=== PATIENT | female | born 1950 | race Caucasian/White ===

== ENCOUNTER 2016-09-21 16:35 | Inpatient (IN) | payer BC, MEDICARE ==
[2016-09-21] MEDS ORDERED: methylPREDNISolone 125 MG* 2 ML VIAL IV ONE (17:06)
[2016-09-21] MEDS ORDERED: NS 0.9% 1000 ML* 1,000 ML IV ONE (17:06)
--- NOTE | 2016-09-21 18:06 | RAD ---
Indication: Cough. 2 views of the chest demonstrates no mediastinal shift. Heart is of normal size and configuration. Lungs are clear. Hyperinflated lung luu are noted. IMPRESSION: No active cardiopulmonary disease is noted.
[2016-09-21] MEDS ORDERED: GuaiFENesin DM* 5 ML UDC PO ONE (18:09)
[2016-09-21 18:23] LABS: Hematocrit 38 % (35-47); Hemoglobin 12.4 g/dl (12.0-16.0); Mean Corpuscular HGB Conc 33 g/dl (31-36); Mean Corpuscular Hemoglobin 29 pg (27-31); Mean Corpuscular Volume 89 fL (80-97); Mean Platelet Volume 8 um3 (7.4-10.4); Red Blood Count 4.21 10^6/ul (4.0-5.4); Red Cell Distribution Width 13 % (10.5-15); White Blood Count 13.1 10^3/ul (3.5-10.8)
[2016-09-21] MEDS ORDERED: Albuterol/Ipratropium NEB.SOL* Albuterol 2.5 MG/Ipratropium 0.5 MG 3 ML ONE (18:23)
[2016-09-21] MEDS: Albuterol/Ipratropium NEB.SOL* Albuterol 2.5 MG/Ipratropium 0.5 MG 3 ML INH SCH (18:26)
[2016-09-21 18:42] LABS: Albumin 3.9 g/dL (3.2-5.2); BUN/Creatinine Ratio 14.3 (8-20); C Reactive Protein 11.32 mg/L (< 5.00); Calcium 8.7 mg/dL (8.6-10.3); EGFR African American 139.3 (>60); EGFR Non-African American 108.3 (>60); Globulin 3.1 g/dL (2-4); Potassium 3.4 mmol/L (3.5-5.0); Total Bilirubin 0.3 mg/dL (0.2-1.0)
[2016-09-21] MEDS ORDERED: Potassium Chlor TAB* 20 MEQ TAB.ER PO ONE (18:47)
[2016-09-21] MEDS ORDERED: Aspirin EC TAB* 325 MG PO ONE (19:15)
[2016-09-21] MEDS ORDERED: Benzonatate CAP* 100 MG PO PRN (20:10)
[2016-09-21] MEDS ORDERED: NS 0.9% 1000 ML* 1,000 ML IV SCH (20:45)
[2016-09-21] MEDS ORDERED: Azithromycin TAB* 250 MG PO ONE (20:49)
[2016-09-21] MEDS ORDERED: Dicyclomine CAP* 10 MG PO PRN (20:53)
[2016-09-21 21:20] LABS: Magnesium 1.8 mg/dL (1.9-2.7)
[2016-09-21 21:56] LABS: Urine Bacteria 2+ (Absent); Urine Bilirubin Negative (Negative); Urine Glucose Negative (Negative); Urine Nitrite Negative (Negative)
[2016-09-21] MEDS ORDERED: Azithromycin TAB* 250 MG ONE (22:56)
--- NOTE | 2016-09-21 23:01 | HP ---
HISTORY AND PHYSICAL: DATE OF ADMISSION: 09/21/16 PRIMARY CARE PROVIDER: John Trujillo MD ATTENDING PHYSICIAN: Daquan Braun MD* (dictated by Mariana Anderson NP) CHIEF COMPLAINT: Cough with associated chest tightness with pain radiating into the neck and left arm. HISTORY OF PRESENT ILLNESS: Ms. Rodriguez is a 66-year-old female with past medical history significant for anxiety, depression, migraines, insomnia, back pain, and tobacco abuse who presents to the emergency room with complaints of cough for 1 day with associated chest discomfort. 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 The patient states that the cough is occasionally productive, but is mostly dry. She took Throat Coat tea, which did help some with her cough. The patient is unaware if she has had fever or chills. She is always cold, although she did have some sweating yesterday with opening and closing windows, trying to get comfortable with temperature. The patient reports chest tightness that started yesterday. She is unsure if this is exacerbated by any exertion as she has not been very active since this occurred. She also has had a shortness of breath feeling, though she is unable to catch her breath with her cough. She denies any nausea. The patient states the pain initially started at her left breast and then travelled to her collar bone and then to her arm and into her forearm and thumb on the left side. The patient also states that she just generally feels foggy. Based off her symptoms , she decided to present to the emergency room for further evaluation of her symptoms. While in the emergency room, the patient received IV fluids, Robitussin, DuoNeb , Solu-Medrol, and aspirin. She initially had wheezing upon her arrival that resolved. The patient also states that her chest pain, cough, and shortness of breath has improved since her DuoNeb. The patient had labs remarkable for elevated white blood cell count of 13.1. Sodium of 130, potassium of 3.4, chloride of 100, CRP of 11.32. Troponin was 0.00. The patient had a chest x- ray showing no active cardiopulmonary disease. She had an EKG showing sinus tachycardia with rate of 102. She was noted to have ST depression in leads 2, 3 , aVF and V3 to V5. She has no previous EKGs for comparison. Hospitalists were asked to evaluate the patient for admission. PAST MEDICAL HISTORY: 1. Anxiety. 2. Depression. 3. Insomnia. 4. Back pain. 5. Migraines. 6. Tobacco abuse. PAST SURGICAL HISTORY: 1. Status post tubal ligation. 2. Status post appendectomy. 3. Status post ORIF of her left leg. HOME MEDICATIONS: Include: 1. Trazodone 50 to 100 mg oral daily at bedtime as needed for sleep. 2. Clonazepam 1 mg oral twice daily. 3. Ambien 10 mg oral daily at bedtime as needed for sleep. 4. Imitrex 6 mg subcutaneous as needed for migraine headache. 5. Ventolin 10 to 20 mg oral 4 times daily as needed for cramping. 6. Flexeril 5 to 10 mg oral daily at bedtime as needed for muscle spasms. 7. Celexa 40 mg oral daily. ALLERGIES: REMERON, lactose intolerant, AUGMENTIN, PRISTIQ, and ABILIFY. FAMILY HISTORY: The patient's maternal grandmother had a history of cardiomyopathy. She reports that her maternal grandmother's siblings all had heart disease and passed in their 60s. The patient denies any family history of diabetes mellitus. Her maternal grandfather had a history of lung cancer. The patient's mother had a history of COPD and her father passed at age 58 from emphysema. SOCIAL HISTORY: The patient smoked approximately a quarter pack a day for the last 45 to 50 years. She denies alcohol or recreational drug use. 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 The patient's daughter, Ernestine Gomez (Maggie), will be her surrogate decision maker in the event she is unable to make decisions for herself. Dianne can be reached at [phone]. REVIEW OF SYSTEMS: I performed a 14-point review of systems. All the pertinent positives and negatives are mentioned in the history of present illness. The remaining review of systems is negative. PHYSICAL EXAMINATION GENERAL APPEARANCE: The patient is alert, pleasant, appears to be in no acute distress. VITAL SIGNS: Temperature 98.8, heart rate 102, respiratory rate 19, O2 sat 96% on room air, blood pressure 116/56. HEENT: Normocephalic, atraumatic. Pupils are equal and reactive to light. Extraocular movements are intact. NECK: Supple. There is no lymphadenopathy noted. RESPIRATORY: There is no accessory muscle use and the lungs are clear to auscultation bilateral. CARDIOVASCULAR: Regular rate and rhythm. S1 and S2 present. There are no murmurs, rubs or gallops heard. ABDOMEN: Soft, nontender, and nondistended. There are bowel sounds present x4. EXTREMITIES: There is no lower extremity edema. DP and PT pulses are 2+ and symmetric. MUSCULOSKELETAL: There is no clubbing or cyanosis noted. The patient exhibits good strength in all extremities. Chest discomfort is reproducible with palpation to the left breast. NEUROLOGICAL: The patient is alert and oriented x4. Cranial nerves II through XII are grossly intact. PSYCHOLOGICAL: The patient is calm and cooperative. SKIN: There are no rashes or abnormalities seen. DIAGNOSTIC STUDIES/LABORATORY DATA: Sodium 130, potassium 3.4, chloride 100, CO2 22, BUN 8, creatinine 0.56, glucose 91. Troponin 0.00, CRP 11.32. White blood cell count 13.1, hemoglobin 12.4, hematocrit 38, and platelet count 290. EKG shows a sinus tachycardia with a rate of 102. There are ST depressions in leads 2, 3, aVF and V3 to V5. There is no previous EKG for comparison. Chest x - ray from today, radiologist's impression: No active cardiopulmonary disease. IMPRESSION: Ms. Rodriguez is a 66-year-old female with past medical history significant for anxiety, depression, insomnia, back pain, and tobacco abuse who presents to the emergency room with complaints of chest pain and cough. She will be admitted as an observation for chest pain and chronic obstructive pulmonary disease exacerbation. ASSESSMENT/PLAN: 1. Chest pain. The patient will be admitted to rule out acute coronary syndrome. She will be monitored on telemetry. We will trend her troponins. If she does in fact rule out for acute coronary syndrome, she will undergo a nuclear chemical stress test in the morning. The patient has ST depressions in her anterolateral leads, we will repeat an EKG in the morning. This could be rate related demand ischemia or due to her underlying chronic obstructive pulmonary disease exacerbation. The patient's chest discomfort is also reproducible around her left breast with palpation. 2. Chronic obstructive pulmonary disease exacerbation. I suspect this could be bronchitis. The patient will be placed on oral prednisone, DuoNebs as needed , Tessalon Perles and azithromycin. 3. Anxiety and depression. The patient will be continued on clonazepam and Celexa. 4. Insomnia. The patient will be continued on her home Ambien. 5. Hyponatremia. The patient will be given gentle IV hydration overnight. 6. Hypokalemia. The patient received potassium replacement in the emergency room. We will recheck her labs in the morning. We will also check a magnesium and replace as needed. 7. Code status. Full code. 8. Fluids, electrolytes, and nutrition. The patient will be on a heart heathy diet. 9. DVT prophylaxis. She is at high risk and will be on subcu heparin. 10. Disposition. Observation for acute coronary syndrome rule out and chronic obstructive pulmonary disease exacerbation. TIME SPENT: The time for this admission was 60 minutes, 35 minutes were spent face- to-face with the patient discussing medications, past medical history and the events leading up to her arrival today and performing physical examination. The case was reviewed with the attending, Dr. Braun, who agrees with the plan of care. Reviewed by RYAN MAYES-Deysi 09/24/16 [id number] CC: oJhn Trujillo MD * [id number]/[facility] #: [id number] YULISA
[2016-09-21] MEDS: clonazePAM TAB(*) 1 MG PO SCH (23:03)
[2016-09-21] MEDS: Heparin VIAL(*) 5000 UNITS/ML VIAL (FIVE THOUSAND) SUBCUT SCH (23:04)
[2016-09-21] MEDS: Cyclobenzaprine TAB* 10 MG PO PRN (23:12)
[2016-09-21] MEDS: Zolpidem TAB* 10 MG PO PRN (23:13)
[2016-09-22 04:59] LABS: Hematocrit 35 % (35-47); Hemoglobin 11.4 g/dl (12.0-16.0); Mean Corpuscular HGB Conc 33 g/dl (31-36); Mean Corpuscular Hemoglobin 30 pg (27-31); Mean Corpuscular Volume 89 fL (80-97); Mean Platelet Volume 8 um3 (7.4-10.4); Red Blood Count 3.88 10^6/ul (4.0-5.4); Red Cell Distribution Width 14 % (10.5-15); White Blood Count 11.6 10^3/ul (3.5-10.8)
[2016-09-22 05:11] LABS: BUN/Creatinine Ratio 22.4 (8-20); Calcium 8.5 mg/dL (8.6-10.3); EGFR African American 133.8 (>60); Potassium 4.1 mmol/L (3.5-5.0)
[2016-09-22] MEDS: Heparin VIAL(*) 5000 UNITS/ML VIAL (FIVE THOUSAND) SUBCUT SCH ×3 (05:27→20:15)
[2016-09-22] MEDS: clonazePAM TAB(*) 1 MG PO SCH ×2 (08:17→20:15)
[2016-09-22] MEDS: predniSONE TAB* 20 MG PO SCH (08:18)
[2016-09-22] MEDS: Citalopram TAB* 40 MG PO SCH (08:19)
[2016-09-22] MEDS: Azithromycin TAB* 250 MG PO SCH (08:19)
[2016-09-22] MEDS: Albuterol/Ipratropium NEB.SOL* Albuterol 2.5 MG/Ipratropium 0.5 MG 3 ML INH PRN (08:22)
--- NOTE | 2016-09-22 09:36 | ED ---
Rosemarie Chapin Matthew, scribed for Asim Armstrong MD on 09/21/16 at 1809 . Respiratory - HPI Summary HPI Summary: A 66 y/o female presents to the ED with a productive cough since yesterday. She' s unsure if she's had chills or fevers. Associated symptoms include chest pain. She's also having neck and the left arm pain. FHx of COPD. The patient smokes 1/ 4 ppd since she was 10 y/o. - History of Current Complaint Chief Complaint: EDUpperRespComplaint Stated Complaint: COUGH,CHEST TIGHTNESS,SHOULDER AND ARM PAIN Time Seen by Provider: 09/21/16 16:52 Hx Obtained From: Patient Onset/Duration: Gradual Onset, Lasting Hours, Still Present Timing: Constant Initial Severity: Mild Current Severity: Mild Pain Intensity: 5 Character: Cough (Productive) Aggravating Factor(s): Nothing Alleviating Factor(s): Nothing Associated Signs and Symptoms: Chest Pain with Cough - Allergy/Home Medications Allergies/Adverse Reactions: Allergies Allergy/AdvReac Type Severity Reaction Status Date / Time Amoxicillin [From Augmentin] Allergy GI Upset Verified 09/21/16 16:41 Aripiprazole [From Abilify] Allergy GI Upset Verified 09/21/16 16:41 Clavulanic Acid Allergy GI Upset Verified 09/21/16 16:41 [From Augmentin] Desvenlafaxine [From Pristiq] Allergy GI Upset Verified 09/21/16 16:41 Lactose Intolerance (GI) Allergy GI Upset Verified 09/21/16 16:41 Mirtazapine [From Remeron] Allergy Unknown Verified 09/21/16 16:41 Reaction Details PMH/Surg Hx/FS Hx/Imm Hx Cardiovascular History: Reports: Hx Deep Vein Thrombosis Respiratory History: Reports: Hx Pulmonary Embolism, Other Respiratory Problems/ Disorders - hx bronchitis GI History: Reports: Hx Diverticulosis Neurological History: Reports: Hx Migraine Psychiatric History: Reports: Hx Anxiety, Hx Depression - Surgical History Surgery Procedure, Year, and Place: tubal ligation, appendectomy Infectious Disease History: No Infectious Disease History: Denies: Traveled Outside the [place] in Last 30 Days - Family History Family History: FHx of COPD and emphysema - Social History Alcohol Use: None Substance Use Type: Reports: None Smoking Status (MU): Unknown if Ever Smoked Review of Systems Constitutional: Negative Eyes: Negative ENT: Negative Positive: Chest Pain - w/ cough Positive: Cough - productive Gastrointestinal: Negative Genitourinary: Negative Positive: Myalgia - left arm and neck Skin: Negative Neurological: Negative Psychological: Normal All Other Systems Reviewed And Are Negative: Yes Physical Exam - Summary Physical Exam Summary: VITAL SIGNS: Reviewed. GENERAL: Patient is a well developed and nourished female with some distress secondary to the shortness of breath. However, she is able to speak in full sentences. HEAD AND FACE: Normocephalic and atraumatic. EYES: PERRLA, EOMI x 2, No injected conjunctiva. EARS: Hearing grossly intact. Ear canals and tympanic membranes WNL MOUTH: Dry oral mucosa. NECK: Supple, trachea is midline, no adenopathy, no JVD, no carotid bruit. CHEST: Symmetric, No intercostal or abdominal retraction, LUNGS: Diffuse bilateral wheezing and decreased breath sounds.No crackles. CVS: RRR,, S1 and S2 present, no murmurs or gallops appreciated. ABDOMEN: Soft, non-tender. No signs of distention. Positive BS. No rebound, no guarding, and no masses palpated. EXTREMITIES: FROM in all major joints, no edema, no cyanosis or clubbing. NEURO: Alert and oriented x 3. No acute neurological deficits. Speech is normal and follows commands. SKIN: Dry and warm Triage Information Reviewed: Yes Vital Signs On Initial Exam: Initial Vitals Temp Pulse Resp BP Pulse Ox 99.1 F 90 20 125/56 100 09/21/16 16:42 09/21/16 16:42 09/21/16 16:42 09/21/16 16:42 09/21/16 16:42 Vital Signs Reviewed: Yes Diagnostics - Vital Signs Vital Signs Temp Pulse Resp BP Pulse Ox 09/21/16 16:42 99.1 F 90 20 125/56 100 - Laboratory Result Diagrams: 09/22/16 04:19 09/22/16 04:19 Lab Statement: Any lab studies that have been ordered have been reviewed, and results considered in the medical decision making process. - Radiology CXR Xray Interpretation: No Acute Changes - IMPRESSION: No active cardiopulmonary disease is noted. Radiology Interpretation Completed By: Radiologist - EKG NSR w/o GILDARDO. ST depression in III, AVF and V4 to V6 Cardiac Rate: NL EKG Rhythm: Sinus Rhythm Re-Evaluation - Re-Evaluation First Eval Re-Evaluation Time: 18:49 Change: Improved Comment: The patient's is feeling better. Disposition - Course Assessment/Plan: A 66 y/o female presents to the ED with a productive cough since yesterday. She's unsure if she's had chills or fevers. Associated symptoms include chest pain. She's also having neck and the left arm pain. FHx of COPD. The patient smokes 1/4 ppd since she was 10 y/o. Blood work WNL expect WBC of 13.1, sodium of 130, potassium of 3.4, c-reactive protein of 11.3. CXR shows no active cardio pulmonary disease. In the ED course, the patient was given IV fluids, robitussin for the cough, duonebs, and solumedrol for her wheezzing. She was also given ASA for the chest pain. After the medications, all symptoms have improved and the patient is feeling better. On re-evaluation, the lung are CTA bilaterally and there is no wheezing. EKG shows a ST depressions in leads III, AVF, V4 to V6. No old for comparison. Discussed the case with Dr. Braun who will admit the patient into his services to R/O ACS and COPD. Patient is A+O x 3. She is hemodynamically stable. - Differential Dx - Cardiopulmonary Differential Diagnoses - Cardiopulmonary: Asthma, Bronchitis, Exacerbation Of COPD - Diagnoses Provider Diagnoses: COPD exacerbation, chest pain r/o acs Discharge - Discharge Plan Condition: Stable Disposition: ADMITTED TO [facility] The documentation as recorded by the Rosemarie ball Matthew accurately reflects the service I personally performed and the decisions made by me, Asim Armstrong MD.
[2016-09-22] MEDS ORDERED: Regadenoson* 0.4 MG/5 ML SYRINGE ONE (09:55)
--- NOTE | 2016-09-22 14:04 | RAD ---
Edited for charges. INDICATION: Chest pain, ST depression. COMPARISON: There are no prior studies available for comparison. Technique: A single day myocardial perfusion stress study was performed. Initially the resting study was performed. The patient was given an intravenous injection of 10.4 mCi of technetium 99m tetrofosmin and and the heart was imaged in multiple projections. The patient returned later in the day and under the direction of Dr. Treviño, the patient was given intervenous injection of Lexiscan. Subsequently the patient was given intravenous injection of 24.8 mCi of technetium 99m tetrofosmin and the heart was imaged in multiple projections. Images were reconstructed in the axial, sagittal and coronal planes and in a 3- D format. FINDINGS: There appears to be normal wall motion and myocardial thickening. The left ventricular ejection fraction was calculated to be 1%. Review of the images demonstrates mild decreased activity in the anterior wall on both the post pharmacologic stress and resting images. There is otherwise normal distribution of radial pharmaceutical. There is elevation of the transiting ischemic dilatation ratio which is 1.35. The results of this exam were called to Dr. Magana. IMPRESSION: ELEVATION OF THE TRANSIENT ISCHEMIC DILATATION RATIO SUGGESTING THE POSSIBILITY OF MULTIVESSEL CORONARY ARTERY DISEASE. ASSESSMENT: High risk. Based on imaging criteria from ACC/AHA 2002 Guideline Update for the Management of Patients With Chronic Stable Angina Table 23. Noninvasive Risk Stratification. MTDD
[2016-09-22] MEDS ORDERED: Magnesium Sulfate 2 GM IV* 2 GM/50 ML BAG IVPB ONE (16:00)
--- NOTE | 2016-09-22 16:29 | ECHO ---
Patient: LALO RUANO [facility] Rec#: [id number] : 1950 Date: 09/22/2016 Age: 66y Height: 167.64 cm / 66.0 in Weight: 56.25 kg / 124.0 lbs Sex: F BSA: 1.63 Room#: 439 Admit Date#: 09/21/2016 Type: Inpatient Referring: Jami Magana DO Reading: Brian Casillas MD Fuel Technician: Zee Garcia,JILLIANCS,RDMS CC: John Trujillo MD Transthoracic Echocardiogram Indication: CP BP: 115/57 HR: 83 Rhythm: NSR Findings History: Smoker, COPD Technical Comments: The study quality is fair. Completed 1600 Left Ventricle: The left ventricular chamber size is normal. There is no left ventricular hypertrophy. Global left ventricular wall motion and contractility are within normal limits. The estimated ejection fraction is 55-60%. There is an E to A reversal in the mitral valve flow pattern suggestive of diastolic dysfunction. Left Atrium: The left atrial chamber size is normal. Right Ventricle: The right ventricle wall thickness is mildly increased. The right ventricular cavity size is normal. The right ventricular global systolic function is hyperdynamic. Right Atrium: The right atrial cavity size is normal. Aortic Valve: There is no evidence of aortic valve thickening. There is no evidence of aortic regurgitation. There is no evidence of aortic stenosis. Mitral Valve: The mitral valve leaflets are mildly thickened. There is no evidence of mitral regurgitation. There is no evidence of mitral stenosis. Tricuspid Valve: The tricuspid valve leaflets are normal. There is trace tricuspid regurgitation. Unable to estimate the right ventricular systolic pressure. Pulmonic Valve: The pulmonic valve structure is not well visualized. There is no evidence of pulmonic regurgitation. Pericardium: There is no significant pericardial effusion.No hemodynamic compromise. Aorta: The ascending aorta is not well visualized. The aortic arch is not well visualized. The aortic root is normal in size. Pulmonary Artery: The main pulmonary artery is not well visualized. Venous: The inferior vena cava appears normal. There is a greater than 50% respiratory change in the inferior vena cava dimension. Summary: There was not any prior study for comparison. Conclusions The left ventricular chamber size is normal. The estimated ejection fraction is 55-60%. There is an E to A reversal in the mitral valve flow pattern suggestive of diastolic dysfunction. There is trace tricuspid regurgitation. Unable to estimate the right ventricular systolic pressure. There is no significant pericardial effusion.No hemodynamic compromise. Measurements Name Value Normal Range RVIDd (AP) 2D 1.8 cm (0.9 - 2.6) RVDdMajor (2D) 2.8 cm (2.2 - 4.4) RAd ISD 4CH 3.8 cm (3.4 - 4.9) RA (A4C)W 3.5 cm (2.9 - 4.6) IVSd (2D) 1 cm (0.6 - 1) LVPWd (2D) 1 cm (0.6 - 1) LVIDd (2D) 3.4 cm (3.6 - 5.4) LVIDs (2D) 2.8 cm - LV FS (2D) 18 % (25 - 45) Aortic Annulus 2.1 cm (1.4 - 2.6) Ao root diameter (2D) 3 cm (2.1 - 3.5) LA dimension (AP) 2D 2.9 cm (2.3 - 3.8) LAd ISD 4CH 4.4 cm (2.9 - 5.3) LA ISD 4CH W 3.5 cm (2.5 - 4.5) Name Value Normal Range LA ESV SP 4CH (A/L) 37.22 ml - LA ESV SP 2CH (A/L) 46.56 ml - LA ESV BP (A/L) 42.34 ml - LA ESV BP (A/L) index 26 ml/m2 - LA ESV SP 4CH (MOD) 35.01 ml - LA ESV SP 2CH (MOD) 43.27 ml - Name Value Normal Range MV E-wave Vmax 0.8 m/sec - MV deceleration time 166 msec - MV A-wave Vmax 1 m/sec - MV E:A ratio 0.8 ratio - P. vein S-wave Vmax 0.4 m/sec - P. vein D-wave Vmax 0.3 m/sec - P. vein S:D Vmax ratio 1.7 ratio - LV septal e' Vmax 0.06 m/sec - LV lateral e' Vmax 0.06 m/sec - LV E:e' septal ratio 13 ratio - LV E:e' lateral ratio 13 ratio - Name Value Normal Range AV Vmax 1.2 m/sec - AV VTI 20.4 cm - AV peak gradient 6 mmHg - AV mean gradient 2 mmHg - LVOT Vmax 0.7 m/sec - LVOT VTI 15 cm - LVOT peak gradient 2 mmHg - LVOT mean gradient 1 mmHg - YIFAN Vmax 0.6 m/sec - Name Value Normal Range RAP 8 mmHg - IVC diameter 2.2 cm - Name Value Normal Range PV Vmax 0.4 m/sec - PV peak gradient 0.8 mmHg -
--- NOTE | 2016-09-22 16:30 | PN ---
Subjective Date of Service: 09/22/16 Interval History: Pt is feeling ok. She continues to have L sided chest discomfort, cough and some sputum production. She continues to have some SOB. Objective Active Medications: Albuterol/Ipratropium (Duoneb (Albuterol 2.5 Mg/Ipratropium 0.5 Mg)) 1 neb INH Q4H PRN PRN Reason: SOB/WHEEZING Last Admin: 09/22/16 08:22 Dose: 1 neb Azithromycin (Zithromax Tab*) 250 mg PO DAILY [facility] Last Admin: 09/22/16 08:19 Dose: 250 mg Benzonatate (Tessalon Cap*) 100 mg PO BID PRN PRN Reason: COUGH Last Admin: 09/22/16 08:17 Dose: 100 mg Citalopram Hydrobromide (Celexa Tab*) 40 mg PO DAILY [facility] Last Admin: 09/22/16 08:19 Dose: 40 mg Clonazepam (Klonopin Tab(*)) 1 mg PO BID [facility] Last Admin: 09/22/16 08:17 Dose: 1 mg Cyclobenzaprine HCl (Flexeril Tab*) 5 mg PO BEDTIME PRN PRN Reason: SPASMS - MUSCLE Last Admin: 09/21/16 23:12 Dose: 5 mg Dicyclomine HCl (Bentyl Cap*) 10 mg PO QID PRN PRN Reason: cramping/bloating Heparin Sodium (Porcine) (Heparin Vial(*)) 5,000 units SUBCUT Q8HR [facility] Last Admin: 09/22/16 05:27 Dose: 5,000 units Magnesium Sulfate (Magnesium Sulfate 2 Gm Iv*) 2 gm in 50 mls @ 50 mls/hr IVPB ONCE ONE Stop: 09/22/16 16:59 Prednisone (Deltasone Tab*) 40 mg PO DAILY [facility] Last Admin: 09/22/16 08:18 Dose: 40 mg Zolpidem Tartrate (Ambien Tab*) 10 mg PO BEDTIME PRN PRN Reason: INSOMNIA Last Admin: 09/21/16 23:13 Dose: 10 mg Vital Signs 09/21/16 09/21/16 09/21/16 20:01 21:00 21:22 Temperature Pulse Rate 109 96 94 Respiratory 22 20 25 Rate Blood Pressure 117/55 (mmHg) O2 Sat by Pulse 96 97 95 Oximetry 09/21/16 09/21/16 09/21/16 21:25 21:30 22:06 Temperature Pulse Rate 93 89 Respiratory 20 27 16 Rate Blood Pressure 106/50 (mmHg) O2 Sat by Pulse 95 95 Oximetry 09/21/16 09/21/16 09/21/16 22:28 23:03 23:12 Temperature 97.7 F Pulse Rate 91 Respiratory 16 16 16 Rate Blood Pressure 118/50 (mmHg) O2 Sat by Pulse 97 Oximetry 09/22/16 09/22/16 09/22/16 00:30 01:03 01:12 Temperature 97.9 F Pulse Rate 94 Respiratory 20 16 16 Rate Blood Pressure 94/77 (mmHg) O2 Sat by Pulse 92 Oximetry 09/22/16 09/22/16 09/22/16 04:22 07:23 08:17 Temperature 98.2 F 97.6 F Pulse Rate 89 84 Respiratory 20 16 16 Rate Blood Pressure 100/45 115/57 (mmHg) O2 Sat by Pulse 96 96 Oximetry 09/22/16 10:05 Temperature Pulse Rate 80 Respiratory 16 Rate Blood Pressure (mmHg) O2 Sat by Pulse 99 Oximetry Oxygen Devices in Use Now: None Appearance: Middle aged female sitting up in bed, NAD Eyes: No Scleral Icterus Ears/Nose/Mouth/Throat: Mucous Membranes Moist Respiratory: Symmetrical Chest Expansion and Respiratory Effort, - - decreased breath sounds in all lung luu, no crackles Cardiovascular: NL Sounds; No Murmurs; No JVD, RRR, No Edema Abdominal: NL Sounds; No Tenderness; No Distention Extremities: No Clubbing, Cyanosis Skin: No Rash or Ulcers, No Nodules or Sclerosis Neurological: Alert and Oriented x 3 Result Diagrams: 09/22/16 04:19 09/22/16 04:19 Microbiology and Other Data: Microbiology 09/21/16 21:44 Urine Culture - Preliminary Urine Klebsiella Pneumoniae Assess/Plan/Problems-Billing Ms Rodriguez is a 66 yo F who has a h/o tobacco abuse who presented to the ER with c/o chest pain, cough and SOB and was admitted for evaluation of the chest pain and for treatment of a probable bronchitis. - Patient Problems (1) Chest pain Current Visit: Yes Status: Acute Code(s): R07.9 - CHEST PAIN, UNSPECIFIED SNOMED Code(s): 03397075 Comment: The patient's story for cardiac chest pain is not good however she had EKG changes (ST depressions in inferior/lateral leads). Her stress test showed an increased transient ischemic dilation ratio. I have asked for a cardiology evaluation. Echo has been obtained but the results are pending. (2) Bronchitis Current Visit: Yes Status: Acute Code(s): J40 - BRONCHITIS, NOT SPECIFIED ACUTE OR CHRONIC SNOMED Code(s): 74873630 Comment: The patient continues to have harsh frequent cough. Productive of sputum. No clear infiltrate on Xray. Will continue azithromycin and prednisone. Increase tessalon to 200mg TID standing. (3) Tobacco abuse Current Visit: Yes Status: Acute Code(s): Z72.0 - TOBACCO USE SNOMED Code( s): 290210741 Comment: Smoking cessation education provided to the patient. (4) DVT prophylaxis Current Visit: Yes Status: Acute Code(s): AHT3483 - SNOMED Code(s): 395675719 Comment: SQ heparin (5) Full code status Current Visit: Yes Status: Acute Code(s): Z78.9 - OTHER SPECIFIED HEALTH STATUS SNOMED Code(s): 875267897
[2016-09-22 18:09] LABS: Erythrocyte Sed Rate 29 mm/Hr (0-40)
[2016-09-22] MEDS: Benzonatate CAP* 100 MG PO SCH (20:15)
[2016-09-22] MEDS: Cyclobenzaprine TAB* 10 MG PO PRN (22:50)
[2016-09-22] MEDS: Zolpidem TAB* 10 MG PO PRN (22:50)
--- NOTE | 2016-09-23 00:05 | CONS ---
CARDIOLOGY CONSULT: DATE OF CONSULT: 09/22/16 HISTORY OF PRESENT ILLNESS: I was asked by Dr. Magana from the hospitalist service to see this pleasant 66-year-old female patient who presented to the hospital with 2 days of cough and sore throat and then developed into chest pain , arm pain, and she had initially an EKG with a heart rate of [address] depressions. A repeat EKG after her heart rate slowed down showed normalization of her ST abnormalities. She did undergo a nuclear Myoview stress test. The nuclear Myoview stress test showed no overt ischemia; however , her TDI which is the transient dilatation ischemic ratio suggesting the possibility of multivessel coronary artery disease and was reported to have a high risk, her TDI was 1.35. A repeat EKG now showed her to be in sinus tachycardia with a heart rate of 100. She has left atrial abnormality and biatrial enlargement, nondiagnostic RSR, and some nondiagnostic ST depressions. Her symptoms are has some tenderness and then, she had a history of pleurisy. She gives no fever, no chills, no nausea, no vomiting, no hematochezia, no history of diabetes, no history of hypertension. She gives no history of coronary artery disease, no history of myocardial infarction. She had been a smoker for a long period of time now. She smokes quater a pack per day. She is concerned about her symptoms. She was ruled out for myocardial infarction by negative troponins. She had a history of bronchitis in the past and possible COPD. She is feeling much better, although she still has some of the symptoms. She gives no orthopnea, no PNDs, no syncope, no fever, no chills, no history of congestive heart failure, no swelling in the lower extremities, no hematochezia is appreciated. She did receive Robitussin in the emergency room, Solu-Medrol, DuoNeb, and aspirin. Initially, she had some wheezing, then they improved after that. Review of all other systems essentially is negative. PAST MEDICAL HISTORY: Include anxiety, depression, insomnia, back pain, migraines, and tobacco abuse. PAST SURGICAL HISTORY: Status post tubal ligation, status post appendectomy, status post ORIF of her left leg. MEDICATIONS: At home include: 1. Ambien 10 mg as needed. 2. Imitrex for migraine 6 mg subcu. 3. Ventolin as needed. 4. Flexeril 5 to 10 mg daily. 5. Celexa 40 mg daily. 6. Trazodone 50 to 100 mg daily as needed. Her medications in the hospital: 1. DuoNeb. 2. She is on azithromycin 250 mg daily. 3. Klonopin 1 mg b.i.d. 4. Flexeril 5 mg at bedtime. 5. Bentyl 10 mg 4 times a day. 6. Heparin 5000 units subcu q.8 hours. 7. Prednisone 40 mg daily. 8. Ambien 10 mg at bedtime p.r.n. ALLERGIES: She is allergic to multiple medications including AMOXICILLIN, CLAVULANIC ACID, AUGMENTIN, and LACTOSE INTOLERANCE. FAMILY HISTORY: There is some family history of coronary artery disease. She smokes now a quarter of pack for the last 45 to 50 years. No history of alcoholism. No history of illicit drug use. REVIEW OF SYSTEMS: Review of all other systems essentially is negative. PHYSICAL EXAM: She is awake, alert, and oriented. She is not in acute distress. Her vitals: Blood pressure is 120/70, pulse is 90, sinus rhythm. Head and Neck Exam: Normocephalic, atraumatic. Head, ears, nose, and throat essentially benign. Neck supple. JVP is not elevated. No carotid bruit. No masses in the neck is appreciated. Chest: Clear to auscultation. No rales, no wheeze, no added sounds appreciated. Heart: Normal. Regular S1, S2. No added sounds. No gallops. No rubs. Abdomen: Benign, soft. Positive bowel sounds. Extremities: No edema, no cyanosis, no clubbing. Skin exam is normal. Psych: Normal affect and mood. STAFF ANESTHESIOLOGIST: No focal deficits appreciated. DIAGNOSTIC STUDIES/LAB DATA: Sodium 130. Potassium initially 3.4; it is 4.1 now. Chloride is 109. BUN 13, creatinine 0.58, calcium 8.5, magnesium 1.8. CRP 11.32. ESR pending. White blood cell 11.6, hemoglobin 11.4, and hematocrit 35. EKG as described. She had an echocardiogram that showed normal left ventricular systolic function and she had no significant valvular disease. Maybe, there is a trivial pericardial effusion. IMPRESSION: The patient is a 66-year-old female with: 1. Complex presentation of cough, chest pain, has some tenderness and pleuritic component and numbness in her left arm, ruled out for myocardial infarction by negative troponin. 2. Significant ST depressions when she had a heart rate of 102, up in the presentation by her EKG almost normalized after her heart rate slowed down. 3. Abnormal nuclear stress test was reported to be high risk based on the transient ischemic dilatation ratio was elevated concerning for multivessel coronary artery disease. 4. History of long use of tobacco consumption. 5. Elevated CRP. 6. Abnormal EKG as described. PLAN: Her presentation is complex. Someone cannot rule out coronary artery disease for sure. She does have risk factors including her age, current tobacco consumption for a long period of time, and family history and unknown cholesterol status. I am concerned about her TDI and the high risk reported nuclear stress test. Based on that, to further evaluate this and she is still having some component of chest pain, I do recommend left cardiac catheterization to evaluate her coronary anatomy. We spent a lengthy discussion today. Benefits, risks discussed with the patient. She is willing to proceed. Decisions will be based on the results of her cardiac catheterization. Meanwhile, she is to continue on her current medications. If she has no significant coronary artery disease, then her symptoms could be explained on pleuritic in nature between pleurisy, bronchitis, and possible pericarditis with trivial pericardial effusion. Her ESR is pending at the moment. I explained all of the above to her. I answered all of her concerns and questions up to her satisfaction. TIME SPENT: More than half of at least 65 plus minutes was [id number] in the education and counseling mode explaining all of the above and making further recommendations accordingly. CC: Dr. Trujillo; Hospitalist Service; Dr. Magana; Dr. Casillas* [id number]/[facility] #: [id number] [facility] CAMPUSEduarda
[2016-09-23] MEDS: Heparin VIAL(*) 5000 UNITS/ML VIAL (FIVE THOUSAND) SUBCUT SCH ×3 (05:03→21:48)
[2016-09-23] MEDS ORDERED: diPHENhydraMINE PO* 50 MG PO ONE (06:00)
[2016-09-23] MEDS ORDERED: Diazepam TAB(*) 5 MG PO ONE (06:00)
[2016-09-23] MEDS ORDERED: NS 0.45% 1000 ML BAG* 1,000 ML IV SCH (06:00)
--- NOTE | 2016-09-23 07:53 | PN ---
Subjective Date of Service: 09/23/16 Interval History: Pt is feeling better in terms of her cough but she is still coughing frequently. She is bringing up some sputum but not much. She has been up and walking without any difficulty. Objective Active Medications: Albuterol/Ipratropium (Duoneb (Albuterol 2.5 Mg/Ipratropium 0.5 Mg)) 1 neb INH Q4H PRN PRN Reason: SOB/WHEEZING Last Admin: 09/22/16 08:22 Dose: 1 neb Azithromycin (Zithromax Tab*) 250 mg PO DAILY [facility] Last Admin: 09/22/16 08:19 Dose: 250 mg Benzonatate (Tessalon Cap*) 200 mg PO TID [facility] Last Admin: 09/22/16 20:15 Dose: 200 mg Citalopram Hydrobromide (Celexa Tab*) 40 mg PO DAILY [facility] Last Admin: 09/22/16 08:19 Dose: 40 mg Clonazepam (Klonopin Tab(*)) 1 mg PO BID [facility] Last Admin: 09/22/16 20:15 Dose: 1 mg Cyclobenzaprine HCl (Flexeril Tab*) 5 mg PO BEDTIME PRN PRN Reason: SPASMS - MUSCLE Last Admin: 09/22/16 22:50 Dose: 5 mg Dicyclomine HCl (Bentyl Cap*) 10 mg PO QID PRN PRN Reason: cramping/bloating Heparin Sodium (Porcine) (Heparin Vial(*)) 5,000 units SUBCUT Q8HR [facility] Last Admin: 09/23/16 05:03 Dose: 5,000 units Sodium Chloride (Ns 0.45% 1000 Ml Bag*) 1,000 mls @ 60 mls/hr IV .PER RATE [facility] Prednisone (Deltasone Tab*) 40 mg PO DAILY [facility] Last Admin: 09/22/16 08:18 Dose: 40 mg Zolpidem Tartrate (Ambien Tab*) 10 mg PO BEDTIME PRN PRN Reason: INSOMNIA Last Admin: 09/22/16 22:50 Dose: 10 mg Vital Signs 09/22/16 09/22/16 09/22/16 08:17 10:05 16:13 Temperature 98.0 F Pulse Rate 80 87 Respiratory 16 16 20 Rate Blood Pressure 132/88 (mmHg) O2 Sat by Pulse 99 98 Oximetry 09/22/16 09/22/16 09/22/16 19:38 20:15 22:50 Temperature 98.5 F Pulse Rate 89 Respiratory 24 17 16 Rate Blood Pressure 103/57 (mmHg) O2 Sat by Pulse 99 Oximetry 09/23/16 09/23/16 00:21 07:35 Temperature 97.9 F 98.0 F Pulse Rate 78 70 Respiratory 20 20 Rate Blood Pressure 103/57 110/66 (mmHg) O2 Sat by Pulse 98 94 Oximetry Oxygen Devices in Use Now: None Appearance: Middle aged female lying in bed, NAD Eyes: No Scleral Icterus Ears/Nose/Mouth/Throat: Mucous Membranes Moist Respiratory: Symmetrical Chest Expansion and Respiratory Effort, Clear to Auscultation - markedly decreased breath sounds in all lung luu, no crackles heard Cardiovascular: NL Sounds; No Murmurs; No JVD, RRR, No Edema Abdominal: NL Sounds; No Tenderness; No Distention Extremities: No Clubbing, Cyanosis Skin: No Rash or Ulcers, No Nodules or Sclerosis Neurological: Alert and Oriented x 3 Result Diagrams: 09/22/16 04:19 09/22/16 04:19 Microbiology and Other Data: Microbiology 09/21/16 21:44 Urine Culture - Preliminary Urine Klebsiella Pneumoniae Assess/Plan/Problems-Billing Ms Rodriguez is a 66 yo F who has a h/o tobacco abuse who presented to the ER with c/o chest pain, cough and SOB and was admitted for evaluation of the chest pain and for treatment of a probable bronchitis. - Patient Problems (1) Chest pain Current Visit: Yes Status: Acute Code(s): R07.9 - CHEST PAIN, UNSPECIFIED SNOMED Code(s): 60400557 Comment: The plan is for the patient to undergo cardiac catheterization this AM. Echo showed a normal EF and no significant focal wall motion abnormalities. Will await the results of the catheterization. (2) Bronchitis Current Visit: Yes Status: Acute Code(s): J40 - BRONCHITIS, NOT SPECIFIED ACUTE OR CHRONIC SNOMED Code(s): 03321413 Comment: The patient continues to have harsh frequent cough. Productive of sputum. Continue azithromycin to complete 5 days total of Abx. Continue prednisone-will not taper yet as her breath sounds are diminished in all lung luu. Continue tessalon TID for now. (3) Tobacco abuse Current Visit: Yes Status: Acute Code(s): Z72.0 - TOBACCO USE SNOMED Code( s): 400894661 Comment: Encourage smoking cessation. (4) DVT prophylaxis Current Visit: Yes Status: Acute Code(s): SJE6330 - SNOMED Code(s): 012292877 Comment: SQ heparin (5) Full code status Current Visit: Yes Status: Acute Code(s): Z78.9 - OTHER SPECIFIED HEALTH STATUS SNOMED Code(s): 226031090
[2016-09-23] MEDS ORDERED: Iohexol 350 (CONTRAST) 200 ML MDV IV ONE (08:55)
[2016-09-23] MEDS ORDERED: Midazolam* 1 MG/ML 5 ML VIAL (5 MG) ONE (08:55)
[2016-09-23] MEDS ORDERED: fentaNYL* 50 MCG/ML 2 ML VIAL (100 MCG VIAL) ONE (08:55)
[2016-09-23] MEDS ORDERED: Lidocaine 1% INJ* 10 MG/ML 30 ML SDV ONE (08:55)
[2016-09-23] MEDS ORDERED: Heparin 2 UNITS/ML IVPREMIX* 3,000 ML IV ONE (08:55)
[2016-09-23] MEDS: clonazePAM TAB(*) 1 MG PO SCH ×2 (09:11→20:04)
[2016-09-23] MEDS: predniSONE TAB* 20 MG PO SCH (09:11)
[2016-09-23] MEDS: Benzonatate CAP* 100 MG PO SCH ×3 (09:11→20:04)
[2016-09-23] MEDS: Citalopram TAB* 40 MG PO SCH (09:11)
[2016-09-23] MEDS: Azithromycin TAB* 250 MG PO SCH (09:12)
[2016-09-23] MEDS: Albuterol/Ipratropium NEB.SOL* Albuterol 2.5 MG/Ipratropium 0.5 MG 3 ML INH PRN (09:17)
[2016-09-23] MEDS ORDERED: nitroGLYCERIN DRIP* 250 ML ONE (10:12)
[2016-09-23] MEDS ORDERED: Aspirin Low Dose CHEW TAB* 81 MG ONE ×2 (10:12→10:13)
[2016-09-23] MEDS ORDERED: Bivalirudin(*) 250 MG VIAL ONE (10:21)
[2016-09-23] MEDS ORDERED: Ticagrelor* 90 MG TAB PO ONE (10:29)
[2016-09-23] MEDS ORDERED: Adenosine* 3 MG/ML VIAL ONE (10:53)
[2016-09-23] MEDS ORDERED: Nitroglycerin TAB 0.4 MG* 0.4 MG TAB SL PRN (11:22)
[2016-09-23] MEDS ORDERED: fentaNYL* 50 MCG/ML 2 ML VIAL (100 MCG VIAL) IV PRN (11:25)
[2016-09-23] MEDS ORDERED: Atorvastatin* 80 MG TAB PO ONE (11:30)
[2016-09-23] MEDS ORDERED: NS 0.9% 1000 ML* 1,000 ML IV SCH (11:30)
[2016-09-23] MEDS: Levofloxacin 500 MG IVPREMIX(* 500 MG/100 ML BAG IVPB SCH (19:58)
[2016-09-23] MEDS: Atorvastatin* 80 MG TAB PO SCH (20:04)
[2016-09-23] MEDS: Ticagrelor* 90 MG TAB PO SCH (20:05)
[2016-09-23] MEDS: Zolpidem TAB* 5 MG PO PRN (21:51)
--- NOTE | 2016-09-24 01:07 | CATH ---
INTERVENTIONAL REPORT: DATE OF PROCEDURE: 09/23/16 - ROOM #447 INDICATION FOR PROCEDURE: The patient with presentation of chest discomfort, left arm and left hand discomfort with abnormal EKG with ST segment depressions in the inferior apical leads with cardiac catheterization for an abnormal nuclear study with presence of ? 80% proximal right coronary artery lesion, asked by Dr. Casillas to further assess the lesion. PROCEDURE: Fractional flow reserve analysis of the right coronary artery and primary stenting with a 3.0 x 24 long Synergy drug-eluting stent. DESCRIPTION OF PROCEDURE: The patient was already prepped and draped in a sterile fashion by Dr. Casillas, who had performed the diagnostic procedure. The patient had a 6-Mauritian sheath in place as well. The patient received 60 units per kilogram of heparin intravenously. ACT was found to be greater than 250. Guiding views were then obtained utilizing a 6-Mauritian FR4 curve guiding catheter. Intracoronary nitroglycerin was given to pre-dilate the artery. Following this, the COMET pressure wire by [employer] was advanced and calibrated just outside the guide catheter and the pressure wire was equilibrated. The catheter was then passed distal to the obstruction. The patient received 36 mcg of adenosine intracoronary and fractional flow reserve was performed. Following this, a decision was made to intervene into the proximal right coronary artery. The existing FFR wire was utilized to perform stent deployment. A 3.0 x 24 long Synergy drug-eluting stent was deployed with post deployment balloon inflations made utilizing a 3.0 x 12 mm long NC Emerge balloon dilated to high pressure. The artery was then assessed post deployment in multiple views. MEDICATIONS GIVEN DURING THE PROCEDURE: Included 100 mcg intracoronary nitroglycerin in addition to 36 mcg of intracoronary adenosine, 180 mg of Brilinta orally and a total of 3400 units of heparin intravenously. The radiation exposure of the procedure included 9.1 minutes of fluoro time. The air kerma radiation was 548 milligray. The DAPA radiation was 2307 microgray per meter squared. RESULTS: Fractional flow reserve analysis of the proximal right coronary artery lesion: FFR value of 0.77 consistent with significant lesion with the administration of 36 mcg of adenosine intracoronary. Intervention into proximal to right coronary artery: Successful reduction of 80% lesion with residual stenosis of 5% to 10% with JARRET-3 flow. No dissection seen utilizing a 3.0 x 24 mm long Synergy drug- eluting stent post dilated with high pressure inflations to obtain 3 to 3.2 mm. The patient will be placed on high-dose atorvastatin as well as dual antiplatelet therapy. Ongoing cardiac management willl be under Dr. Casillas's guidance. CC: Dr. Casillas; Dr. John Trujillo* [id number]/[facility] #: [id number] MTDD
--- NOTE | 2016-09-24 01:50 | CATH ---
CARDIAC CATHETERIZATION: DATE OF PROCEDURE: 09/23/16 - ROOM #447 PROCEDURE: Left cardiac catheterization, selective coronary angiography, left ventriculography. HISTORY OF PRESENT ILLNESS: The patient is a 66-year-old female patient with 50 years of tobacco consumption history and she is still an active smoker and also significant history of hyperlipidemia and triglyceridemia who presented to the hospital with symptoms of chest pain and left arm pain. She was ruled out for myocardial infarction by negative troponins. In the emergency room, had a heart rate of about 100, she had significant [address] depressions in leads II, III, and aVF and also laterally V5 and V6, but more prominent inferiorly. Once her heart rate slowed down, she normalized her EKG abnormalities. She continues to have symptoms of chest pain during her hospitalization. She had a nuclear Myoview stress test Lexiscan that showed no overt ischemia, although her transient ischemic dilation ratio was significantly abnormal. Because of her symptoms of chest pain that is ongoing, significant EKG abnormalities, abnormal TID ratio, she was further referred for a cardiac catheterization to evaluate her coronary anatomy. DESCRIPTION OF PROCEDURE: After informed written consent had been obtained, the patient was brought into the cardiac catheterization lab where the right femoral region was prepped and draped in the usual sterile fashion. 1% Xylocaine was used for local anesthesia. Next, the right femoral artery was entered and 6-[place] Zealander sheath placed into the right femoral artery. Through the right femoral arterial sheath, a 6-[place] JL4 catheter was advanced over the arch of the aorta, left coronary engaged, and left coronary arteriography performed. This catheter was removed and a 6-[place] JR4 catheter was advanced over the arch of the aorta, right coronary engaged, and right coronary arteriography performed. This catheter was removed and a 6-[place] pigtail catheter was advanced over the arch of the aorta into the left ventricle where left ventriculography was performed. This catheter was removed. At this point, I have asked Dr. Myles from the interventional cardiology services to review the findings. Decision was made to proceed for further evaluation of the proximal right coronary artery stenosis with FFR (fractional flow reserve). The FFR was abnormal with a value of 0.77. Based on this, further angioplasty and stenting of the right coronary artery was done by Dr. Myles. Please refer to a separate report for that. HEMODYNAMICS: The aortic pressure is 137/64 mmHg, left ventricle is 142 with an LVEDP of 8 mmHg. ANGIOGRAPHIC RESULTS: Left main coronary artery. The left main coronary artery was a good caliber vessel. It gave rise to left anterior descending artery and circumflex coronary artery. The left main was free of any significant disease. Left anterior descending artery. The left anterior descending artery was a good caliber vessel. It did reach and wrap around the apex of the left ventricle and was free of any significant disease. Circumflex coronary artery. The circumflex coronary artery was a good caliber vessel and was free of any significant disease. Right coronary artery. The right coronary artery was a fair caliber vessel. In the proximal segment, there is a stenosis appears to be 80% stenosis with normal JARRET-3 flow. Left ventriculography. Left ventriculography was performed in the standard LYNN projection. It showed a normal left ventricular systolic function and wall motion with an EF of 55%. CONCLUSION: 1. 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 2. Normal left ventricular systolic function and wall motion with an EF of 55%. 3. Please refer a separate report by Dr. Myles for further FFR and subsequent angioplasty and stenting of the proximal right coronary artery. CC: Dr. Casillas, Hospitalist Service, Dr. Trujillo * [id number]/[facility] #: [id number] MTDEduarda
[2016-09-24] MEDS: Heparin VIAL(*) 5000 UNITS/ML VIAL (FIVE THOUSAND) SUBCUT SCH ×3 (05:41→21:29)
[2016-09-24 06:00] LABS: Hematocrit 36 % (35-47); Hemoglobin 11.7 g/dl (12.0-16.0); Mean Corpuscular HGB Conc 33 g/dl (31-36); Mean Corpuscular Hemoglobin 30 pg (27-31); Mean Corpuscular Volume 90 fL (80-97); Mean Platelet Volume 8 um3 (7.4-10.4); Red Blood Count 3.97 10^6/ul (4.0-5.4); Red Cell Distribution Width 14 % (10.5-15); White Blood Count 13.3 10^3/ul (3.5-10.8)
[2016-09-24 06:11] LABS: Albumin 3.3 g/dL (3.2-5.2); BUN/Creatinine Ratio 17.2 (8-20); Calcium 8.4 mg/dL (8.6-10.3); EGFR African American 119.4 (>60); EGFR Non-African American 92.8 (>60); Globulin 2.7 g/dL (2-4); HDL Cholesterol 47.4 mg/dL; Potassium 3.7 mmol/L (3.5-5.0); Total Bilirubin 0.4 mg/dL (0.2-1.0)
[2016-09-24] MEDS: predniSONE TAB* 20 MG PO SCH (08:27)
[2016-09-24] MEDS: Benzonatate CAP* 100 MG PO SCH (08:27)
[2016-09-24] MEDS: Aspirin Low Dose CHEW TAB* 81 MG PO SCH (08:27)
[2016-09-24] MEDS: Ticagrelor* 90 MG TAB PO SCH ×2 (08:28→21:29)
[2016-09-24] MEDS: clonazePAM TAB(*) 1 MG PO SCH ×2 (08:28→21:29)
[2016-09-24] MEDS: Citalopram TAB* 40 MG PO SCH (08:28)
--- NOTE | 2016-09-24 09:17 | PN ---
Subjective Date of Service: 09/24/16 Interval History: Pt is feeling much better. She states the constant pain she was having under her L breast has completely resolved. She does have discomfort in her chest when coughing but she notes she is coughing much less. She states she has not had any dysuria, increased frequency or urgency of urination. Objective Active Medications: Albuterol/Ipratropium (Duoneb (Albuterol 2.5 Mg/Ipratropium 0.5 Mg)) 1 neb INH Q4H PRN PRN Reason: SOB/WHEEZING Last Admin: 09/23/16 09:17 Dose: 1 neb Aspirin (Aspirin Low Dose Tab*) 81 mg PO DAILY [facility] Last Admin: 09/24/16 08:27 Dose: 81 mg Atorvastatin Calcium (Lipitor*) 80 mg PO 2100 [facility] Last Admin: 09/23/16 20:04 Dose: 80 mg Benzonatate (Tessalon Cap*) 200 mg PO TID [facility] Last Admin: 09/24/16 08:27 Dose: 200 mg Citalopram Hydrobromide (Celexa Tab*) 40 mg PO DAILY [facility] Last Admin: 09/24/16 08:28 Dose: 40 mg Clonazepam (Klonopin Tab(*)) 1 mg PO BID [facility] Last Admin: 09/24/16 08:28 Dose: 1 mg Cyclobenzaprine HCl (Flexeril Tab*) 5 mg PO BEDTIME PRN PRN Reason: SPASMS - MUSCLE Last Admin: 09/22/16 22:50 Dose: 5 mg Dicyclomine HCl (Bentyl Cap*) 10 mg PO QID PRN PRN Reason: cramping/bloating Fentanyl Citrate (Fentanyl*) 12.5 mcg IV Q2H PRN PRN Reason: PAIN Last Admin: 09/23/16 16:30 Dose: 12.5 mcg Heparin Sodium (Porcine) (Heparin Vial(*)) 5,000 units SUBCUT Q8HR [facility] Last Admin: 09/24/16 05:41 Dose: 5,000 units Sodium Chloride (Ns 0.45% 1000 Ml Bag*) 1,000 mls @ 60 mls/hr IV .PER RATE [facility] Levofloxacin/Dextrose (Levaquin 500 Mg Ivpremix(*)) 500 mg in 100 mls @ 100 mls /hr IVPB Q24H [facility] Last Admin: 09/23/16 19:58 Dose: 100 mls/hr Nitroglycerin (Nitroglycerin Tab 0.4 Mg*) 0.4 mg SL Q5M PRN PRN Reason: ANGINA Prednisone (Deltasone Tab*) 40 mg PO DAILY [facility] Last Admin: 09/24/16 08:27 Dose: 40 mg Ticagrelor (Brilinta*) 90 mg PO BID [facility] Last Admin: 09/24/16 08:28 Dose: 90 mg Zolpidem Tartrate (Ambien Tab*) 5 mg PO BEDTIME PRN PRN Reason: INSOMNIA Last Admin: 09/23/16 21:51 Dose: 5 mg Vital Signs 09/23/16 09/23/16 09/23/16 09:12 09:13 11:36 Temperature Pulse Rate Respiratory 18 18 Rate Blood Pressure 119/64 (mmHg) O2 Sat by Pulse Oximetry 09/23/16 09/23/16 09/23/16 11:38 11:46 12:00 Temperature 97.6 F Pulse Rate 74 77 Respiratory 21 22 21 Rate Blood Pressure 119/84 131/67 (mmHg) O2 Sat by Pulse 96 98 Oximetry 09/23/16 09/23/16 09/23/16 12:15 12:30 12:47 Temperature Pulse Rate 82 81 79 Respiratory 16 18 18 Rate Blood Pressure 130/71 134/73 121/61 (mmHg) O2 Sat by Pulse 99 97 99 Oximetry 09/23/16 09/23/16 09/23/16 13:00 13:07 13:15 Temperature 97.4 F Pulse Rate 79 79 Respiratory 20 21 Rate Blood Pressure 125/64 136/72 (mmHg) O2 Sat by Pulse 99 99 Oximetry 09/23/16 09/23/16 09/23/16 13:30 13:45 14:00 Temperature Pulse Rate 79 77 75 Respiratory 19 19 24 Rate Blood Pressure 124/72 167/79 128/67 (mmHg) O2 Sat by Pulse 99 99 96 Oximetry 09/23/16 09/23/16 09/23/16 14:30 15:00 15:52 Temperature Pulse Rate 72 71 Respiratory 21 23 20 Rate Blood Pressure 128/65 121/67 (mmHg) O2 Sat by Pulse 94 95 93 Oximetry 09/23/16 09/23/16 09/23/16 16:00 16:07 16:30 Temperature 97.3 F Pulse Rate 70 Respiratory 20 24 Rate Blood Pressure 104/66 (mmHg) O2 Sat by Pulse 94 Oximetry 09/23/16 09/23/16 09/23/16 17:00 18:00 19:00 Temperature Pulse Rate 74 92 Respiratory 21 18 26 Rate Blood Pressure 124/58 107/51 (mmHg) O2 Sat by Pulse 95 98 Oximetry 09/23/16 09/23/16 09/23/16 20:00 21:00 22:00 Temperature 98.5 F Pulse Rate 78 83 Respiratory 24 27 20 Rate Blood Pressure 113/68 101/55 (mmHg) O2 Sat by Pulse 97 95 Oximetry 09/23/16 09/23/16 09/23/16 22:34 22:36 22:45 Temperature Pulse Rate 80 80 Respiratory 22 23 Rate Blood Pressure 100/51 (mmHg) O2 Sat by Pulse 94 94 Oximetry 09/23/16 09/24/16 09/24/16 23:00 00:00 00:13 Temperature 98.3 F Pulse Rate 80 82 82 Respiratory 23 24 28 Rate Blood Pressure 99/54 113/63 (mmHg) O2 Sat by Pulse 94 95 95 Oximetry 09/24/16 09/24/16 09/24/16 01:00 02:00 03:00 Temperature Pulse Rate 74 73 Respiratory 21 21 21 Rate Blood Pressure 107/49 99/47 (mmHg) O2 Sat by Pulse 94 92 Oximetry 09/24/16 09/24/16 09/24/16 03:03 04:00 05:00 Temperature 98.0 F Pulse Rate 79 70 72 Respiratory 20 25 20 Rate Blood Pressure 124/71 113/70 109/65 (mmHg) O2 Sat by Pulse 96 94 94 Oximetry 09/24/16 09/24/16 09/24/16 06:00 07:00 08:00 Temperature 98.4 F Pulse Rate 71 68 Respiratory 19 23 Rate Blood Pressure 141/67 135/64 (mmHg) O2 Sat by Pulse 97 92 Oximetry Oxygen Devices in Use Now: None Appearance: Middle aged female sitting up in bed, NAD Eyes: No Scleral Icterus Ears/Nose/Mouth/Throat: Mucous Membranes Moist Respiratory: Symmetrical Chest Expansion and Respiratory Effort, Clear to Auscultation - diminished breath sounds in all lung luu Cardiovascular: NL Sounds; No Murmurs; No JVD, RRR, No Edema Abdominal: NL Sounds; No Tenderness; No Distention Extremities: No Clubbing, Cyanosis Skin: No Rash or Ulcers, No Nodules or Sclerosis Neurological: Alert and Oriented x 3 Result Diagrams: 09/24/16 05:39 09/24/16 05:39 Microbiology and Other Data: Microbiology 09/21/16 21:44 Urine Culture - Preliminary Urine Klebsiella Pneumoniae Assess/Plan/Problems-Billing Ms Rodriguez is a 66 yo F who has a h/o tobacco abuse who presented to the ER with c/o chest pain, cough and SOB and was admitted for evaluation of the chest pain and for treatment of a probable bronchitis. - Patient Problems (1) Chest pain Current Visit: Yes Status: Acute Code(s): R07.9 - CHEST PAIN, UNSPECIFIED SNOMED Code(s): 06839217 Comment: The patient was found to have an 80% proximal RCA lesion. She is s/ p CARLYN placement yestserday. She will stay on dual antiplatelet therapy with ASA and brilinta. Will continue lipitor 80mg qHS. (2) Bronchitis Current Visit: Yes Status: Acute Code(s): J40 - BRONCHITIS, NOT SPECIFIED ACUTE OR CHRONIC SNOMED Code(s): 20986722 Comment: THe patient's coughing is much improved today. Will start to taper the prednisone. I have changed from azithromycin to levaquin as her urine grew K pneumoniae. She will have 6 more days of therapy (to treat possible UTI) but this will cover the bronchitis. Change tessalon to prn. (3) UTI due to Klebsiella species Current Visit: Yes Status: Acute Code(s): N39.0 - URINARY TRACT INFECTION, SITE NOT SPECIFIED; B96.1 - KLEBSIELLA PNEUMONIAE THE CAUSE OF DISEASES CLASSD [facility] SNOMED Code(s): 666581660404294 Comment: The patient had a urine specimen obtained on admission. This grew K pneumoniae. She denies any UTI symptoms however with an elevated WBC count ( possibly up from bronchitis/steroids but can not rule it out being elevated from UTI) and a new stent will keep the patient overnight 1 more night for IV Abx to help prevent the newly placed stent from becoming infected. (4) Tobacco abuse Current Visit: Yes Status: Acute Code(s): Z72.0 - TOBACCO USE SNOMED Code( s): 792474500 Comment: Encourage smoking cessation. (5) DVT prophylaxis Current Visit: Yes Status: Acute Code(s): ONL7220 - SNOMED Code(s): 118628882 Comment: SQ heparin (6) Full code status Current Visit: Yes Status: Acute Code(s): Z78.9 - OTHER SPECIFIED HEALTH STATUS SNOMED Code(s): 179430382
[2016-09-24] MEDS ORDERED: Benzonatate CAP* 100 MG PO PRN (09:19)
[2016-09-24] MEDS: Levofloxacin 500 MG IVPREMIX(* 500 MG/100 ML BAG IVPB SCH (21:28)
[2016-09-24] MEDS: Atorvastatin* 80 MG TAB PO SCH (21:29)
[2016-09-24] MEDS: Zolpidem TAB* 5 MG PO PRN (23:06)
[2016-09-25 05:00] LABS: Hematocrit 38 % (35-47); Hemoglobin 12.6 g/dl (12.0-16.0); Mean Corpuscular HGB Conc 33 g/dl (31-36); Mean Corpuscular Hemoglobin 30 pg (27-31); Mean Corpuscular Volume 89 fL (80-97); Mean Platelet Volume 8 um3 (7.4-10.4); Red Blood Count 4.25 10^6/ul (4.0-5.4); Red Cell Distribution Width 13 % (10.5-15); White Blood Count 12.5 10^3/ul (3.5-10.8)
[2016-09-25] MEDS: Heparin VIAL(*) 5000 UNITS/ML VIAL (FIVE THOUSAND) SUBCUT SCH ×2 (05:24→13:13)
[2016-09-25] MEDS ORDERED: predniSONE TAB* 20 MG PO SCH (09:00)
[2016-09-25] MEDS: clonazePAM TAB(*) 1 MG PO SCH (09:27)
[2016-09-25] MEDS: Aspirin Low Dose CHEW TAB* 81 MG PO SCH (09:27)
[2016-09-25] MEDS: Ticagrelor* 90 MG TAB PO SCH (09:28)
[2016-09-25] MEDS: Citalopram TAB* 40 MG PO SCH (09:28)
[2016-09-25 11:49] VITALS: BP 107/64
--- NOTE | 2016-09-25 14:32 | DCNOTE ---
Subjective Date of Service: 09/25/16 Interval History: Cough much better. No chest pain. No new c/o. Very anxious to go home. Objective Active Medications: Albuterol/Ipratropium (Duoneb (Albuterol 2.5 Mg/Ipratropium 0.5 Mg)) 1 neb INH Q4H PRN PRN Reason: SOB/WHEEZING Last Admin: 09/23/16 09:17 Dose: 1 neb Aspirin (Aspirin Low Dose Tab*) 81 mg PO DAILY [facility] Last Admin: 09/25/16 09:27 Dose: 81 mg Atorvastatin Calcium (Lipitor*) 80 mg PO 2100 [facility] Last Admin: 09/24/16 21:29 Dose: 80 mg Benzonatate (Tessalon Cap*) 200 mg PO TID PRN PRN Reason: COUGH Last Admin: 09/24/16 23:06 Dose: 200 mg Citalopram Hydrobromide (Celexa Tab*) 40 mg PO DAILY [facility] Last Admin: 09/25/16 09:28 Dose: 40 mg Clonazepam (Klonopin Tab(*)) 1 mg PO BID [facility] Last Admin: 09/25/16 09:27 Dose: 1 mg Cyclobenzaprine HCl (Flexeril Tab*) 5 mg PO BEDTIME PRN PRN Reason: SPASMS - MUSCLE Last Admin: 09/22/16 22:50 Dose: 5 mg Dicyclomine HCl (Bentyl Cap*) 10 mg PO QID PRN PRN Reason: cramping/bloating Fentanyl Citrate (Fentanyl*) 12.5 mcg IV Q2H PRN PRN Reason: PAIN Last Admin: 09/23/16 16:30 Dose: 12.5 mcg Heparin Sodium (Porcine) (Heparin Vial(*)) 5,000 units SUBCUT Q8HR [facility] Last Admin: 09/25/16 13:13 Dose: Not Given Levofloxacin/Dextrose (Levaquin 500 Mg Ivpremix(*)) 500 mg in 100 mls @ 100 mls /hr IVPB Q24H [facility] Last Admin: 09/24/16 21:28 Dose: 100 mls/hr Nitroglycerin (Nitroglycerin Tab 0.4 Mg*) 0.4 mg SL Q5M PRN PRN Reason: ANGINA Prednisone (Deltasone Tab*) 30 mg PO DAILY [facility] Last Admin: 09/25/16 09:26 Dose: 30 mg Ticagrelor (Brilinta*) 90 mg PO BID [facility] Last Admin: 09/25/16 09:28 Dose: 90 mg Zolpidem Tartrate (Ambien Tab*) 5 mg PO BEDTIME PRN PRN Reason: INSOMNIA Last Admin: 09/24/16 23:06 Dose: 5 mg Vital Signs 09/24/16 09/24/16 09/24/16 15:32 17:55 20:00 Temperature 99.6 F 97.7 F Pulse Rate 68 Respiratory 16 18 Rate Blood Pressure 116/58 (mmHg) O2 Sat by Pulse 97 Oximetry 09/24/16 09/24/16 09/24/16 20:18 21:29 23:29 Temperature 99.1 F Pulse Rate 66 Respiratory 18 18 14 Rate Blood Pressure 110/59 (mmHg) O2 Sat by Pulse 96 Oximetry 09/24/16 09/25/16 09/25/16 23:45 04:17 06:45 Temperature 97.8 F 97.7 F Pulse Rate 67 64 Respiratory 16 16 16 Rate Blood Pressure 112/73 113/59 (mmHg) O2 Sat by Pulse 98 97 Oximetry 09/25/16 09/25/16 09/25/16 07:49 09:27 11:29 Temperature 97.9 F 97.5 F Pulse Rate 70 67 Respiratory 16 14 16 Rate Blood Pressure 116/65 107/64 (mmHg) O2 Sat by Pulse 97 97 Oximetry Oxygen Devices in Use Now: None Appearance: Alert, sitting up in bed. In good spirits. Looks comfortable. Eyes: No Scleral Icterus Ears/Nose/Mouth/Throat: Clear Oropharnyx, Mucous Membranes Moist Neck: NL Appearance and Movements; NL JVP, No Thyroid Enlargement, Masses Respiratory: Symmetrical Chest Expansion and Respiratory Effort, Clear to Auscultation, Clear to Percussion Cardiovascular: NL Sounds; No Murmurs; No JVD, RRR, No Edema, - Extremities: No Edema, No Clubbing, Cyanosis, - Skin: No Rash or Ulcers, No Nodules or Sclerosis, - Neurological: Alert and Oriented x 3, NL Sensation Result Diagrams: 09/25/16 04:31 09/24/16 05:39 Microbiology and Other Data: Microbiology 09/21/16 21:44 Urine Culture - Preliminary Urine Klebsiella Pneumoniae Assess/Plan/Problems-Billing Ms Rodriguez is a 66 yo F who has a h/o tobacco abuse who presented to the ER with c/o chest pain, cough and SOB and was admitted for evaluation of the chest pain and for treatment of a probable bronchitis. - Patient Problems (1) Coronary artery disease Current Visit: Yes Status: Acute Code(s): I25.10 - ATHSCL HEART DISEASE OF [place] CORONARY ARTERY W/O ANG PCTRS SNOMED Code(s): 94779139 Comment: S/P CARLYN per Dr. Myles. I emphasized the need to be very rigorous about both the ticagrelor and ASA doses. Continue atorvastatin. Fup Dr. Monreal (2) UTI due to Klebsiella species Current Visit: Yes Status: Acute Code(s): N39.0 - URINARY TRACT INFECTION, SITE NOT SPECIFIED; B96.1 - KLEBSIELLA PNEUMONIAE THE CAUSE OF DISEASES CLASSD [facility] SNOMED Code(s): 002111024346263 Comment: The patient had a urine specimen obtained on admission. This grew K pneumoniae. She denies any UTI symptoms. The five days of outpt levofloxacin for her bronchitis will cover her UTI as well. (3) Bronchitis Current Visit: Yes Status: Acute Code(s): J40 - BRONCHITIS, NOT SPECIFIED ACUTE OR CHRONIC SNOMED Code(s): 23529712 Comment: Continue to taper the prednisone. 5 days of levaquin as outpt. (4) Tobacco abuse Current Visit: Yes Status: Acute Code(s): Z72.0 - TOBACCO USE SNOMED Code( s): 609080343 Comment: Pt advised to quit smoking and avoid second hand smoke. Status and Disposition: Discharge now. Fup Cassandra Sanders.
--- NOTE | 2016-09-25 21:15 | DS ---
DISCHARGE SUMMARY: DATE OF ADMISSION: 09/22/16 DATE OF DISCHARGE: 09/25/16 HISTORY OF PRESENT ILLNESS: This 66-year-old woman presented with cough and chest tightness and pain radiating to the neck and left arm. The history is detailed in the admission note. She presented to the emergency room with these complaints. She had some wheezing. She received IV fluids, Solu-Medrol, bronchodilators. The chest pain was considered suspicious for acute coronary syndrome. She was monitored on telemetry. All her troponins were within normal limits. She had a transthoracic echocardiogram, this showed normal left ventricular chamber size , ejection fraction of 55% to 60%. There was evidence of diastolic dysfunction. On 09/22/16, she had a nuclear cardiac stress test. This showed elevation of the transient ischemic dilatation ratio suggesting multivessel coronary artery disease. On 09/23/16, she underwent cardiac catheterization. There was 80% stenosis of the proximal right coronary artery. Dr. Myles inserted a drug-eluting stent. She was started on ticagrelor as well as aspirin, atorvastatin was also given to her. She did well. She is on the tapering dose of prednisone. She will continue on aspirin, ticagrelor and atorvastatin. She was encouraged to stop smoking. FINAL DIAGNOSES: 1. Coronary artery disease. 2. Urinary tract infection due to Klebsiella. 3. Bronchitis. 4. Tobacco abuse. DISCHARGE MEDICATIONS: 1. Albuterol inhaler 1 puff every 4 hours p.r.n. 2. Benzonatate 100 mg t.i.d. 3. Aspirin 81 mg daily. 4. Atorvastatin 80 mg daily. 5. Ticagrelor 90 mg b.i.d. 6. Levofloxacin 500 mg h.s. for 5 days. 7. Prednisone 10 mg, to taper from 30 mg to 10 mg to 0 mg over 3 days. 8. Dicyclomine 10 to 20 mg 4 times a day p.r.n. 9. Trazodone 50 to 100 mg h.s. p.r.n. 10. Zolpidem 10 mg h.s. p.r.n. 11. Sumatriptan 6 mg subcu as prescribed. 12. Citalopram 40 mg daily. 13. Clonazepam 1 mg b.i.d. 14. Cyclobenzaprine 5 to 10 mg h.s. p.r.n. CC: Dr. Trujillo; Dr. Myles * [id number]/[facility] #: [id number] [facility] CENT[facility]
== END 2016-09-25 15:25 | disposition home or self-care (01) | DRG 247 ==
LOC: ED 16:35 → MEDTELE 19:57 → OBSVTOIN 09-22 14:00 → ICU 09-23 11:46 → MEDTELE 09-24 16:09
PROVIDERS: ADMIT Hospitalist; ATTEND Internal Medicine
PROC: 4A023N7 Measurement of Cardiac Sampling and Pressure, Left Heart, Percutaneous Approach (ICD-10-PCS; principal; 2016-09-22)
PROC: 027034Z Dilation of Coronary Artery, One Artery with Drug-eluting Intraluminal Device, Percutaneous Approach (ICD-10-PCS; 2016-09-22)
PROC: B2111ZZ Fluoroscopy of Multiple Coronary Arteries using Low Osmolar Contrast (ICD-10-PCS; 2016-09-22)
PROC: B2151ZZ Fluoroscopy of Left Heart using Low Osmolar Contrast (ICD-10-PCS; 2016-09-22)
PROC: 4A033BC Measurement of Arterial Pressure, Coronary, Percutaneous Approach (ICD-10-PCS; 2016-09-22)
PROC: 4A12XM4 Monitoring of Cardiac Stress, External Approach (ICD-10-PCS; 2016-09-22)
DX: I25.10 Atherosclerotic heart disease of native coronary artery without angina pectoris (principal); E87.1 Hypo-osmolality and hyponatremia; N39.0 Urinary tract infection, site not specified; J44.1 Chronic obstructive pulmonary disease with (acute) exacerbation; F17.200 Nicotine dependence, unspecified, uncomplicated; J40 Bronchitis, not specified as acute or chronic; B96.1 Klebsiella pneumoniae [K. pneumoniae] as the cause of diseases classified elsewhere; Z79.82 Long term (current) use of aspirin; F41.9 Anxiety disorder, unspecified; F32.9 Major depressive disorder, single episode, unspecified; G43.909 Migraine, unspecified, not intractable, without status migrainosus; Z98.51 Tubal ligation status; Z88.8 Allergy status to other drugs, medicaments and biological substances; Z82.49 Family history of ischemic heart disease and other diseases of the circulatory system; Z80.1 Family history of malignant neoplasm of trachea, bronchus and lung; Z83.6 Family history of other diseases of the respiratory system; G47.00 Insomnia, unspecified; E87.6 Hypokalemia; Z86.718 Personal history of other venous thrombosis and embolism; Z86.711 Personal history of pulmonary embolism
CPT/HCPCS: 36415; 71020; 78452; 80048; 80053; 80061; 81003; 81015; 83605; 83735; 83880; 84484; 85025; 85027; 85652; 86140; 87040; 87077; 87086; 87186; 93005; 93017; 93306; 93458; 94640; 94760; 99406; A9270-GY; A9502; C1725; C1876; C1887; C9600-RC; J0153; J1644; J1956; J2001; J2250; J2785; J2930; J3010; J7512

== ENCOUNTER 2016-10-27 10:55 | Emergency (ER) | payer BC, MEDICARE ==
[2016-10-27] MEDS ORDERED: NS 0.9% 1000 ML* 1,000 ML IV SCH (11:45)
[2016-10-27 12:01] LABS: Hematocrit 36 % (35-47); Hemoglobin 11.7 g/dl (12.0-16.0); Mean Corpuscular HGB Conc 33 g/dl (31-36); Mean Corpuscular Hemoglobin 29 pg (27-31); Mean Corpuscular Volume 89 fL (80-97); Mean Platelet Volume 8 um3 (7.4-10.4); Red Blood Count 3.99 10^6/ul (4.0-5.4); Red Cell Distribution Width 14 % (10.5-15); White Blood Count 8.3 10^3/ul (3.5-10.8)
[2016-10-27 12:18] LABS: Albumin 3.6 g/dL (3.2-5.2); BUN/Creatinine Ratio 17.9 (8-20); C Reactive Protein 3.18 mg/L (< 5.00); Calcium 8.6 mg/dL (8.6-10.3); EGFR African American 139.3 (>60); EGFR Non-African American 108.3 (>60); Globulin 2.8 g/dL (2-4); Magnesium 1.9 mg/dL (1.9-2.7); Potassium 3.8 mmol/L (3.5-5.0); Total Bilirubin 0.4 mg/dL (0.2-1.0); Total Protein 6.4 g/dL (6.4-8.9)
--- NOTE | 2016-10-27 12:51 | RAD ---
INDICATION: Chest pain COMPARISON: Similar chest x-ray dated September 21, 2016 TECHNIQUE: Single AP portable view of the chest was obtained. FINDINGS: Image quality is compromised due to the relative inferiority of a portable chest x-ray. The heart and mediastinum exhibit normal size and contour. In the AP projection the lungs appear hyperaerated similar to the previous chest x-ray. There is no focal mass or consolidation. There is no evidence of a large pleural effusion. Visualized bones are normal for the patient's age. IMPRESSION: Stable chronic appearance of obstructive pulmonary disease unchanged from the previous chest x-ray.
[2016-10-27 12:55] LABS: TSH (Thyroid Stimulating Horm) 5.16 mcIU/mL (0.34-5.60)
[2016-10-27 13:17] LABS: Urine Bacteria Absent (Absent); Urine Bilirubin Negative (Negative); Urine Glucose Negative (Negative); Urine Nitrite Negative (Negative)
[2016-10-27 15:08] VITALS: BP 106/55
--- NOTE | 2016-10-27 15:15 | ED ---
Dana Chapin Edward, scribed for Enmanuel Landon MD on 10/27/16 at 1131 . HPI Chest Pain - HPI Summary HPI Summary: 66 y/o female BIBA c/o chest pain that started at 10:15 this morning. Pain is characterized as a sharp, stabbing pain in the left chest with no radiation. The pain started while the patient was on an exercise bike at [facility] and got "sharper and sharper" as she exercised. Pain was rated at a 5/10 initially, reduced to a 4/10 by NTG and aspirin administered by EMS. No other alleviating factors. Pain is aggravated when the patient pushes down on the painful area. Patient states the pain is at a 2-3/10 currently. Associated sx: HTN (per Cardiac Rehab nurse), tachycardia (per EMS), diarrhea yesterday (IBS flareup), back pain, ecchymosis in upper right calf. Denies a cough, any injury, nausea, diaphoresis, SOB, extremity pain and wheezing. PMHx stents (1 month ago), IBS, COPD (beginning stages), bronchitis. Patient is a former smoker who quit smoking 1 month ago. - History of Current Complaint Chief Complaint: EDChestPainROMI Time Seen by Provider: 10/27/16 11:25 Hx Obtained From: Patient, EMS Onset/Duration: Started Hours Ago - 10:15 this morning, Still Present Timing: Constant Initial Severity: Moderate Current Severity: Mild Pain Intensity: 5 Pain Scale Used: 0-10 Numeric Chest Pain Location: Left Lateral Chest Pain Radiates: No Character: Sharp/Stabbing Aggravating Factor(s): Other: - Putting pressure on it Alleviating Factor(s): Nothing Associated Signs and Symptoms: Positive: Chest Pain, Back Pain, Other: - Diarrhea yesterday (IBS flareup). Ecchymosis in upper right calf. No pain in extremities. Negative: Shortness of Breath, Diaphoresis, Nausea, Cough, Wheezing - Additional Pertinent History Primary Care Physician: [id number] - Allergy/Home Medications Allergies/Adverse Reactions: Allergies Allergy/AdvReac Type Severity Reaction Status Date / Time Amoxicillin [From Augmentin] Allergy GI Upset Verified 09/21/16 16:41 Aripiprazole [From Abilify] Allergy GI Upset Verified 09/21/16 16:41 Clavulanic Acid Allergy GI Upset Verified 09/21/16 16:41 [From Augmentin] Desvenlafaxine [From Pristiq] Allergy GI Upset Verified 09/21/16 16:41 Lactose Intolerance (GI) Allergy GI Upset Verified 09/21/16 16:41 Mirtazapine [From Remeron] Allergy Unknown Verified 09/21/16 16:41 Reaction Details PMH/Surg Hx/FS Hx/Imm Hx Previously Healthy: No Endocrine/Hematology History: Denies: Hx Diabetes Cardiovascular History: Reports: Hx Deep Vein Thrombosis Denies: Hx Angina, Hx Coronary Artery Disease, Hx Hypercholesterolemia, Hx Hypertension, Hx Myocardial Infarction, Hx Valvular Heart Disease Respiratory History: Reports: Hx Chronic Obstructive Pulmonary Disease (COPD), Hx Pulmonary Embolism, Other Respiratory Problems/Disorders - hx bronchitis Denies: Hx Asthma GI History: Reports: Hx Diverticulosis Sensory History: Reports: Hx Contacts or Glasses Denies: Hx Hearing Aid Opthamlomology History: Reports: Hx Contacts or Glasses Neurological History: Reports: Hx Migraine Comment Only: Other Neuro Impairments/Disorders - insomnia Psychiatric History: Reports: Hx Anxiety, Hx Depression - Surgical History Surgery Procedure, Year, and Place: tubal ligation, appendectomy - Immunization History Date of Tetanus Vaccine: unknown Date of Influenza Vaccine: none Infectious Disease History: No Infectious Disease History: Denies: Traveled Outside the [place] in Last 30 Days - Family History Known Family History: Positive: Respiratory Disease - COPD (Emphysema) - Social History Occupation: Retired Lives: With Family Alcohol Use: None Substance Use Type: Reports: None Hx Tobacco Use: Yes Smoking Status (MU): Current Some Day Smoker Type: Cigarettes Amount Used/How Often: 1/4 packs a day Have You Smoked in the Last Year: Yes Review of Systems Constitutional: Negative Negative: Chills, Skin Diaphoresis Eyes: Negative ENT: Negative Positive: Chest Pain - Left side Respiratory: Negative Positive: Other - No wheezing. Negative: Shortness Of Breath, Cough Positive: Diarrhea - Yesterday (IBS flareup). Negative: Nausea Genitourinary: Negative Musculoskeletal: Negative Positive: Other - No extremity pain Positive: Bruising - Upper right calf Neurological: Negative Psychological: Normal All Other Systems Reviewed And Are Negative: Yes Physical Exam Triage Information Reviewed: Yes Vital Signs On Initial Exam: Initial Vitals Temp Pulse Resp BP Pulse Ox 98.6 F 73 20 105/67 95 06/22/17 11:01 10/27/16 11:01 10/27/16 11:01 10/27/16 11:01 10/27/16 11:01 Vital Signs Reviewed: Yes Appearance: Positive: Well-Appearing, No Pain Distress, Well-Nourished Skin: Positive: Warm, Skin Color Reflects Adequate Perfusion, Dry, Other - 4 cm diameter ecchymosis in upper right calf Head/Face: Positive: Normal Head/Face Inspection Eyes: Positive: Normal, EOMI, EVELYN ENT: Positive: Normal ENT inspection Neck: Positive: Supple, Nontender Respiratory/Lung Sounds: Positive: Clear to Auscultation, Breath Sounds Present Cardiovascular: Positive: RRR Abdomen Description: Positive: Nontender, Soft Bowel Sounds: Positive: Present Musculoskeletal: Positive: Strength/ROM Intact, Pain @ - TTP in L anterior chest (same pain she came in with) Neurological: Positive: Normal, Sensory/Motor Intact, Alert, Oriented to Person Place, Time Psychiatric: Positive: Normal, Affect/Mood Appropriate - [place] Coma Scale Coma Scale Total: 15 Diagnostics - Vital Signs Vital Signs Temp Pulse Resp BP Pulse Ox 10/27/16 11:09 73 15 98 10/27/16 11:07 98.6 F 73 15 103/56 98 10/27/16 11:01 98.6 F 73 20 105/67 95 - Laboratory Lab Results: Lab Results 10/27/16 10/27/16 10/27/16 Range/Units 11:53 11:53 11:53 WBC 8.3 (3.5-10.8) 10^3/ul RBC 3.99 L (4.0-5.4) 10^6/ul Hgb 11.7 L (12.0-16.0) g/dl Hct 36 (35-47) % MCV 89 (80-97) fL MCH 29 (27-31) pg MCHC 33 (31-36) g/dl RDW 14 (10.5-15) % Plt Count 292 (150-450) 10^3/ul MPV 8 (7.4-10.4) um3 Neut % (Auto) 69.3 (38-83) % Lymph % (Auto) 21.0 L (25-47) % Dale % (Auto) 7.6 (1-9) % Eos % (Auto) 1.6 (0-6) % Baso % (Auto) 0.5 (0-2) % Absolute Neuts (auto) 5.8 (1.5-7.7) 10^3/ul Absolute Lymphs (auto) 1.7 (1.0-4.8) 10^3/ul Absolute Monos (auto) 0.6 (0-0.8) 10^3/ul Absolute Eos (auto) 0.1 (0-0.6) 10^3/ul Absolute Basos (auto) 0 (0-0.2) 10^3/ul Absolute Nucleated RBC 0 10^3/ul Nucleated RBC % 0 INR (Anticoag Therapy) 0.99 (0.89-1.11) APTT 29.6 (26.0-36.3) seconds D-Dimer, Quantitative < 200 (Less Than 230) ng/mL Sodium 134 (133-145) mmol/L Potassium 3.8 (3.5-5.0) mmol/L Chloride 106 (101-111) mmol/L Carbon Dioxide 22 (22-32) mmol/L Anion Gap 6 (2-11) mmol/L BUN 10 (6-24) mg/dL Creatinine 0.56 (0.51-0.95) mg/dL Est GFR ( Amer) 139.3 (>60) Est GFR (Non-Af Amer) 108.3 (>60) BUN/Creatinine Ratio 17.9 (8-20) Glucose 94 (70-100) mg/dL Lactic Acid (0.5-2.0) mmol/L Calcium 8.6 (8.6-10.3) mg/dL Magnesium 1.9 (1.9-2.7) mg/dL Total Bilirubin 0.40 (0.2-1.0) mg/dL AST 18 (13-39) U/L ALT 19 (7-52) U/L Alkaline Phosphatase 72 (34-104) U/L Total Creatine Kinase 50 (10-223) U/L CK-MB (CK-2) 1.3 (0.6-6.3) ng/mL Troponin I 0.00 (<0.04) ng/mL C-Reactive Protein 3.18 (< 5.00) mg/L B-Natriuretic Peptide ( - 100) pg/mL Total Protein 6.4 (6.4-8.9) g/dL Albumin 3.6 (3.2-5.2) g/dL Globulin 2.8 (2-4) g/dL Albumin/Globulin Ratio 1.3 (1-3) Lipase 59 (11.0-82.0) U/L TSH 5.16 (0.34-5.60) mcIU/mL Urine Color Urine Appearance Urine pH (5-9) Ur Specific [place] (1.010-1.030) Urine Protein (Negative) Urine Ketones (Negative) Urine Blood (Negative) Urine Nitrate (Negative) Urine Bilirubin (Negative) Urine Urobilinogen (Negative) Ur Leukocyte Esterase (Negative) Urine WBC (Auto) (Absent) Urine RBC (Auto) (Absent) Ur Squamous Epith Cells (Absent) Urine Bacteria (Absent) Urine Glucose (Negative) 10/27/16 10/27/16 10/27/16 Range/Units 11:53 11:53 12:49 WBC (3.5-10.8) 10^3/ul RBC (4.0-5.4) 10^6/ul Hgb (12.0-16.0) g/dl Hct (35-47) % MCV (80-97) fL MCH (27-31) pg MCHC (31-36) g/dl RDW (10.5-15) % Plt Count (150-450) 10^3/ul MPV (7.4-10.4) um3 Neut % (Auto) (38-83) % Lymph % (Auto) (25-47) % Dale % (Auto) (1-9) % Eos % (Auto) (0-6) % Baso % (Auto) (0-2) % Absolute Neuts (auto) (1.5-7.7) 10^3/ul Absolute Lymphs (auto) (1.0-4.8) 10^3/ul Absolute Monos (auto) (0-0.8) 10^3/ul Absolute Eos (auto) (0-0.6) 10^3/ul Absolute Basos (auto) (0-0.2) 10^3/ul Absolute Nucleated RBC 10^3/ul Nucleated RBC % INR (Anticoag Therapy) (0.89-1.11) APTT (26.0-36.3) seconds D-Dimer, Quantitative (Less Than 230) ng/mL Sodium (133-145) mmol/L Potassium (3.5-5.0) mmol/L Chloride (101-111) mmol/L Carbon Dioxide (22-32) mmol/L Anion Gap (2-11) mmol/L BUN (6-24) mg/dL Creatinine (0.51-0.95) mg/dL Est GFR ( Amer) (>60) Est GFR (Non-Af Amer) (>60) BUN/Creatinine Ratio (8-20) Glucose (70-100) mg/dL Lactic Acid 0.7 (0.5-2.0) mmol/L Calcium (8.6-10.3) mg/dL Magnesium (1.9-2.7) mg/dL Total Bilirubin (0.2-1.0) mg/dL AST (13-39) U/L ALT (7-52) U/L Alkaline Phosphatase (34-104) U/L Total Creatine Kinase (10-223) U/L CK-MB (CK-2) (0.6-6.3) ng/mL Troponin I (<0.04) ng/mL C-Reactive Protein (< 5.00) mg/L B-Natriuretic Peptide 14 ( - 100) pg/mL Total Protein (6.4-8.9) g/dL Albumin (3.2-5.2) g/dL Globulin (2-4) g/dL Albumin/Globulin Ratio (1-3) Lipase (11.0-82.0) U/L TSH (0.34-5.60) mcIU/mL Urine Color Straw Urine Appearance Clear Urine pH 6.0 (5-9) Ur Specific [place] 1.006 L (1.010-1.030) Urine Protein Negative (Negative) Urine Ketones Negative (Negative) Urine Blood 1+ H (Negative) Urine Nitrate Negative (Negative) Urine Bilirubin Negative (Negative) Urine Urobilinogen Negative (Negative) Ur Leukocyte Esterase 2+ H (Negative) Urine WBC (Auto) Trace(0-5/hpf) (Absent) Urine RBC (Auto) Trace(0-2/hpf) (Absent) Ur Squamous Epith Cells Present H (Absent) Urine Bacteria Absent (Absent) Urine Glucose Negative (Negative) 06/22/17 Range/Units 14:40 WBC (3.5-10.8) 10^3/ul RBC (4.0-5.4) 10^6/ul Hgb (12.0-16.0) g/dl Hct (35-47) % MCV (80-97) fL MCH (27-31) pg MCHC (31-36) g/dl RDW (10.5-15) % Plt Count (150-450) 10^3/ul MPV (7.4-10.4) um3 Neut % (Auto) (38-83) % Lymph % (Auto) (25-47) % Dale % (Auto) (1-9) % Eos % (Auto) (0-6) % Baso % (Auto) (0-2) % Absolute Neuts (auto) (1.5-7.7) 10^3/ul Absolute Lymphs (auto) (1.0-4.8) 10^3/ul Absolute Monos (auto) (0-0.8) 10^3/ul Absolute Eos (auto) (0-0.6) 10^3/ul Absolute Basos (auto) (0-0.2) 10^3/ul Absolute Nucleated RBC 10^3/ul Nucleated RBC % INR (Anticoag Therapy) (0.89-1.11) APTT (26.0-36.3) seconds D-Dimer, Quantitative (Less Than 230) ng/mL Sodium (133-145) mmol/L Potassium (3.5-5.0) mmol/L Chloride (101-111) mmol/L Carbon Dioxide (22-32) mmol/L Anion Gap (2-11) mmol/L BUN (6-24) mg/dL Creatinine (0.51-0.95) mg/dL Est GFR ( Amer) (>60) Est GFR (Non-Af Amer) (>60) BUN/Creatinine Ratio (8-20) Glucose (70-100) mg/dL Lactic Acid (0.5-2.0) mmol/L Calcium (8.6-10.3) mg/dL Magnesium (1.9-2.7) mg/dL Total Bilirubin (0.2-1.0) mg/dL AST (13-39) U/L ALT (7-52) U/L Alkaline Phosphatase (34-104) U/L Total Creatine Kinase (10-223) U/L CK-MB (CK-2) (0.6-6.3) ng/mL Troponin I 0.00 (<0.04) ng/mL C-Reactive Protein (< 5.00) mg/L B-Natriuretic Peptide ( - 100) pg/mL Total Protein (6.4-8.9) g/dL Albumin (3.2-5.2) g/dL Globulin (2-4) g/dL Albumin/Globulin Ratio (1-3) Lipase (11.0-82.0) U/L TSH (0.34-5.60) mcIU/mL Urine Color Urine Appearance Urine pH (5-9) Ur Specific [place] (1.010-1.030) Urine Protein (Negative) Urine Ketones (Negative) Urine Blood (Negative) Urine Nitrate (Negative) Urine Bilirubin (Negative) Urine Urobilinogen (Negative) Ur Leukocyte Esterase (Negative) Urine WBC (Auto) (Absent) Urine RBC (Auto) (Absent) Ur Squamous Epith Cells (Absent) Urine Bacteria (Absent) Urine Glucose (Negative) Result Diagrams: 10/27/16 11:53 10/27/16 11:53 Lab Statement: Any lab studies that have been ordered have been reviewed, and results considered in the medical decision making process. - Radiology CHEST XRAY Xray Interpretation: No Acute Changes - Stable chronic appearance of obstructive pulmonary disease unchanged from the previous chest x-ray. Radiology Interpretation Completed By: Radiologist - EKG 1 EKG Interpretation: 11:05 - Normal Sinus @ [address] elevations, no ectopy Chest Pain Course/Dx - Course Course Of Treatment: NO CRITICAL CARE TIME. PATIENT TENDER TO PALPATION ON CHEST WHERE HER PAIN IS. DISCUSSED WITH CARDIOLOGY, DR SIMENTAL. DISCUSSED RESULTS WITH PATIENT. REPEAT TROPONIN 0.00. DISCHARGE HOME STABLE; F/U WITH DR YU; RETURN TO ED IF WORSE/QUESTIONS/CONCERNS.. Assessment/Plan: Discussed with Dr. Dariel Simental of Cardiology (14:00). - Diagnoses Provider Diagnoses: Chest pain Discharge - Discharge Plan Condition: Stable Disposition: HOME Patient Education Materials: Chest Pain (ED) Referrals: John Trujillo MD [Primary Care Provider] - Brian Yu MD [Medical Doctor] - Additional Instructions: FOLLOW UP WITH YOUR DOCTOR. RETURN TO THE EMERGENCY DEPARTMENT FOR ANY WORSENING OF YOUR CONDITION; PAIN, SHORTNESS OF BREATH, YOU FEEL ILL OR QUESTIONS OR CONCERNS. The documentation as recorded by the Dana ball Edward accurately reflects the service I personally performed and the decisions made by me, Enmaunel Landon MD.
== END 2016-10-27 15:22 | disposition home or self-care (01) ==
LOC: ED 10:55
DX: R07.9 Chest pain, unspecified (principal); M54.9 Dorsalgia, unspecified; R19.7 Diarrhea, unspecified; S80.11XA Contusion of right lower leg, initial encounter; X58.XXXA Exposure to other specified factors, initial encounter; Y93.9 Activity, unspecified; Y92.9 Unspecified place or not applicable
CPT/HCPCS: 36415; 71010; 80053; 81003; 81015; 82550; 82553; 83605; 83690; 83735; 83880; 84443; 84484; 85025; 85379; 85610; 85730; 86140; 87086; 93005; 99283

== ENCOUNTER 2016-11-15 11:41 | Emergency (ER) | payer BC, MEDICARE ==
[2016-11-15 12:36] VITALS: BP 116/53
--- NOTE | 2016-11-15 12:53 | UC ---
Mark Chapin SooYoung, scribed for Paola Baker MD on 11/15/16 at 1204 . Dizzy HPI HPI Summary: A 66 y/o F presents to [facility] [place] with c/o dizziness onset 5 to 6 days ago. Associated sx: diffuse weakness. Denies palpitations. Pert PMHx: [place] [facility] [place], D/C on 09/25/16 - 80% stenosis prox RCA -> stent per Dr. Wolfe. Last 3 weeks, increased sob, weakness, "dizziness." No cp / palpitationa / sob. No gi issues/ melena. No urinary issues (does have hx uti) . Per brother, she looks more pale than usual. Today at cardiac rehab around approx 1115, while on the bike, she experienced "fogginess" and extreme dizziness (not as spinning, but as weakness about to pass out). She last went to cardiac rehab two weeks ago, and was able to complete her bike and treadmill exercises. Plans to see Dr. Trujillo, but as of now has not been able to obtain f/ u appt. Additional PMHx: COPD, cardiac stents. 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 - History Of Current Complaint Chief Complaint: UCRespiratory Stated Complaint: SHORTNESS OF BREATH Hx Obtained From: Patient, Family/House Director - brother present Onset/Duration: Lasting Days - dizziness onset 5-6 days ago, Still Present Severity Initially: Moderate Severity Currently: Moderate Pain Intensity: 0 Pain Scale Used: 0-10 Numeric Character: Weak, Dizzy - Allergies/Home Medications Allergies/Adverse Reactions: Allergies Allergy/AdvReac Type Severity Reaction Status Date / Time Amoxicillin [From Augmentin] Allergy GI Upset Verified 09/21/16 16:41 Aripiprazole [From Abilify] Allergy GI Upset Verified 09/21/16 16:41 Clavulanic Acid Allergy GI Upset Verified 09/21/16 16:41 [From Augmentin] Desvenlafaxine [From Pristiq] Allergy GI Upset Verified 09/21/16 16:41 Lactose Intolerance (GI) Allergy GI Upset Verified 09/21/16 16:41 Mirtazapine [From Remeron] Allergy Unknown Verified 09/21/16 16:41 Reaction Details PMH/Surg Hx/FS Hx/Imm Hx Previously Healthy: No Cardiovascular History: Other Other Cardiovascular History: stents Respiratory History: COPD, Pulmonary Embolism GI/ History: Diverticulitis Psychological History: Anxiety, Depression - Surgical History Surgical History: Yes Surgery Procedure, Year, and Place: tubal ligation, appendectomy,ovari\\y removed - Family History Known Family History: Positive: Respiratory Disease - COPD (Emphysema) Negative: Cardiac Disease Family History: FHx of COPD and emphysema - Social History Occupation: Retired Lives: With Family Alcohol Use: None Substance Use Type: None Smoking Status (MU): Former Smoker Type: Cigarettes Amount Used/How Often: 1/4 packs a day Have You Smoked in the Last Year: Yes Household Exposure Type: Cigarettes - Immunization History Most Recent Influenza Vaccination: Unknown Most Recent Pneumonia Vaccination: Unknown Review of Systems Constitutional: Negative Skin: Negative Eyes: Diplopia ENT: Negative Respiratory: Negative Cardiovascular: Negative Gastrointestinal: Negative Genitourinary: Negative Motor: Negative Neurovascular: Negative Musculoskeletal: Negative Neurological: Weakness, Other - dizziness, "fogginess' Psychological: Negative All Other Systems Reviewed And Are Negative: Yes Physical Exam Triage Information Reviewed: Yes Appearance: Well-Appearing, Well-Nourished Vital Signs: Initial Vital Signs Temp 98.9 F 11/15/16 11:55 Pulse 78 11/15/16 11:55 Resp 16 11/15/16 11:55 BP 105/67 11/15/16 11:55 Pulse Ox 97 11/15/16 11:55 Vital Signs Reviewed: Yes ENT Exam: Normal Neck exam: Normal Neck: Positive: Supple, Nontender Respiratory Exam: Normal Respiratory: Positive: Chest non-tender, Lungs clear, Normal breath sounds, No respiratory distress, No accessory muscle use Cardiovascular Exam: Normal Cardiovascular: Positive: RRR, No Murmur, Pulses Normal, Brisk Capillary Refill Abdominal Exam: Normal Abdomen Description: Positive: Nontender, No Organomegaly, Soft Bowel Sounds: Positive: Present Neurological Exam: Normal - nonfocal, grossly intact Psychological Exam: Normal - conversing easily and appropriately Skin Exam: Normal - no visible or reported rash Diagnostics - EKG Cardiac Rate: NL - 76bpm Cardiac Rhythm: Sinus: Normal - RSR V1, V2, V3. ST Segment: Non-Specific - T-wave changes V2, V3 compared to 10/27/2016 Dizzy Course/Dx - Course Course Of Treatment: [facility] notes / ekgs recent, including discharge summary reviewed on 09/25/16. No new problems in CCC. Offered and encouraged EMS transport, but pt declines, ama for ems signed. Brother will drive her (he is accompanying her). ED called 12:35 no answer by MD/CORPORATE TRAINING MANAGER/PA. I will call back. 12:50 ED notified - MD / PA / CORPORATE TRAINING MANAGER will call back for further questions. Dr. Trujillo's office notified 12:40. No answer, 12:52 spoke with Concha at Dr. Trujillo , she will let him know. - Differential Dx/Diagnosis Provider Diagnoses: Weakness, dizziness, sob acute on subacute Discharge - Discharge Plan Condition: Stable Disposition: TRANS HIGHER LVL OF CARE FAC Discharge Disposition Comment: transfer to [facility] Referrals: John Trujillo MD [Primary Care Provider] - The documentation as recorded by the Mark ball SooYoung accurately reflects the service I personally performed and the decisions made by me, Paola Baker MD.
== END 2016-11-15 12:41 | disposition short-term general hospital (02) ==
LOC: UCEAST 11:41
DX: R53.1 Weakness (principal); R42 Dizziness and giddiness; R06.02 Shortness of breath; Z95.5 Presence of coronary angioplasty implant and graft; J44.9 Chronic obstructive pulmonary disease, unspecified; F17.210 Nicotine dependence, cigarettes, uncomplicated
CPT/HCPCS: 93005; 99213; G0463

== ENCOUNTER 2016-11-15 13:09 | Emergency (ER) | payer BC, MEDICARE ==
[2016-11-15] MEDS: Aspirin Low Dose CHEW TAB* 81 MG PO ONE ×2 (14:02→14:09)
[2016-11-15 15:02] LABS: Hematocrit 39 % (35-47); Hemoglobin 12.8 g/dl (12.0-16.0); Mean Corpuscular HGB Conc 32 g/dl (31-36); Mean Corpuscular Hemoglobin 30 pg (27-31); Mean Corpuscular Volume 92 fL (80-97); Mean Platelet Volume 8 um3 (7.4-10.4); Red Blood Count 4.27 10^6/ul (4.0-5.4); Red Cell Distribution Width 14 % (10.5-15)
--- NOTE | 2016-11-15 15:05 | RAD ---
HISTORY: Shortness of breath COMPARISONS: October 27, 2016 VIEWS:1: Single frontal portable view of the chest at 2:25 PM. Additional lateral views submitted at 2:49 PM FINDINGS: LINES AND TUBES: None. CARDIOMEDIASTINAL SILHOUETTE: The cardiomediastinal silhouette is normal for portable technique. PLEURA: The costophrenic angles are sharp. No pleural abnormalities are noted. LUNG PARENCHYMA: There is hyperinflation. ABDOMEN: The upper abdomen is clear. There is no subphrenic gas. BONES AND SOFT TISSUES: No bone or soft tissue abnormalities are noted. IMPRESSION: NO ACTIVE CARDIOPULMONARY DISEASE.
[2016-11-15 15:19] LABS: BUN/Creatinine Ratio 10.4 (8-20); Calcium 9.2 mg/dL (8.6-10.3); EGFR African American 96.5 (>60); Potassium 3.8 mmol/L (3.5-5.0); Total Bilirubin 0.4 mg/dL (0.2-1.0)
[2016-11-15 16:14] LABS: TSH (Thyroid Stimulating Horm) 2.34 mcIU/mL (0.34-5.60)
[2016-11-15 18:26] VITALS: BP 128/72
--- NOTE | 2016-11-15 19:02 | ED ---
Minor Chapin Auryana, scribed for Asim Armstrong MD on 11/15/16 at 1406 . Respiratory - HPI Summary HPI Summary: 66 year old female presents to the ED with lightheadedness and dizziness for the past 3 days with an acute episode this morning. She was exercising at cardiac rehab and began to feel dizzy, weak, and shaky when switching from the bicycle to another exercise machine. She also notes diplopia and SOB during the episode. She denies any diaphoresis, sore throat, post-nasal drip (normal at baseline), wheezing, chest pain, or any N/V. Dizziness and SOB resolved after several minutes of resting and drinking water. Patient reports that she was in the ED 3 weeks ago for an episode of chest pain during cardiac rehab. Patient is currently on a blood thinner- Brilinta. PMHx is significant for COPD. - History of Current Complaint Chief Complaint: EDShortnessOfBreath Stated Complaint: SOB,DIZZINESS/SENT FROM [facility] Time Seen by Provider: 11/15/16 13:47 Hx Obtained From: Patient Onset/Duration: Sudden Onset, Lasting Days, Worse Since - acute episode of dizziness and weakness during cardiac rehab this morning Timing: Intermittent Episodes Lasting: Initial Severity: Moderate Current Severity: Mild Pain Intensity: 0 Character: Dyspnea on Exertion - no SOB while exercising on a bicycle, only upon switching to a different exercise machine Aggravating Factor(s): Exertion Alleviating Factor(s): Rest Associated Signs and Symptoms: SOB, Dizziness Related History: Similar Episode/Dx as - similar - see HPI - Allergy/Home Medications Allergies/Adverse Reactions: Allergies Allergy/AdvReac Type Severity Reaction Status Date / Time Amoxicillin [From Augmentin] Allergy GI Upset Verified 09/21/16 16:41 Aripiprazole [From Abilify] Allergy GI Upset Verified 09/21/16 16:41 Clavulanic Acid Allergy GI Upset Verified 09/21/16 16:41 [From Augmentin] Desvenlafaxine [From Pristiq] Allergy GI Upset Verified 09/21/16 16:41 Lactose Intolerance (GI) Allergy GI Upset Verified 09/21/16 16:41 Mirtazapine [From Remeron] Allergy Unknown Verified 09/21/16 16:41 Reaction Details PMH/Surg Hx/FS Hx/Imm Hx Endocrine/Hematology History: Denies: Hx Diabetes, Hx Thyroid Disease Cardiovascular History: Reports: Hx Deep Vein Thrombosis Denies: Hx Angina, Hx Coronary Artery Disease, Hx Hypercholesterolemia, Hx Hypertension, Hx Myocardial Infarction, Hx Valvular Heart Disease Respiratory History: Reports: Hx Chronic Obstructive Pulmonary Disease (COPD), Hx Pulmonary Embolism, Other Respiratory Problems/Disorders - hx bronchitis Denies: Hx Asthma GI History: Reports: Hx Diverticulosis Denies: Hx Ulcer Sensory History: Reports: Hx Contacts or Glasses Denies: Hx Hearing Aid Opthamlomology History: Reports: Hx Contacts or Glasses Neurological History: Reports: Hx Migraine Comment Only: Other Neuro Impairments/Disorders - insomnia Psychiatric History: Reports: Hx Anxiety, Hx Depression - Cancer History Cancer Type, Location and Year: ibs - Surgical History Surgery Procedure, Year, and Place: tubal ligation, appendectomy - Immunization History Date of Tetanus Vaccine: unknown Date of Influenza Vaccine: none Infectious Disease History: Denies: Hx Clostridium Difficile, Hx Hepatitis, Hx Human Immunodeficiency Virus (HIV), Hx of Known/Suspected MRSA, Hx Shingles, Hx Tuberculosis, Hx Known/ Suspected VRE, Hx Known/Suspected VRSA, History Other Infectious Disease, Traveled Outside the [place] in Last 30 Days - Family History Known Family History: Positive: Respiratory Disease - COPD (Emphysema) Negative: Cardiac Disease Family History: FHx of COPD and emphysema - Social History Alcohol Use: None Substance Use Type: Reports: None Hx Tobacco Use: Yes Smoking Status (MU): Current Some Day Smoker Type: Cigarettes Amount Used/How Often: 1/4 packs a day Have You Smoked in the Last Year: Yes Review of Systems Positive: Other - DIZZINESS. Negative: Skin Diaphoresis Positive: Diplopia ENT: Negative Negative: Sore Throat, Other - new post-nasal drip Cardiovascular: Negative Negative: Chest Pain Positive: Shortness Of Breath. Negative: Other - no wheezing Gastrointestinal: Negative Negative: Vomiting, Nausea Genitourinary: Negative Positive: Other - reports feeling shaky and weak Skin: Negative Neurological: Negative Psychological: Normal All Other Systems Reviewed And Are Negative: Yes Physical Exam - Summary Physical Exam Summary: VITAL SIGNS: Reviewed. GENERAL: Patient is a well-developed and nourished FEMALE who is lying comfortable in the stretcher. Patient is not in any acute respiratory distress. HEAD AND FACE: No signs of trauma. No ecchymosis, hematomas or skull depressions. No sinus tenderness. EYES: PERRLA, EOMI x 2, No injected conjunctiva, no nystagmus. EARS: Hearing grossly intact. Ear canals and tympanic membranes are within normal limits. MOUTH: Oropharynx within normal limits. NECK: Supple, trachea is midline, no adenopathy, no JVD, no carotid bruit, no c- spine tenderness, neck with full ROM. CHEST: Symmetric, no tenderness at palpation LUNGS: Clear to auscultation bilaterally. No wheezing or crackles. CVS: Regular rate and rhythm, S1 and S2 present, no murmurs or gallops appreciated. ABDOMEN: Soft, non-tender. No signs of distention. No rebound no guarding, and no masses palpated. Bowel sounds are normal. EXTREMITIES: FROM in all major joints, no edema, no cyanosis or clubbing. NEURO: Alert and oriented x 3. No acute neurological deficits. Speech is normal and follows commands. SKIN: Dry and warm. Triage Information Reviewed: Yes Vital Signs On Initial Exam: Initial Vitals Temp Pulse Resp BP Pulse Ox 97.9 F 83 17 103/58 99 11/15/16 13:40 11/15/16 13:40 11/15/16 13:40 11/15/16 13:40 11/15/16 13:40 Vital Signs Reviewed: Yes Diagnostics - Vital Signs Vital Signs Temp Pulse Resp BP Pulse Ox 11/15/16 13:40 97.9 F 83 17 103/58 99 - Laboratory Lab Results: Lab Results 11/15/16 11/15/16 11/15/16 Range/Units 14:57 14:57 14:57 WBC 11.0 H (3.5-10.8) 10^3/ul RBC 4.27 (4.0-5.4) 10^6/ul Hgb 12.8 (12.0-16.0) g/dl Hct 39 (35-47) % MCV 92 (80-97) fL MCH 30 (27-31) pg MCHC 32 (31-36) g/dl RDW 14 (10.5-15) % Plt Count 344 (150-450) 10^3/ul MPV 8 (7.4-10.4) um3 Neut % (Auto) 73.0 (38-83) % Lymph % (Auto) 21.8 L (25-47) % Hill % (Auto) 4.2 (1-9) % Eos % (Auto) 0.5 (0-6) % Baso % (Auto) 0.5 (0-2) % Absolute Neuts (auto) 8.0 H (1.5-7.7) 10^3/ul Absolute Lymphs (auto) 2.4 (1.0-4.8) 10^3/ul Absolute Monos (auto) 0.5 (0-0.8) 10^3/ul Absolute Eos (auto) 0.1 (0-0.6) 10^3/ul Absolute Basos (auto) 0.1 (0-0.2) 10^3/ul Absolute Nucleated RBC 0 10^3/ul Nucleated RBC % 0 INR (Anticoag Therapy) 0.97 (0.89-1.11) APTT 29.2 (26.0-36.3) seconds D-Dimer, Quantitative < 200 (Less Than 230) ng/mL Sodium 136 (133-145) mmol/L Potassium 3.8 (3.5-5.0) mmol/L Chloride 102 (101-111) mmol/L Carbon Dioxide 28 (22-32) mmol/L Anion Gap 6 (2-11) mmol/L BUN 8 (6-24) mg/dL Creatinine 0.77 (0.51-0.95) mg/dL Est GFR ( Amer) 96.5 (>60) Est GFR (Non-Af Amer) 75.0 (>60) BUN/Creatinine Ratio 10.4 (8-20) Glucose 121 H (70-100) mg/dL Lactic Acid (0.5-2.0) mmol/L Calcium 9.2 (8.6-10.3) mg/dL Total Bilirubin 0.40 (0.2-1.0) mg/dL AST 16 (13-39) U/L ALT 12 (7-52) U/L Alkaline Phosphatase 78 (34-104) U/L Total Creatine Kinase 45 (10-223) U/L CK-MB (CK-2) 1.0 (0.6-6.3) ng/mL Troponin I 0.00 (<0.04) ng/mL B-Natriuretic Peptide ( - 100) pg/mL Total Protein 7.0 (6.4-8.9) g/dL Albumin 4.0 (3.2-5.2) g/dL Globulin 3.0 (2-4) g/dL Albumin/Globulin Ratio 1.3 (1-3) TSH 2.34 (0.34-5.60) mcIU/mL 11/15/16 11/15/16 11/15/16 Range/Units 14:57 14:57 16:33 WBC (3.5-10.8) 10^3/ul RBC (4.0-5.4) 10^6/ul Hgb (12.0-16.0) g/dl Hct (35-47) % MCV (80-97) fL MCH (27-31) pg MCHC (31-36) g/dl RDW (10.5-15) % Plt Count (150-450) 10^3/ul MPV (7.4-10.4) um3 Neut % (Auto) (38-83) % Lymph % (Auto) (25-47) % Hill % (Auto) (1-9) % Eos % (Auto) (0-6) % Baso % (Auto) (0-2) % Absolute Neuts (auto) (1.5-7.7) 10^3/ul Absolute Lymphs (auto) (1.0-4.8) 10^3/ul Absolute Monos (auto) (0-0.8) 10^3/ul Absolute Eos (auto) (0-0.6) 10^3/ul Absolute Basos (auto) (0-0.2) 10^3/ul Absolute Nucleated RBC 10^3/ul Nucleated RBC % INR (Anticoag Therapy) (0.89-1.11) APTT (26.0-36.3) seconds D-Dimer, Quantitative (Less Than 230) ng/mL Sodium (133-145) mmol/L Potassium (3.5-5.0) mmol/L Chloride (101-111) mmol/L Carbon Dioxide (22-32) mmol/L Anion Gap (2-11) mmol/L BUN (6-24) mg/dL Creatinine (0.51-0.95) mg/dL Est GFR ( Amer) (>60) Est GFR (Non-Af Amer) (>60) BUN/Creatinine Ratio (8-20) Glucose (70-100) mg/dL Lactic Acid 1.1 (0.5-2.0) mmol/L Calcium (8.6-10.3) mg/dL Total Bilirubin (0.2-1.0) mg/dL AST (13-39) U/L ALT (7-52) U/L Alkaline Phosphatase (34-104) U/L Total Creatine Kinase (10-223) U/L CK-MB (CK-2) (0.6-6.3) ng/mL Troponin I 0.00 (<0.04) ng/mL B-Natriuretic Peptide 16 ( - 100) pg/mL Total Protein (6.4-8.9) g/dL Albumin (3.2-5.2) g/dL Globulin (2-4) g/dL Albumin/Globulin Ratio (1-3) TSH (0.34-5.60) mcIU/mL Result Diagrams: 11/15/16 14:57 11/15/16 14:57 Lab Statement: Any lab studies that have been ordered have been reviewed, and results considered in the medical decision making process. - Radiology CXR Xray Interpretation: No Acute Changes Radiology Interpretation Completed By: Radiologist - EKG 15:27 EKG Interpretation: NSR at 68 bpm, no ST elevation EKG Comparison: No Significant Change Disposition - Course Assessment/Plan: 66 year old female presents to the ED with lightheadedness and dizziness for the past 3 days with an acute episode this morning. She was exercising at cardiac rehab and began to feel dizzy, weak, and shaky when switching from the bicycle to another exercise machine. She also notes diplopia and SOB during the episode. She denies any diaphoresis, sore throat, post-nasal drip (normal at baseline), wheezing, chest pain, or any N/V. Dizziness and SOB resolved after several minutes of resting and drinking water. Patient reports that she was in the ED 3 weeks ago for an episode of chest pain during cardiac rehab. Patient is currently on a blood thinner- Brilinta. PMHx is significant for COPD. Test results WNL except WBC 11, Glucose 121, Troponin #1 & #2 0.00. CXR NAD. EKG NSR w/o ST elevation. In Ed course, patient remains asymptomatic therefore patient will be discharged home with f/u to PCP. Patient was instructed to return to the ED if she develops any fevers, chills, chest pain or palpitations. She understands and agrees. - Differential Dx - Cardiopulmonary Differential Diagnoses - Cardiopulmonary: Acute Coronary, Exacerbation Of COPD - Diagnoses Provider Diagnoses: Shortness of breath, Dyspnea Discharge - Discharge Plan Condition: Stable Disposition: HOME Patient Education Materials: Dyspnea (ED) Referrals: John Trujillo MD [Primary Care Provider] - 2 Days The documentation as recorded by the Minor ball Auryana accurately reflects the service I personally performed and the decisions made by Nathaniel rashid Walter, MD.
== END 2016-11-15 18:25 | disposition home or self-care (01) ==
LOC: ED 13:09
DX: R06.02 Shortness of breath (principal); R06.00 Dyspnea, unspecified; R42 Dizziness and giddiness; Z72.0 Tobacco use
CPT/HCPCS: 36415; 71020; 80053; 82550; 82553; 83605; 83880; 84443; 84484; 85025; 85379; 85610; 85730; 93005; 99283; A9270-GY

== ENCOUNTER 2017-04-25 13:11 | Observation (INO) | payer BC, MEDICARE ==
[2017-04-25] MEDS ORDERED: Nitroglycerin TAB 0.4 MG* 0.4 MG TAB SL ONE ×2 (14:43→17:12)
--- NOTE | 2017-04-25 15:30 | RAD ---
HISTORY: Chest pain COMPARISONS: November 15, 2016 VIEWS: 1: frontal portable view of the chest at 3:00 PM FINDINGS: LINES AND TUBES: None. CARDIOMEDIASTINAL SILHOUETTE: The cardiomediastinal silhouette is normal for portable technique. PLEURA: The costophrenic angles are sharp. No pleural abnormalities are noted. LUNG PARENCHYMA: There is hyperinflation. ABDOMEN: The upper abdomen is clear. There is no subphrenic gas. BONES AND SOFT TISSUES: No bone or soft tissue abnormalities are noted. IMPRESSION: HYPERINFLATION CONSISTENT WITH COPD. NO ACTIVE CARDIOPULMONARY DISEASE.
[2017-04-25 15:32] LABS: Hematocrit 37 % (35-47); Mean Corpuscular HGB Conc 33 g/dl (31-36); Mean Corpuscular Hemoglobin 30 pg (27-31); Mean Corpuscular Volume 91 fL (80-97); Mean Platelet Volume 8 um3 (7.4-10.4); Red Cell Distribution Width 15 % (10.5-15); White Blood Count 8.8 10^3/ul (3.5-10.8)
[2017-04-25 15:48] LABS: BUN/Creatinine Ratio 16.4 (8-20); Potassium 3.5 mmol/L (3.5-5.0)
[2017-04-25 15:49] LABS: Albumin 4.1 g/dL (3.2-5.2); Calcium 9.2 mg/dL (8.6-10.3); EGFR African American 102.6 (>60); EGFR Non-African American 79.8 (>60); Globulin 2.8 g/dL (2-4); Total Bilirubin 0.3 mg/dL (0.2-1.0); Total Protein 6.9 g/dL (6.4-8.9)
[2017-04-25] MEDS ORDERED: Iohexol 350* (CONTRAST) 500 ML MDV IV ONE (16:00)
--- NOTE | 2017-04-25 16:24 | RAD ---
INDICATION: Pleuritic chest pain. History of pulmonary embolus COMPARISON: Chest x-ray April 25, 2017. TECHNIQUE: Axial source images were obtained from the thoracic inlet to the hemidiaphragms following administration of [address] angiographic technique was utilized. Coronal and sagittal reconstructed images were acquired. CHEST FINDINGS: Neck/thyroid: The visualized neck to include the thyroid appear normal. Chest wall: There are no acute abnormalities of the bony thorax or chest wall. There is no supraclavicular, infraclavicular, or axillary lymphadenopathy. Lungs : There are no pulmonary parenchymal masses or infiltrates. There is hyperinflation with mild emphysematous change. There are no endobronchial lesions. Cardiomediastinal structures: There is no CT evidence of acute pulmonary embolic disease. The heart is normal in size. There is no pericardial effusion. There is no evidence of aortic aneurysm or dissection. There is no mediastinal or hilar adenopathy. The esophagus appears normal. Pleura : There is mild biapical scarring. There are no effusions. Other: None. IMPRESSION: NO CT EVIDENCE OF ACUTE PULMONARY EMBOLIC DISEASE. HYPERINFLATION WITH MILD EMPHYSEMATOUS CHANGE
[2017-04-25] MEDS ORDERED: Morphine INJ* 2 MG/ML 1 ML SYRINGE (TWO MG - NEW SYRINGE VERSION) IV PRN (17:02)
[2017-04-25] MEDS ORDERED: Ondansetron INJ* 2 MG/ML VIAL IV PRN (17:02)
[2017-04-25] MEDS ORDERED: Acetaminophen TAB* 325 MG PO PRN (17:02)
[2017-04-25] MEDS ORDERED: SUMAtriptan SQ* 6 MG/0.5 ML VIAL SUBCUT PRN (17:06)
[2017-04-25] MEDS ORDERED: Cyclobenzaprine TAB* 10 MG PO PRN (17:06)
[2017-04-25] MEDS ORDERED: traZODone TAB* 50 MG TAB PO PRN (17:06)
[2017-04-25] MEDS ORDERED: Zolpidem TAB* 10 MG PO PRN (17:06)
[2017-04-25] MEDS ORDERED: Albuterol HFA INHALER* 8 gm MDI INH PRN (17:06)
[2017-04-25] MEDS ORDERED: Atorvastatin* 80 MG TAB PO SCH (21:00)
[2017-04-25] MEDS: clonazePAM TAB(*) 0.5 MG PO SCH (22:11)
[2017-04-25] MEDS: Ticagrelor* 90 MG TAB PO SCH (22:12)
[2017-04-25] MEDS: Heparin VIAL(*) 5000 UNITS/ML VIAL (FIVE THOUSAND) SUBCUT SCH (22:14)
--- NOTE | 2017-04-26 04:24 | ED ---
IJose Angela, scribed for Salma Quezada MD on 04/25/17 at 1521 . Progress - Progress Note Progress Note: This pt was signed out by Dr. Cruz, pending disposition, awaiting Chest XR and CTA chest. Pt is accompanied by her co-workers c/o intermittent chest pain x3 days. Her pain over the weekend was without exertion. Today her pain began after exertion today with SOB. She states she was moving shelves by herself (40 lbs), which she notes she shouldn't have done by herself. Pt denies nausea, vomiting, diaphoresis. She currently c/o headache and after taking the dye for her CTA, she c/o abd discomfort. PMHx of COPD. Pt reports she has a stent placed in September 2016. She notes she rarely smokes. Her crime lab technician is Dr. Casillas. Pt will be admitted to [facility] [place], in stable condition. - Results/Orders Results/Orders: Chest XR, as read by radiologist: IMPRESSION: Hyperinflation consistent with COPD. No active cardiopulmonary disease. Dr. Quezada has reviewed this radiology report. CTA Chest, as read by radiologist: IMPRESSION: No CT evidence of acute pulmonary embolic disease. Hyperinflation with mild emphysematous change. Dr. Quezada has reviewed this radiology report. Re-Evaluation - Re-Evaluation First Eval Re-Evaluation Time: 16:24 Comment: After nitroglycerin, pt notes her chest pain has resolved currently. Third Eval Re-Evaluation Time: 17:04 Comment: I reviewed the CT results with the pt. Admission plan was discussed with the pt, as per Dr. Casillas. Course/Dx - Diagnoses Provider Diagnoses: Chest pain - Provider Notifications Discussed Care Of Patient With: Brian Casillas Time Discussed With Above Provider: 16:53 Instructed by Provider To: Admit As Observation - I discussed pt's case with Dr. Casillas, who recommends observation in the hospital. [17:02] I discusssed pt care with Dr. Chaidez, hospitalist, who has accepted the pt for admission. The documentation as recorded by the Jose ball Angela accurately reflects the service I personally performed and the decisions made by me, Salma Quezada MD.
[2017-04-26] MEDS: Heparin VIAL(*) 5000 UNITS/ML VIAL (FIVE THOUSAND) SUBCUT SCH ×2 (05:28→15:34)
[2017-04-26] MEDS ORDERED: Aspirin Low Dose CHEW TAB* 81 MG PO SCH (09:00)
[2017-04-26] MEDS ORDERED: Citalopram TAB* 40 MG PO SCH (09:00)
[2017-04-26] MEDS: Ticagrelor* 90 MG TAB PO SCH (09:59)
[2017-04-26] MEDS: clonazePAM TAB(*) 0.5 MG PO SCH (09:59)
--- NOTE | 2017-04-26 10:21 | HP ---
CC: Dr. John Trujillo; Dr. Casillas ADMISSION HISTORY AND PHYSICAL: DATE OF ADMISSION: 04/25/17 TIME OF EVALUATION: 6:30 p.m. PRIMARY CARE PROVIDER: Dr. John Trujillo. OUTPATIENT SHRUB GROWER: Dr. Casillas. CHIEF COMPLAINT: Chest pain ("like when I had my stent this summer"). HISTORY OF PRESENT ILLNESS: Ms. Rodriguez is a pleasant 66-year-old female who comes to the emergency room with intermittent chest pain for the past 3 days. Her pain was worse 2 days ago and then yesterday (intermittent). The patient noted that it is difficult to breathe along with shortness of breath. She is on Brilinta and aspirin, having had a stent this summer here [place] [facility] [place] (see past medical history below). Her glass presser is Dr. Casillas. The patient has a remote history of pulmonary embolism. The patient continues to smoke, although rarely. She describes using a pack over the course of months (intermittently having one cigarette). The patient describes pain that is substernal. It is aching and it feels like "the stent is going to come out of my chest." The patient states that nothing changes it, nothing makes it worse or better. The patient had a abnormal EKG and this was in the setting of urinary tract infection back in September 2016. At that time, she had chest pain and neck pain radiating to the left arm and her neck and the patient had a nuclear stress test, which showed elevation in the ischemic dilation ratio suggesting multivessel coronary disease and then underwent cardiac catheterization and 80% stenosis in the proximal right coronary artery was stented with a drug- eluting stent and the patient was started on ticagrelor and aspirin and atorvastatin. PAST MEDICAL HISTORY: 1. Anxiety. 2. Depression. 3. Insomnia. 4. Back pain. 5. Migraines. 6. Coronary artery disease - as above. 7. Tobacco abuse - minimal, but still present. PAST SURGICAL HISTORY: History of tubal ligation, appendectomy, ORIF left leg. OUTPATIENT MEDICATIONS: 1. Albuterol inhaler 1 puff every 4 hours as needed for shortness of breath. 2. Aspirin 81 mg by mouth daily. 3. Lipitor 80 mg by mouth q.h.s. 4. Celexa 40 mg by mouth daily. 5. Klonopin 1 mg by mouth twice daily. 6. Flexeril 5 to 10 mg by mouth at bedtime. 7. Sumatriptan/Imitrex 6 mg subcu p.r.n. headache. 8. Brilinta 90 mg by mouth twice daily. 9. Desyrel/trazodone 50 to 100 mg by mouth at bedtime p.r.n. pain/discomfort. 10. Ambien 10 mg by mouth at bedtime p.r.n. insomnia. ALLERGIES: REMERON/LACTULOSE INTOLERANCE/AUGMENTIN/PRISTIQ/ABILIFY. FAMILY HISTORY: Maternal grandmother has cardiomyopathy. Maternal grandmother' s siblings all had heart disease and passed in their 50s or 60s. There is no history of diabetes reported. There is lung cancer in her maternal grandfather. The patient's mother had a history of COPD and father from emphysema. SOCIAL HISTORY: The patient has smoked quarter pack a day or more for at least 45 to 50 years. 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 The patient' s daughter, Ernestine Gomez (Maggie), is her surrogate decision maker and she can be reached at [phone]. REVIEW OF SYSTEMS: A 14-point review of systems was accomplished at the bedside. This is largely negative except for the pertinent positives as mentioned above in the HPI and past medical history. PHYSICAL EXAMINATION ON ADMISSION: GENERAL APPEARANCE: Elderly appearing woman in no apparent distress. Awake, alert, and oriented x3, answering questions appropriately. She is sitting up during my exam. VITAL SIGNS: On admission, temperature 96.9 degrees Fahrenheit, blood pressure 130s/70s, pulse 70s to 90 and regular, oxygen saturation 97% on room air, respirations 16 to 20 and unlabored. HEENT: Oropharynx is clear. Mucous membranes are moist. No posterior pharyngeal erythema or exudate. Pupils equal, round, and reactive to light and accommodation. NECK: Supple. No elevated JVD. RESPIRATIONS: Clear lungs sounds anteriorly and posteriorly. CARDIOVASCULAR: Regular rate and rhythm. Normal S1, normal S2. ABDOMEN: Soft and nontender. EXTREMITIES: Without clubbing, cyanosis, edema. MUSCULOSKELETAL: No chest wall tenderness. No musculoskeletal complaints or abnormalities. NEUROLOGIC: No focal sensory or proprioception or sensory deficiency. PSYCH: Normal affect. No acute anxiety or depression. ADMISSION LABS: CBC is normal. Blood chemistries are normal across the board without any abnormalities. Troponin initially is 0.00, repeat 0.00 with the first reading at 1519 hours, second at 1745 hours. CTA chest with contrast (CTA) showed no CT evidence of acute pulmonary embolism and hyperinflation with mild emphysematous changes (consistent with longstanding tobacco abuse history). EKG is normal sinus rhythm with a RSR pattern in the septal leads (V1, V2) without any evidence of ST or T wave changes to suggest acute ischemia. Chest x-ray is clear with evidence of hyperinflation. IMPRESSION: Ms. Rodriguez is 66-year-old female status post abnormal stress test and high-grade stenosis with drug-eluting stent placed back in middle of 2016, who now presents with chest pain suggested to be related to chest discomfort she has had in the past (like when she had her stent). The patient is being admitted to complete a rule out for acute coronary syndrome and then to proceed with stress testing, which will provide assurance the patient is seeking. Given the patient's remote history of pulmonary embolism and smoking history, it was correct to rule out a pulmonary embolus and that has successfully been done with the CTA chest. The patient's outpatient medications will be continued and further decisions will be based on her clinical progress and performance on a nuclear chemical stress test. I am choosing a chemical stress test for her because she previously had a hard time completing her stress test and feel she will not be able to complete that today by exercising. TIME SPENT: Total time taken to admit Ms. Rodriguez was 70 minutes, greater than half the time was spent going over the history and physical examination, face-to - face with the patient. [id number]/[facility] #: [id number] YULISA
[2017-04-26 12:42] VITALS: BP 96/44
[2017-04-26] MEDS ORDERED: Aminophylline IV* 25 MG/ML 10 ML VIAL ONE (13:22)
[2017-04-26] MEDS ORDERED: Regadenoson* 0.4 MG/5 ML SYRINGE ONE (13:22)
--- NOTE | 2017-04-26 14:50 | RAD ---
HISTORY: Chest pain COMPARISONS: September 22, 2016 TECHNIQUE: A 1 day stress/rest myocardial perfusion study was performed, with pharmacologic stress. The stress portion was monitored by Dr. Myles. Gated SPECT imaging was performed, with CT-based attenuation correction DOSE: Stress: Technetium 99m tetrofosmin, 25.4 millicuries, injected at 1:01 PM on April 26, 2017 Rest: Technetium 99m tetrofosmin, 10.21 millicuries, injected at 7:22 AM on April 26, 2017 Pharmacologic agent: Lexiscan FINDINGS: CARDIAC MONITORING: No EKG evidence of ischemia with stress EF: 71% TID: 1.08 MOTION: Normal motion, with normal wall thickening. PERFUSION: There are no fixed or reversible perfusion defects. OTHER: None IMPRESSION: NO FIXED OR REVERSIBLE PERFUSION DEFECTS. THE TID IS NORMAL. ASSESSMENT: LOW RISK. Based on imaging criteria from ACC/AHA 2002. Guideline Update for the Management of Patient's with Chronic Stable Angina, table 23. Noninvasive Risk Stratification.
--- NOTE | 2017-04-27 06:06 | DS ---
CC: Dr. Trujillo; Dr. Casilals* DISCHARGE SUMMARY: DATE OF ADMISSION: 04/25/17 DATE OF DISCHARGE: 04/26/17 PRIMARY CARE PROVIDER: Dr. John Trujillo. [employer] ARCHITECT: Dr. Casillas. PRIMARY DIAGNOSIS: Chest pain. SECONDARY DIAGNOSES: Include: 1. Coronary artery disease status post PCI in September 2016. 2. Anxiety. 3. Depression. 4. Insomnia. 5. Migraines. 6. Current tobacco abuse. MEDICATIONS ON DISCHARGE: Unchanged from admission except for the addition of nitroglycerin sublingual as needed includes: 1. Imitrex subcu 6 mg subcutaneously as needed. 2. Atorvastatin 80 mg in the evening. 3. Zolpidem 10 mg at bedtime as needed for insomnia. 4. Brilinta 90 mg twice daily. 5. Flexeril 5 to 10 mg at bedtime as needed. 6. Citalopram 40 mg daily. 7. Aspirin 81 mg daily. 8. Albuterol HFA 1 puff every 4 hours as needed. 9. Trazodone 50 to 100 mg at bedtime as needed. 10. Clonazepam 1 mg twice daily. 12. Sublingual nitroglycerin 0.4 mg every 5 minutes as needed for chest pain up to 3 times. PERTINENT LABORATORY DATA: Troponin I 0.00 on 5 consecutive checks. PERTINENT IMAGING: Performed during hospital stay, CTA chest and thorax, impression: No acute CT evidence of acute pulmonary embolism disease. Hyperinflation with mild emphysematous changes. Chemical stress with nuclear imaging. Impression: No fixed or reversible perfusion defects. The TID is normal. Assessment is low risk. HISTORY OF PRESENT ILLNESS AND HOSPITAL COURSE: This is a 66-year-old female with past medical history as outlined in the history of present illness, on the day of admission presented to the hospital with several days of chest pain that was noted to be intermittent and pounding "like my stent was beating out of my chest." She was admitted to the hospital, underwent serial troponins while monitored on telemetry and underwent chemical stress nuclear imaging, which was low risk. The patient's chest pain resolved. She notes that she was not particularly worried, although her daughter was concerned and advised her to proceed to the hospital. 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 I encouraged the patient to return to the hospital should she have recurrent or worsening chest pain including if it is associated with symptoms such as shortness of breath, nausea, vomiting, lightheadedness, diaphoresis. The patient does have known cardiac disease status post stenting for her right coronary artery. There were no complications in this patient's hospital stay. Smoking cessation advice was given. At followup, please; 1. Evaluate for continued blood pressure and cholesterol control. 2. Continue to advise smoking cessation as I am sure you are. 3. No other specific labs or vitals that need followup. Reasons to return to the hospital included but not limited to recurrent or worsening symptoms, chest pain, shortness of breath, nausea, vomiting, lightheadedness, loss of consciousness, diaphoresis, and inability to obtain or tolerate medications, bleeding from any sources discussed with the patient who acknowledged understanding. TIME SPENT: Greater than 60 minutes was spent in the discharge of this patient , greater than half was spent [id number] with the patient. [id number]/CPS #: [id number] MTDD
== END 2017-04-26 16:52 | disposition home or self-care (01) ==
LOC: ED 13:11 → MEDTELE 18:43
PROVIDERS: ADMIT Internal Medicine; ATTEND Internal Medicine
DX: R07.9 Chest pain, unspecified (principal); I25.10 Atherosclerotic heart disease of native coronary artery without angina pectoris; F41.9 Anxiety disorder, unspecified; F32.9 Major depressive disorder, single episode, unspecified; G43.909 Migraine, unspecified, not intractable, without status migrainosus; F17.200 Nicotine dependence, unspecified, uncomplicated; Z79.82 Long term (current) use of aspirin; Z79.899 Other long term (current) drug therapy
CPT/HCPCS: 36415; 71010; 71275; 78452; 80053; 83605; 84484; 85025; 93005; 93017; 96365; 96375; 96376; 99283; A9270-GY; A9502; G0378; J0280; J1644; J2785; Q9967

== ENCOUNTER 2017-06-12 09:49 | Emergency (ER) | payer BC, MEDICARE ==
[2017-06-12] MEDS ORDERED: Albuterol/Ipratropium NEB.SOL* Albuterol 2.5 MG/Ipratropium 0.5 MG 3 ML INH ONE (10:36)
[2017-06-12] MEDS ORDERED: predniSONE TAB* 20 MG PO ONE (10:44)
[2017-06-12 11:03] LABS: ABS Basophils 0.1 10^3/ul (0-0.2); ABS Eosinophils 0.4 10^3/ul (0-0.6); ABS Lymphocytes 1.8 10^3/ul (1.0-4.8); ABS Monocytes 0.4 10^3/ul (0-0.8); ABS Neutrophils 4.7 10^3/ul (1.5-7.7); ABS Nucleated RBC 0 10^3/ul; Eosinophil % 5.7 % (0-6); Hematocrit 38 % (35-47); Lymphocyte % 24.8 % (25-47); Mean Corpuscular HGB Conc 34 g/dl (31-36); Mean Corpuscular Hemoglobin 31 pg (27-31); Mean Corpuscular Volume 90 fL (80-97); Mean Platelet Volume 8 um3 (7.4-10.4); Nucleated Red Blood Cells % 0; Platelet Count 295 10^3/ul (150-450); Red Blood Count 4.22 10^6/ul (4.0-5.4); Red Cell Distribution Width 14 % (10.5-15); White Blood Count 7.5 10^3/ul (3.5-10.8)
--- NOTE | 2017-06-12 11:07 | RAD ---
INDICATION: Cough. COMPARISON: Comparison is made with a prior study from April 25, 2017. TECHNIQUE: Dual-energy PA and lateral views of the chest were obtained. FINDINGS: The heart is within normal limits in size. Mediastinal and hilar contours appear within normal limits. The lungs are hyperinflated with flattening of the diaphragms suggestive of chronic obstructive pulmonary disease. The lungs are clear. No pleural effusion is seen. IMPRESSION: FINDINGS SUGGESTIVE OF COPD, NO EVIDENCE FOR ACUTE FINDING.
[2017-06-12 11:27] LABS: EGFR Non-African American 85.1 (>60)
[2017-06-12] MEDS ORDERED: Azithromycin TAB* 250 MG PO ONE (12:01)
--- NOTE | 2017-06-12 12:01 | ED ---
Respiratory - HPI Summary HPI Summary: 66-year-old female presents with the past 3 days. She states she has been having muscle aches and fevers. She has been using an inhaler and a cough medication. She has history of COPD. She admits to chest pain when she coughs. She admits to increasing shortness of breath. She denies any swelling or pain in her legs. She states her symptoms started with abdominal pain nausea but that has resolved. She admits to a sore throat. She has been using Tylenol. She denies any one else being sick. - History of Current Complaint Chief Complaint: EDFluSymptoms Stated Complaint: FLU LIKE SYMPTOMS Time Seen by Provider: 06/12/17 10:05 Pain Intensity: 2 Sputum Amount: None - Allergy/Home Medications Allergies/Adverse Reactions: Allergies Allergy/AdvReac Type Severity Reaction Status Date / Time MS Amoxicillin Allergy GI Upset Verified 04/25/17 15:38 [From Augmentin] MS Aripiprazole Allergy GI Upset Verified 04/25/17 15:38 [From Abilify] MS Clavulanic Acid Allergy GI Upset Verified 04/25/17 15:38 [From Augmentin] MS Desvenlafaxine Allergy GI Upset Verified 04/25/17 15:38 [From Pristiq] MS Lactose Intolerance (GI) Allergy GI Upset Verified 04/25/17 15:38 [Lactose Intolerance (GI)] MS Mirtazapine [From Remeron] Allergy Unknown Verified 04/25/17 15:38 Reaction Details PMH/Surg Hx/FS Hx/Imm Hx Endocrine/Hematology History: Denies: Hx Diabetes, Hx Thyroid Disease Cardiovascular History: Reports: Hx Deep Vein Thrombosis Denies: Hx Angina, Hx Coronary Artery Disease, Hx Hypercholesterolemia, Hx Hypertension, Hx Myocardial Infarction, Hx Valvular Heart Disease Respiratory History: Reports: Hx Chronic Obstructive Pulmonary Disease (COPD), Hx Pulmonary Embolism, Other Respiratory Problems/Disorders - hx bronchitis Denies: Hx Asthma GI History: Reports: Hx Diverticulosis Denies: Hx Ulcer History: Denies: Hx Renal Disease Sensory History: Reports: Hx Contacts or Glasses Denies: Hx Hearing Aid Opthamlomology History: Reports: Hx Contacts or Glasses Neurological History: Reports: Hx Migraine Comment Only: Other Neuro Impairments/Disorders - insomnia Psychiatric History: Reports: Hx Anxiety, Hx Depression - Cancer History Cancer Type, Location and Year: ibs - Surgical History Surgery Procedure, Year, and Place: tubal ligation, appendectomy - Immunization History Date of Tetanus Vaccine: unknown Date of Influenza Vaccine: none Infectious Disease History: No Infectious Disease History: Denies: Hx Clostridium Difficile, Hx Hepatitis, Hx Human Immunodeficiency Virus (HIV), Hx of Known/Suspected MRSA, Hx Shingles, Hx Tuberculosis, Hx Known/ Suspected VRE, Hx Known/Suspected VRSA, History Other Infectious Disease, Traveled Outside the [place] in Last 30 Days - Family History Known Family History: Positive: Respiratory Disease - COPD (Emphysema) Negative: Cardiac Disease Family History: FHx of COPD and emphysema - Social History Alcohol Use: None Substance Use Type: Reports: None Hx Tobacco Use: Yes Smoking Status (MU): Current Some Day Smoker Type: Cigarettes Amount Used/How Often: 1/4 packs a day Have You Smoked in the Last Year: Yes Review of Systems Positive: Fever Positive: Chest Pain Positive: Shortness Of Breath, Cough Negative: Abdominal Pain - resolved All Other Systems Reviewed And Are Negative: Yes Physical Exam Triage Information Reviewed: Yes Vital Signs On Initial Exam: Initial Vitals Temp Pulse Resp BP Pulse Ox 97.4 F 85 18 113/70 97 06/12/17 09:50 06/12/17 09:50 06/12/17 09:50 06/12/17 09:50 06/12/17 09:50 Vital Signs Reviewed: Yes Appearance: Positive: Well-Appearing Skin: Positive: Warm, Dry Head/Face: Positive: Normal Head/Face Inspection Eyes: Positive: Normal, EOMI, EVELYN, Conjunctiva Clear ENT: Positive: Normal ENT inspection, Pharynx normal, TMs normal Respiratory/Lung Sounds: Positive: Clear to Auscultation, Decreased Breath Sounds Cardiovascular: Positive: Normal, RRR Abdomen Description: Positive: Nontender, Soft Bowel Sounds: Positive: Present Musculoskeletal: Positive: Normal Neurological: Positive: Normal Psychiatric: Positive: Normal Diagnostics - Vital Signs Vital Signs Temp Pulse Resp BP Pulse Ox 06/12/17 11:01 78 14 99 06/12/17 09:50 97.4 F 85 18 113/70 97 - Laboratory Lab Results: Lab Results 06/12/17 06/12/17 06/12/17 Range/Units 10:31 10:51 10:51 WBC 7.5 (3.5-10.8) 10^3/ul RBC 4.22 (4.0-5.4) 10^6/ul Hgb 13.0 (12.0-16.0) g/dl Hct 38 (35-47) % MCV 90 (80-97) fL MCH 31 (27-31) pg MCHC 34 (31-36) g/dl RDW 14 (10.5-15) % Plt Count 295 (150-450) 10^3/ul MPV 8 (7.4-10.4) um3 Neut % (Auto) 63.1 (38-83) % Lymph % (Auto) 24.8 L (25-47) % Lyon % (Auto) 5.3 (1-9) % Eos % (Auto) 5.7 (0-6) % Baso % (Auto) 1.1 (0-2) % Absolute Neuts (auto) 4.7 (1.5-7.7) 10^3/ul Absolute Lymphs (auto) 1.8 (1.0-4.8) 10^3/ul Absolute Monos (auto) 0.4 (0-0.8) 10^3/ul Absolute Eos (auto) 0.4 (0-0.6) 10^3/ul Absolute Basos (auto) 0.1 (0-0.2) 10^3/ul Absolute Nucleated RBC 0 10^3/ul Nucleated RBC % 0 Sodium 135 (133-145) mmol/L Potassium 3.6 (3.5-5.0) mmol/L Chloride 103 (101-111) mmol/L Carbon Dioxide 25 (22-32) mmol/L Anion Gap 7 (2-11) mmol/L BUN 8 (6-24) mg/dL Creatinine 0.69 (0.51-0.95) mg/dL Est GFR ( Amer) 109.5 (>60) Est GFR (Non-Af Amer) 85.1 (>60) BUN/Creatinine Ratio 11.6 (8-20) Glucose 104 H (70-100) mg/dL Calcium 9.0 (8.6-10.3) mg/dL Total Bilirubin 0.60 (0.2-1.0) mg/dL AST 23 (13-39) U/L ALT 24 (7-52) U/L Alkaline Phosphatase 71 (34-104) U/L Troponin I 0.00 (<0.04) ng/mL B-Natriuretic Peptide ( - 100) pg/mL Total Protein 7.1 (6.4-8.9) g/dL Albumin 4.0 (3.2-5.2) g/dL Globulin 3.1 (2-4) g/dL Albumin/Globulin Ratio 1.3 (1-3) Influenza A (Rapid) Negative (Negative) Influenza B (Rapid) Negative (Negative) 06/12/17 Range/Units 10:51 WBC (3.5-10.8) 10^3/ul RBC (4.0-5.4) 10^6/ul Hgb (12.0-16.0) g/dl Hct (35-47) % MCV (80-97) fL MCH (27-31) pg MCHC (31-36) g/dl RDW (10.5-15) % Plt Count (150-450) 10^3/ul MPV (7.4-10.4) um3 Neut % (Auto) (38-83) % Lymph % (Auto) (25-47) % Lyon % (Auto) (1-9) % Eos % (Auto) (0-6) % Baso % (Auto) (0-2) % Absolute Neuts (auto) (1.5-7.7) 10^3/ul Absolute Lymphs (auto) (1.0-4.8) 10^3/ul Absolute Monos (auto) (0-0.8) 10^3/ul Absolute Eos (auto) (0-0.6) 10^3/ul Absolute Basos (auto) (0-0.2) 10^3/ul Absolute Nucleated RBC 10^3/ul Nucleated RBC % Sodium (133-145) mmol/L Potassium (3.5-5.0) mmol/L Chloride (101-111) mmol/L Carbon Dioxide (22-32) mmol/L Anion Gap (2-11) mmol/L BUN (6-24) mg/dL Creatinine (0.51-0.95) mg/dL Est GFR ( Amer) (>60) Est GFR (Non-Af Amer) (>60) BUN/Creatinine Ratio (8-20) Glucose (70-100) mg/dL Calcium (8.6-10.3) mg/dL Total Bilirubin (0.2-1.0) mg/dL AST (13-39) U/L ALT (7-52) U/L Alkaline Phosphatase (34-104) U/L Troponin I (<0.04) ng/mL B-Natriuretic Peptide 17 ( - 100) pg/mL Total Protein (6.4-8.9) g/dL Albumin (3.2-5.2) g/dL Globulin (2-4) g/dL Albumin/Globulin Ratio (1-3) Influenza A (Rapid) (Negative) Influenza B (Rapid) (Negative) Result Diagrams: 06/12/17 10:51 06/12/17 10:51 Lab Statement: Any lab studies that have been ordered have been reviewed, and results considered in the medical decision making process. - Radiology chest Xray Interpretation: Positive (See Comments) - IMPRESSION: FINDINGS SUGGESTIVE OF COPD, NO EVIDENCE FOR ACUTE FINDING. Radiology Interpretation Completed By: Radiologist - EKG No standard instances Cardiac Rate: NL EKG Rhythm: Sinus Rhythm EKG Interpretation: sinus rhythm, no significant change Disposition - Course Course Of Treatment: 66-year-old female presents with the past 3 days. She states she has been having muscle aches and fevers. She has been using an inhaler and a cough medication. She has history of COPD. She admits to chest pain when she coughs. She states it feels like a tightness. She admits to increasing shortness of breath. She denies any swelling or pain in her legs. She states her symptoms started with abdominal pain nausea but that has resolved. She admits to a sore throat. She has been using Tylenol. She denies any one else being sick. On exam has decreased breath present. Abdomen soft nontender. Chest x-rays is that has COPD. EKG normal sinus rhythm. Negative troponin and normal bnp. flu negative. labs within normal limits. Will treat with steroids and zpack. patient understand and agrees with plan. - Differential Dx - Cardiopulmonary Differential Diagnoses - Cardiopulmonary: Bronchitis, Exacerbation Of COPD, Influenza, Lower Resp Infection - Diagnoses Provider Diagnoses: COPD (chronic obstructive pulmonary disease), Upper respiratory infection Discharge - Discharge Plan Condition: Good Disposition: HOME Prescriptions: Azithromycin TAB* [Zithromax TAB (Z-FELTON) 250 mg #6 tabs] 250 mg PO DAILY #4 tab predniSONE TAB* [Deltasone TAB*] 50 mg PO DAILY #4 tab Patient Education Materials: COPD (Chronic Obstructive Pulmonary Disease) (ED) Referrals: John Trujillo MD [Primary Care Provider] - Additional Instructions: Use inhaler up to two puffs every 4 hours for cough and wheezing Take steroid once a day for 4 more days starting tomorrow Take antibiotic once daily starting tomorrow for 4 days Take Tylenol for pain every 6 hours Return to ED if develop severe shortness of breath, worsening chest pain, or any new or worsening symptoms
[2017-06-12 12:52] VITALS: BP 128/63
== END 2017-06-12 12:50 | disposition home or self-care (01) ==
LOC: ED 09:49
DX: J44.9 Chronic obstructive pulmonary disease, unspecified (principal); J06.9 Acute upper respiratory infection, unspecified; R07.9 Chest pain, unspecified; R06.02 Shortness of breath; R50.9 Fever, unspecified; Z72.0 Tobacco use; Z87.09 Personal history of other diseases of the respiratory system; Z86.718 Personal history of other venous thrombosis and embolism; R05 Cough
CPT/HCPCS: 36415; 71046; 80053; 83880; 84484; 85025; 87502; 93005; 94640; 99282; A9270-GY; J7512

== ENCOUNTER 2017-12-23 14:34 | Emergency (ER) | payer BC, MEDICARE ==
[2017-12-23] MEDS ORDERED: Aspirin 81 mg CHEW TAB* 81 MG TAB.CHEW PO ONE (15:07)
--- NOTE | 2017-12-23 15:09 | ED ---
HPI Chest Pain - HPI Summary HPI Summary: This is scribe Issa Attebfei documenting for attending Quintin Melendrez MD. Patient is a 67 y/o F c/o CP onset ~2 weeks ago. Pain is located L side, described as tight/sharp, and rated an 8/10, per triage. Assoc. Sx: cough, SOB, CP, hearing difficulties. She reports having a pounding heartbeat that she hears in her ears making it difficult to hear others. Patient also states that nebulizer failed to alleviate her chest pain. PMHx: CAD, COPD. SHx: former smoker: quit 1.5 years ago. I, Dr. Melendrez, personally performed the services described in this documentation as scribed in my presence and it is both accurate and complete. - History of Current Complaint Chief Complaint: EDChestWallPain Time Seen by Provider: 12/23/17 15:03 Hx Obtained From: Patient Onset/Duration: Started Weeks Ago - 2 weeks Timing: Constant Current Severity: Severe Pain Intensity: 8 Pain Scale Used: 0-10 Numeric Chest Pain Location: Left Anterior Chest Pain Radiates: No Character: Sharp/Stabbing, Tightness Alleviating Factor(s): Nothing Associated Signs and Symptoms: Positive: Chest Pain, Shortness of Breath, Cough , Other: - POS: trouble hearing. - Additional Pertinent History Primary Care Physician: [id number] - Allergy/Home Medications Allergies/Adverse Reactions: Allergies Allergy/AdvReac Type Severity Reaction Status Date / Time desvenlafaxine [From Pristiq] Allergy Unknown Verified 12/23/17 14:50 Reaction Details amoxicillin [From Augmentin] AdvReac GI Upset Verified 12/23/17 16:40 aripiprazole AdvReac GI Upset Verified 12/23/17 16:40 clavulanic acid AdvReac GI Upset Verified 12/23/17 16:40 [From Augmentin] lactose AdvReac GI Upset Verified 12/23/17 16:40 mirtazapine [From Remeron] AdvReac GI Upset Verified 12/23/17 16:40 PMH/Surg Hx/FS Hx/Imm Hx Endocrine/Hematology History: Denies: Hx Diabetes, Hx Thyroid Disease Cardiovascular History: Reports: Hx Deep Vein Thrombosis Denies: Hx Angina, Hx Coronary Artery Disease, Hx Hypercholesterolemia, Hx Hypertension, Hx Myocardial Infarction, Hx Valvular Heart Disease Respiratory History: Reports: Hx Chronic Obstructive Pulmonary Disease (COPD), Hx Pulmonary Embolism, Other Respiratory Problems/Disorders - hx bronchitis Denies: Hx Asthma GI History: Reports: Hx Diverticulosis Denies: Hx Ulcer History: Denies: Hx Renal Disease Sensory History: Reports: Hx Contacts or Glasses Denies: Hx Hearing Aid Opthamlomology History: Reports: Hx Contacts or Glasses Neurological History: Reports: Hx Migraine Comment Only: Other Neuro Impairments/Disorders - insomnia Psychiatric History: Reports: Hx Anxiety, Hx Depression - Cancer History Cancer Type, Location and Year: ibs - Surgical History Surgery Procedure, Year, and Place: tubal ligation, appendectomy - Immunization History Date of Tetanus Vaccine: unknown Date of Influenza Vaccine: none Infectious Disease History: No Infectious Disease History: Denies: Hx Clostridium Difficile, Hx Hepatitis, Hx Human Immunodeficiency Virus (HIV), Hx of Known/Suspected MRSA, Hx Shingles, Hx Tuberculosis, Hx Known/ Suspected VRE, Hx Known/Suspected VRSA, History Other Infectious Disease, Traveled Outside the [place] in Last 30 Days - Family History Known Family History: Positive: Respiratory Disease - COPD (Emphysema) Negative: Cardiac Disease Family History: FHx of COPD and emphysema - Social History Occupation: Employed Full-time Lives: With Family Alcohol Use: None Substance Use Type: Reports: None Hx Tobacco Use: Yes Smoking Status (MU): Current Some Day Smoker Type: Cigarettes Amount Used/How Often: 1/4 packs a day Have You Smoked in the Last Year: Yes Review of Systems Positive: Other - POS: hearing difficulties. Positive: Chest Pain Positive: Shortness Of Breath, Cough All Other Systems Reviewed And Are Negative: Yes Physical Exam - Summary Physical Exam Summary: Appearance: Well appearing, no pain distress Skin: warm, dry, reflects adequate perfusion Head/face: normal Eyes: EOMI, EVELYN ENT: normal, mucous membranes moist. Neck: supple, non-tender Respiratory: Diminished breath sounds, (-) rales, (-) rhonchi. Cardiovascular: RRR, pulses symmetrical Abdomen: non-tender, soft Bowel Sounds: present Musculoskeletal: normal, strength/ROM intact Neuro: normal, sensory motor intact, A&Ox3 Extremeties: (-) LE edema Triage Information Reviewed: Yes Vital Signs On Initial Exam: Initial Vitals Temp Pulse Resp BP Pulse Ox 96.1 F 87 24 143/70 94 08/18/18 14:51 12/23/17 14:51 12/23/17 14:51 12/23/17 14:51 12/23/17 14:51 Vital Signs Reviewed: Yes Diagnostics - Vital Signs Vital Signs Temp Pulse Resp BP Pulse Ox 12/23/17 14:51 96.1 F 87 24 143/70 94 - Laboratory Result Diagrams: 12/23/17 15:24 12/23/17 15:24 Lab Statement: Any lab studies that have been ordered have been reviewed, and results considered in the medical decision making process. - Radiology CXR Xray Interpretation: No Acute Changes - IMPRESSION: no active cardiopulmonary disease. Radiology Interpretation Completed By: Radiologist - Report has been reviewed by provider and radiologist. - CT Chest/thorax CTA CT Interpretation: Positive (See Comments) - IMPRESSION: NO PULMONARY ARTERIAL FILLING DEFECT TO SUGGEST PULMONARY EMBOLISM. THERE IS A COMPRESSION FRACTURE OF T9, NEW WHEN COMPARED TO JUNE 12, 2017, WITHOUT OSSEOUS RETROPULSION. EMPHYSEMA. PATCHY AIRSPACE DISEASE OF THE RIGHT LUNG APEX. CT Interpretation Completed By: Radiologist - Report has been reviewed by provider and radiologist. - EKG 1459 Cardiac Rate: NL - 85 bpm EKG Rhythm: Sinus Rhythm ST Segment: Normal EKG Interpretation: nml axis, nml interval, Baseline artifact seen in V3-V6 Re-Evaluation - Re-Evaluation First Eval Re-Evaluation Time: 17:26 Change: Improved Comment: Patient is feeling much better and will be D/C home. 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 Chest Pain Course/Dx - Course Course Of Treatment: Patient with a history of COPD and also now with left- sided chest pain that is sharp in nature and in the left low lateral chest. No infiltrates on x-ray. D-dimer is modestly elevated. A CT was performed which showed no infiltrate or pulmonary emboli. There is a compression fracture at T9. The patient has been reporting some discomfort in her back mostly with standing at her new job. She does have kyphosis and this is likely the cause. There is no history for trauma. Troponins are 0. EKG has nondiagnostic ST segments. She will be treated symptomatically and will follow-up with her primary care physician. She is also treated for COPD exacerbation with steroids , antibiotic. - Chest Pain Differential Diagnosis/HQI/PQRI: Acute NE, ACS, Angina, CHF, Chest Wall, Lower Respiratory Infection, Pulmonary Edema, Pulmonary Embolism - Diagnoses Provider Diagnoses: COPD with acute exacerbation, Atypical chest pain, Compression fracture Discharge - Sign-Out/Discharge Documenting (check all that apply): Patient Departure - Discharge Plan Condition: Improved Disposition: HOME Prescriptions: Albuterol HFA INHALER* [Ventolin HFA Inhaler*] 1 puff INH Q4H PRN #1 mdi PRN Reason: Shortness Of Breath Azithromycin TAB* [Zithromax TAB (Z-FELTON) 250 mg #6 tabs] 250 mg PO DAILY #4 tab Meloxicam [Mobic] 7.5 mg PO DAILY PRN #30 tablet PRN Reason: Pain predniSONE TAB* [Deltasone TAB*] 50 mg PO DAILY #4 tab Patient Education Materials: Chest Pain (ED), Vertebral Compression Fracture ( ED), COPD (Chronic Obstructive Pulmonary Disease) (ED) Forms: *Work Release Referrals: John Trujillo MD [Primary Care Provider] - 3 Days Additional Instructions: Use inhaler or breathing treatments every 4 hours until well. Humidifier Y sleep. Avoid smoke and smokers. Return if fever, worsening, increased chest pain or other concerns as discussed. - Billing Disposition and Condition Condition: IMPROVED Disposition: Home
[2017-12-23] MEDS ORDERED: predniSONE TAB* 20 MG PO ONE (15:11)
[2017-12-23] MEDS ORDERED: Albuterol/Ipratropium NEB.SOL* Albuterol 2.5 MG/Ipratropium 0.5 MG 3 ML INH ONE (15:11)
--- NOTE | 2017-12-23 15:33 | RAD ---
HISTORY: SOB/CP COMPARISONS: June 12, 2017 VIEWS: 1: frontal portable view of the chest at 3:15 PM FINDINGS: LINES AND TUBES: None. CARDIOMEDIASTINAL SILHOUETTE: The cardiomediastinal silhouette is normal for portable technique. PLEURA: The costophrenic angles are sharp. No pleural abnormalities are noted. LUNG PARENCHYMA: The lungs are clear. ABDOMEN: The upper abdomen is clear. There is no subphrenic gas. BONES AND SOFT TISSUES: No bone or soft tissue abnormalities are noted. IMPRESSION: NO ACTIVE CARDIOPULMONARY DISEASE.
[2017-12-23 15:38] LABS: ABS Basophils 0.1 10^3/ul (0-0.2); ABS Eosinophils 0.5 10^3/ul (0-0.6); ABS Lymphocytes 1.8 10^3/ul (1.0-4.8); ABS Monocytes 0.5 10^3/ul (0-0.8); ABS Neutrophils 4.5 10^3/ul (1.5-7.7); ABS Nucleated RBC 0 10^3/ul; Eosinophil % 6.5 % (0-6); Hematocrit 34 % (35-47); Hemoglobin 11.7 g/dl (12.0-16.0); Mean Corpuscular HGB Conc 34 g/dl (31-36); Mean Corpuscular Hemoglobin 31 pg (27-31); Mean Corpuscular Volume 90 fL (80-97); Nucleated Red Blood Cells % 0; Platelet Count 252 10^3/ul (150-450); Red Blood Count 3.81 10^6/ul (4.00-5.40); Red Cell Distribution Width 15 % (10.5-15); White Blood Count 7.4 10^3/ul (3.5-10.8)
[2017-12-23 15:44] LABS: INR 0.98 (0.77-1.02)
[2017-12-23 15:47] LABS: EGFR Non-African American 71.5 (>60)
[2017-12-23] MEDS ORDERED: Iohexol 350* (CONTRAST) 500 ML MDV IV ONE (16:26)
--- NOTE | 2017-12-23 17:31 | RAD ---
HISTORY: L sided CP, SOB, elevated ddimer COMPARISONS: April 25, 2017, June 12, 2017 chest x-ray TECHNIQUE: Multiple contiguous axial CT scans of the chest were obtained after the administration of nonionic intravenous contrast, timed to the pulmonary arterial phase of contrast enhancement.. Coronal and sagittal multiplanar reformations are also submitted for review. FINDINGS: NECK AND THYROID: The lower neck and thyroid are unremarkable. CHEST WALL: There is no lower cervical, axillary, or supraclavicular lymphadenopathy by size criteria. HEART AND PERICARDIUM: The heart is unremarkable. AORTA AND PULMONARY VASCULATURE: There is no pulmonary arterial filling defect to suggest pulmonary embolism. There is no linear filling defect within the aorta to suggest aortic dissection. MEDIASTINUM: There is no mediastinal lymphadenopathy by size criteria. CANDE: There is no hilar lymphadenopathy by size criteria. AIRWAY AND ESOPHAGUS: The airway is unremarkable, without endobronchial filling defect. The esophagus is grossly normal. LUNG PARENCHYMA: There is patchy ground glass opacification of the right lung apex. There is centrilobular emphysematous change. PLEURA: No pleural abnormalities are noted. UPPER ABDOMEN: The upper abdomen is unremarkable. BONES AND SOFT TISSUES: There is been interval development of a compression deformity of T9. There is no osseous retropulsion. OTHER: None. IMPRESSION: 1. NO PULMONARY ARTERIAL FILLING DEFECT TO SUGGEST PULMONARY EMBOLISM. 2. THERE IS A COMPRESSION FRACTURE OF T9, NEW WHEN COMPARED TO JUNE 12, 2017, WITHOUT OSSEOUS RETROPULSION. 3. EMPHYSEMA. 4. PATCHY AIRSPACE DISEASE OF THE RIGHT LUNG APEX.
[2017-12-23 17:58] VITALS: BP 134/63
== END 2017-12-23 17:57 | disposition home or self-care (01) ==
LOC: ED 14:34
DX: J44.1 Chronic obstructive pulmonary disease with (acute) exacerbation (principal); R07.89 Other chest pain; S22.070A Wedge compression fracture of T9-T10 vertebra, initial encounter for closed fracture; X58.XXXA Exposure to other specified factors, initial encounter; Y93.9 Activity, unspecified; Y92.9 Unspecified place or not applicable; Z88.1 Allergy status to other antibiotic agents; Z88.0 Allergy status to penicillin; Z88.8 Allergy status to other drugs, medicaments and biological substances
CPT/HCPCS: 36415; 71045; 71275; 80053; 83605; 83880; 84484; 85025; 85379; 85610; 93005; 99283; A9270-GY; J7512; Q9967

== ENCOUNTER 2018-02-05 18:05 | Emergency (ER) | payer SELFPAY ==
[2018-02-05] MEDS ORDERED: predniSONE TAB* 20 MG PO ONE (21:45)
[2018-02-05] MEDS ORDERED: Albuterol/Ipratropium NEB.SOL* Albuterol 2.5 MG/Ipratropium 0.5 MG 3 ML INH ONE ×3 (21:45→22:27)
--- NOTE | 2018-02-05 22:11 | ED ---
Respiratory - HPI Summary HPI Summary: Patient complains of productive cough, feeling alternately hot then chills 1 week, wheezing and SOB 3 days. Patient has done 3 albuterol neb treatments at home, an inhaler onc. Without relief. Patient medical history is COPD, CAD with one cardiac stent. Former smoker, quit 1 year ago. - History of Current Complaint Chief Complaint: EDUpperRespComplaint Stated Complaint: DIFFICULTY BREATHING Time Seen by Provider: 02/05/18 21:44 Hx Obtained From: Patient Onset/Duration: Gradual Onset Timing: Constant Initial Severity: Mild Current Severity: Mild Pain Intensity: 3 Character: Wheezing, Cough (Productive) Sputum Amount: None Sputum Color: Yellow Aggravating Factor(s): Nothing Alleviating Factor(s): Nothing Associated Signs and Symptoms: SOB, Wheezing, Chills - Allergy/Home Medications Allergies/Adverse Reactions: Allergies Allergy/AdvReac Type Severity Reaction Status Date / Time desvenlafaxine [From Pristiq] Allergy Unknown Verified 02/05/18 18:11 Reaction Details amoxicillin [From Augmentin] AdvReac GI Upset Verified 02/05/18 18:11 aripiprazole AdvReac GI Upset Verified 02/05/18 18:11 clavulanic acid AdvReac GI Upset Verified 02/05/18 18:11 [From Augmentin] lactose AdvReac GI Upset Verified 02/05/18 18:11 mirtazapine [From Remeron] AdvReac GI Upset Verified 02/05/18 18:11 Home Medications: Home Medications Albuterol 2.5MG/3ML (0.083%)* [Ventolin 2.5 MG/3 ML NEB.VIKKI*] 2.5 mg INH Q4H PRN 02/05/18 [History Confirmed 02/05/18] Dicyclomine CAP* [Bentyl CAP*] 10 mg PO BID 02/05/18 [History Confirmed 02/05/18 ] PMH/Surg Hx/FS Hx/Imm Hx Endocrine/Hematology History: Denies: Hx Diabetes, Hx Thyroid Disease Cardiovascular History: Reports: Hx Deep Vein Thrombosis Denies: Hx Angina, Hx Coronary Artery Disease, Hx Hypercholesterolemia, Hx Hypertension, Hx Myocardial Infarction, Hx Valvular Heart Disease Respiratory History: Reports: Hx Chronic Obstructive Pulmonary Disease (COPD), Hx Pulmonary Embolism, Other Respiratory Problems/Disorders - hx bronchitis Denies: Hx Asthma GI History: Reports: Hx Diverticulosis Denies: Hx Ulcer History: Denies: Hx Renal Disease Sensory History: Reports: Hx Contacts or Glasses Denies: Hx Hearing Aid Opthamlomology History: Reports: Hx Contacts or Glasses Neurological History: Reports: Hx Migraine Comment Only: Other Neuro Impairments/Disorders - insomnia Psychiatric History: Reports: Hx Anxiety, Hx Depression - Cancer History Cancer Type, Location and Year: ibs - Surgical History Surgery Procedure, Year, and Place: tubal ligation, appendectomy - Immunization History Date of Tetanus Vaccine: unknown Date of Influenza Vaccine: none Infectious Disease History: No Infectious Disease History: Denies: Hx Clostridium Difficile, Hx Hepatitis, Hx Human Immunodeficiency Virus (HIV), Hx of Known/Suspected MRSA, Hx Shingles, Hx Tuberculosis, Hx Known/ Suspected VRE, Hx Known/Suspected VRSA, History Other Infectious Disease, Traveled Outside the in Last 30 Days - Family History Known Family History: Positive: Respiratory Disease - COPD (Emphysema) Negative: Cardiac Disease Family History: FHx of COPD and emphysema - Social History Alcohol Use: None Substance Use Type: Reports: None Hx Tobacco Use: Yes Smoking Status (MU): Former Smoker Type: Cigarettes Amount Used/How Often: 1/4 packs a day Have You Smoked in the Last Year: Yes Review of Systems Positive: Fever, Chills Eyes: Negative ENT: Negative Cardiovascular: Negative Positive: Shortness Of Breath, Cough Gastrointestinal: Negative Genitourinary: Negative Musculoskeletal: Negative Skin: Negative Neurological: Negative Psychological: Normal All Other Systems Reviewed And Are Negative: Yes Physical Exam Triage Information Reviewed: Yes Vital Signs On Initial Exam: Initial Vitals Temp Pulse Resp BP Pulse Ox 96.8 F 115 22 144/98 94 02/05/18 18:11 02/05/18 18:11 02/05/18 18:11 02/05/18 18:11 02/05/18 18:11 Vital Signs Reviewed: Yes Appearance: Positive: Well-Appearing Skin: Positive: Warm Head/Face: Positive: Normal Head/Face Inspection Eyes: Positive: Normal ENT: Positive: Normal ENT inspection Neck: Positive: Supple Respiratory/Lung Sounds: Positive: Wheezes - Bilaterally Cardiovascular: Positive: Normal Abdomen Description: Positive: Nontender Musculoskeletal: Positive: Normal Neurological: Positive: Normal Psychiatric: Positive: Normal AVPU Assessment: Alert - [place] Coma Scale Best Eye Response: 4 - Spontaneous Best Motor Response: 6 - Obeys Commands Best Verbal Response: 5 - Oriented Coma Scale Total: 15 Diagnostics - Vital Signs Vital Signs Temp Pulse Resp BP Pulse Ox 02/05/18 21:47 115 32 121/90 95 02/05/18 21:43 115 24 93 02/05/18 20:37 97.6 F 109 24 116/69 94 02/05/18 18:11 96.8 F 115 22 144/98 94 - Laboratory Lab Statement: Any lab studies that have been ordered have been reviewed, and results considered in the medical decision making process. - Radiology cxr Xray Interpretation: No Acute Changes Radiology Interpretation Completed By: ED Physician Disposition - Course Course Of Treatment: Patient complains of productive cough, feeling alternately hot then chills 1 week, wheezing and SOB 3 days. Patient has done 3 albuterol neb treatments at home, an inhaler onc. Without relief. Patient medical history is COPD, CAD with one cardiac stent. Former smoker, quit 1 year ago. Vital signs at baseline. Chest x-ray negative. Patient significantly improved after 3 DuoNeb's. Started on prednisone 60 mg here in the ED. Rx for prednisone 40 mg 5 days. Rx for Robitussin with codeine. Z- Alex. Physical exam: Wheezing bilaterally. cough. Mildly elevated respiratory rate, mild tachycardia. Chest x-ray hyperinflation otherwise negative. Patient feels significantly improved after 3 DuoNeb's. Lung sounds much improved. Started on prednisone 60 mg here in the ED. Rx for prednisone 40 mg by mouth daily 5 days. Z-Alxe. Robitussin with codeine. - Diagnoses Provider Diagnoses: COPD exacerbation, Cough Discharge - Sign-Out/Discharge Documenting (check all that apply): Patient Departure - Discharge Plan Condition: Stable Disposition: HOME Patient Education Materials: COPD (Chronic Obstructive Pulmonary Disease) (ED) Referrals: John Trujillo MD [Primary Care Provider] - Additional Instructions: Consider asking primary care for a maintenance inhaler. Return to the ED for any new or worsening symptoms. - Billing Disposition and Condition Condition: STABLE Disposition: Home
[2018-02-05] MEDS ORDERED: Albuterol/Ipratropium NEB.SOL* Albuterol 2.5 MG/Ipratropium 0.5 MG 3 ML ONE (22:28)
[2018-02-06] MEDS ORDERED: Azithromycin TAB* 250 MG PO ONE (00:01)
[2018-02-06 00:38] VITALS: BP 128/81
--- NOTE | 2018-02-06 07:45 | RAD ---
INDICATION: Cough, fever, diarrhea. COPD. History of tobacco use. COMPARISON: December 23, 2017 CT chest. TECHNIQUE: Dual energy PA and routine lateral views of the chest were obtained. REPORT: Elevated lung volumes and rarefaction of the interstitial markings. No focal pulmonary lesion, compelling alveolar consolidation, pleural effusion, pneumothorax. The heart, pulmonary vasculature, and mediastinal contours are unremarkable. T9 anterior and middle column compression fracture is chronic. IMPRESSION: #. Stigmata of obstructive lung disease. No acute pulmonary or cardiac process evident. R0
== END 2018-02-06 00:19 | disposition home or self-care (01) ==
LOC: ED 18:05
DX: J44.1 Chronic obstructive pulmonary disease with (acute) exacerbation (principal); R06.02 Shortness of breath; R06.2 Wheezing; R05 Cough; Z87.891 Personal history of nicotine dependence
CPT/HCPCS: 71046; 99283; A9270-GY; J7512

== ENCOUNTER 2018-10-01 19:16 | Observation (INO) | payer SELFPAY ==
[2018-10-01] MEDS ORDERED: Albuterol/Ipratropium NEB.SOL* Albuterol 2.5 MG/Ipratropium 0.5 MG 3 ML INH ONE (20:24)
[2018-10-01] MEDS ORDERED: traMADol TAB* 50 MG PO ONE (20:27)
[2018-10-01] MEDS ORDERED: predniSONE TAB* 20 MG PO ONE (20:27)
--- NOTE | 2018-10-01 20:27 | ED ---
Shortness of Breath - HPI Summary HPI Summary: Pt is a 68 y/o F presenting to the ED with a chief complaint of shortness of breath. She states her sx onset this morning and have gotten worse throughout the day, including L hand and arm tingling, CARRILLO behind her L ear and down her neck, squeezing through her anterior and lateral chest, nonproductive cough, SOB , lightheadedness with standing, and chills. She denies fever. She notes hx of cardiac stent and COPD. - History of Current Complaint Chief Complaint: EDGeneral Time Seen by Provider: 10/01/18 19:36 Hx Obtained From: Patient Onset/Duration: Gradual Onset, Lasting Hours, Still Present Timing: Constant Current Severity: Moderate Dyspnea At: Rest Aggrevating Factors: Nothing Alleviating Factors: Nothing Associated Signs & Symptoms: Cough (Nonproductive), Chills - Allergy/Home Medications Allergies/Adverse Reactions: Allergies Allergy/AdvReac Type Severity Reaction Status Date / Time desvenlafaxine [From Pristiq] Allergy Unknown Verified 10/01/18 19:22 Reaction Details amoxicillin [From Augmentin] AdvReac GI Upset Verified 10/01/18 19:22 aripiprazole AdvReac GI Upset Verified 10/01/18 19:22 clavulanic acid AdvReac GI Upset Verified 10/01/18 19:22 [From Augmentin] lactose AdvReac GI Upset Verified 10/01/18 19:22 mirtazapine [From Remeron] AdvReac GI Upset Verified 10/01/18 19:22 Home Medications: Home Medications buPROPion HCl [Bupropion Xl] 1 tab PO DAILY 10/01/18 [History Confirmed 10/01/18 ] PMH/Surg Hx/FS Hx/Imm Hx Previously Healthy: No Endocrine/Hematology History: Denies: Hx Diabetes, Hx Thyroid Disease Cardiovascular History: Reports: Hx Deep Vein Thrombosis, Other Cardiovascular Problems/Disorders - cardiac stent Denies: Hx Angina, Hx Coronary Artery Disease, Hx Hypercholesterolemia, Hx Hypertension, Hx Myocardial Infarction, Hx Valvular Heart Disease Respiratory History: Reports: Hx Chronic Obstructive Pulmonary Disease (COPD), Hx Pulmonary Embolism, Other Respiratory Problems/Disorders - hx bronchitis Denies: Hx Asthma GI History: Reports: Hx Diverticulosis Denies: Hx Ulcer History: Denies: Hx Renal Disease Sensory History: Reports: Hx Contacts or Glasses Denies: Hx Hearing Aid Opthamlomology History: Reports: Hx Contacts or Glasses Neurological History: Reports: Hx Migraine Comment Only: Other Neuro Impairments/Disorders - insomnia Psychiatric History: Reports: Hx Anxiety, Hx Depression - Cancer History Cancer Type, Location and Year: ibs - Surgical History Surgery Procedure, Year, and Place: tubal ligation, appendectomy - Immunization History Date of Tetanus Vaccine: unknown Date of Influenza Vaccine: none Immunizations Up to Date: Yes Infectious Disease History: No Infectious Disease History: Denies: Hx Clostridium Difficile, Hx Hepatitis, Hx Human Immunodeficiency Virus (HIV), Hx of Known/Suspected MRSA, Hx Shingles, Hx Tuberculosis, Hx Known/ Suspected VRE, Hx Known/Suspected VRSA, History Other Infectious Disease, Traveled Outside the [place] in Last 30 Days - Family History Known Family History: Positive: Respiratory Disease - COPD (Emphysema) Negative: Cardiac Disease Family History: FHx of COPD and emphysema - Social History Alcohol Use: None Hx Substance Use: No Substance Use Type: Reports: None Hx Tobacco Use: Yes Smoking Status (MU): Former Smoker Type: Cigarettes Amount Used/How Often: 1/4 packs a day Have You Smoked in the Last Year: Yes Review of Systems Positive: Chills. Negative: Fever Positive: Other - neck pain Positive: Chest Pain Positive: Shortness Of Breath, Cough Neurological: Other - lightheaded with standing Positive: Headache, Paresthesia - L hand/arm tingling All Other Systems Reviewed And Are Negative: Yes Physical Exam - Summary Physical Exam Summary: Appearance: Well appearing, no pain distress Skin: warm, dry, reflects adequate perfusion Head/face: normal Eyes: EOMI, EVELYN ENT: normal Neck: supple, tenderness over L side of neck Respiratory: CTA, breath sounds present Cardiovascular: RRR, pulses symmetrical Abdomen: non-tender, soft Musculoskeletal: normal, strength/ROM intact Neuro: normal, sensory motor intact, A&Ox3 Triage Information Reviewed: Yes Vital Signs On Initial Exam: Initial Vitals Temp Pulse Resp BP Pulse Ox 98.4 F 84 24 117/71 96 10/01/18 19:19 10/01/18 19:19 10/01/18 19:19 10/01/18 19:19 10/01/18 19:19 Vital Signs Reviewed: Yes - [place] Coma Scale Best Eye Response: 4 - Spontaneous Best Motor Response: 6 - Obeys Commands Best Verbal Response: 5 - Oriented Coma Scale Total: 15 Diagnostics - Vital Signs Vital Signs Temp Pulse Resp BP Pulse Ox 10/01/18 19:19 98.4 F 84 24 117/71 96 - Laboratory Result Diagrams: 10/02/18 06:13 10/02/18 06:13 Lab Statement: Any lab studies that have been ordered have been reviewed, and results considered in the medical decision making process. - Radiology CXR Radiology Interpretation Completed By: ED Physician Summary of Radiographic Findings: No acute process. Pending official radiology report. - EKG 2041 Cardiac Rate: NL - 70bpm EKG Rhythm: Sinus Rhythm ST Segment: Normal Ectopy: None Summary of EKG Findings: EKG at 2041 shows NSR at 70bpm with no STEMI, in comparison with 12/23/17. Re-Evaluation - Re-Evaluation 1st re-eval Re-Evaluation Time: 21:57 Change: Unchanged Comment: Pt is still complaining of chest pain. Course/Dx - Course Course Of Treatment: Pt is a 68 y/o F presenting to the ED with a chief complaint of shortness of breath. She states her sx onset this morning and have gotten worse throughout the day, including L hand and arm tingling, CARRILLO behind her L ear and down her neck, squeezing through her anterior and lateral chest, nonproductive cough, SOB, lightheadedness with standing, and chills. She denies fever. EKG at 2041 shows NSR at 70bpm with no STEMI, in comparison with . CXR shows no acute process, pending official radiology report. Pt will be admitted to [facility] with a dx of chest pain, rule out TX under Dr. Murillo as of 2209. - Diagnoses Differential Diagnosis/HQI/PQRI: Positive: Bronchitis, CHF, Chest Wall Pain, TX , Pneumonia, Pulmonary Edema, Unstable Angina Provider Diagnoses: Chest pain, rule out acute myocardial infarction - Physician Notifications Instructed by Provider To: Admit As Inpatient Discharge - Sign-Out/Discharge Documenting (check all that apply): Patient Departure - Discharge Plan Condition: Stable Disposition: ADMITTED TO [facility] - Billing Disposition and Condition Condition: STABLE Disposition: Admitted to [facility] - Attestation Statements Document Initiated by Scribe: Yes Documenting Scribe: Aurelia Morgan Provider For Whom Scribe is Documenting (Include Credential): Grant Beckett MD. Scribe Attestation: I, Aurelia Morgan, scribed for Grant Beckett MD. on 10/02/18 at 1037. Scribe Documentation Reviewed: Yes Provider Attestation: The documentation as recorded by the florentinibe, Aurelia Morgan accurately reflects the service I personally performed and the decisions made by me, Grant Beckett MD. Status of Scribe Document: Viewed Consult Consult: [id number] - I spoke with Dr. Murillo who will be accepting the pt to [facility] with a dx of chest pain, rule out TX. She is stable and agreeable with this plan.
[2018-10-01 20:52] LABS: ABS Basophils 0.1 10^3/ul (0-0.2); ABS Eosinophils 0.1 10^3/ul (0-0.6); ABS Lymphocytes 3.1 10^3/ul (1.0-4.8); ABS Monocytes 0.5 10^3/ul (0-0.8); ABS Neutrophils 4.1 10^3/ul (1.5-7.7); Eosinophil % 1.7 %; Hematocrit 37 % (35-47); Hemoglobin 12.5 g/dL (12.0-16.0); Lymphocyte % 38.9 %; Mean Corpuscular HGB Conc 34 g/dL (31-36); Mean Corpuscular Hemoglobin 31 pg (27-31); Mean Corpuscular Volume 91 fL (80-97); Mean Platelet Volume 7.5 fL (7.4-10.4); Platelet Count 268 10^3/uL (150-450); Red Blood Count 4.08 10^6 /uL (3.70-4.87); Red Cell Distribution Width 14 % (10.5-15); White Blood Count 7.9 10^3/uL (3.5-10.8)
[2018-10-01 21:06] LABS: Activated Partial Thrombo Time 30.1 seconds (26.0-36.3); INR 1.01 (0.82-1.09)
[2018-10-01 21:16] LABS: Albumin 4.1 g/dL (3.2-5.2); Albumin/Globulin Ratio 1.6 (1-3); BUN/Creatinine Ratio 22.1 (8-20); Calcium 9.1 mg/dL (8.6-10.3); EGFR African American 79.4 (>60); EGFR Non-African American 65.6 (>60); Globulin 2.5 g/dL (2-4); Potassium 3.8 mmol/L (3.5-5.0); Total Bilirubin 0.2 mg/dL (0.2-1.0); Total Protein 6.6 g/dL (6.4-8.9)
[2018-10-01] MEDS ORDERED: Aspirin 81 mg CHEW TAB* 81 MG TAB.CHEW PO ONE (21:59)
[2018-10-01] MEDS ORDERED: traZODone TAB* 50 MG TAB PO PRN (23:40)
[2018-10-01] MEDS ORDERED: SUMAtriptan SQ* 6 MG/0.5 ML VIAL SUBCUT PRN (23:40)
[2018-10-01] MEDS ORDERED: Nitroglycerin TAB 0.4 MG* 0.4 MG TAB SL PRN (23:40)
[2018-10-01] MEDS ORDERED: Albuterol HFA INHALER* 8 gm MDI INH PRN (23:40)
[2018-10-01] MEDS ORDERED: guaiFENesin/CODIEN 100MG-10MG* 5 ML UDC PO PRN (23:40)
[2018-10-01] MEDS ORDERED: Cyclobenzaprine TAB* 10 MG PO PRN (23:40)
[2018-10-01] MEDS ORDERED: Albuterol 2.5 MG/3 ML NEB.SOL* (0.083%) INH PRN (23:40)
[2018-10-01] MEDS ORDERED: Enoxaparin(*) 40 MG/0.4 ML SYR SUBCUT SCH (23:45)
[2018-10-01] MEDS ORDERED: Acetaminophen TAB* 325 MG PO PRN (23:49)
[2018-10-02] MEDS ORDERED: Morphine INJ* 2 MG/ML 1 ML SYRINGE (TWO MG - NEW SYRINGE VERSION) IV PRN (01:09)
[2018-10-02] MEDS ORDERED: Nitroglycerin TAB 0.4 MG* 0.4 MG TAB SL PRN (01:09)
--- NOTE | 2018-10-02 01:40 | HP ---
ADMITTING HISTORY AND PHYSICAL: DATE OF ADMISSION: 10/01/18 CHIEF COMPLAINT: Atypical chest pain and possible slight shortness of breath. HISTORY OF PRESENT ILLNESS: The patient is a 68-year-old lady with history of CAD, status post CABG, COPD as well as depression, who mentioned that she was in her usual state of health until 1 day prior to admission where she mentioned that she has had some dry cough, but attributed to just her allergies. This morning she mentioned that she started having some neck pain more on the left side that then radiated to her left arm and hand with some tingling sensation. She also noted some headache behind her left ear as well as her left neck pain as described. She mentioned some squeezing discomfort around her anterior and lateral chest as well and some mild shortness of breath , lightheadedness with standing, but denied any fevers or chills. Persistence of her signs and symptoms led to her presentation in the ED, at which point she was given DuoNeb as well as 324 mg of aspirin. On review of systems, she mentioned that her chest discomfort has subsided and improved along with her shortness of breath and in fact she no longer feels short of breath. Mentioned that most of her symptoms including her headache has improved and that the neck pain along with her other pain just described are exacerbated by movement of her neck from side to side on either side. Denies any current headaches, dizziness, fevers, chills, nausea, vomiting, shortness of breath, abdominal pain , diarrhea, constipation, pain, and her increased frequency and urination, myalgias, arthralgias, throat pain, or new skin lesions. Rest of the 14-point review of systems are otherwise unremarkable. PAST MEDICAL AND SURGICAL HISTORY: Anxiety; depression; insomnia; back pain; migraines; coronary artery disease, status post CABG with stent; history of COPD and mentioned that she has quit 2 years ago, however, sometimes she would slip and would smoke about 1 to 2 cigarettes per day, but does not do this every day and has been off of cigarettes for at least a year. She mentions that she does this because of her anxiety, status post history of tubal ligation , appendectomy, and ORIF of left leg. OUTPATIENT MEDICATIONS: 1. Bupropion. 2. Albuterol. 3. Ventolin. 4. Dicyclomine. 5. Cyclobenzaprine. 6. Citalopram. 7. Albuterol. 8. Sumatriptan. 9. Nitroglycerin. 10. Trazodone. 11. Guaifenesin. 12. Codeine. 13. Clonazepam. 14. Zolpidem. ALLERGIES: REMERON, lactose intolerance, AUGMENTIN, PRISTIQ, and ABILIFY. She mentions that she gets hives in all of these medications, however, only AUGMENTIN causes some migraine and nausea. FAMILY HISTORY: Maternal grandmother has cardiomyopathy, maternal grandmother siblings all had heart disease and passed in their 50s and 60s. There is no history of diabetes reported. There is lung cancer in her maternal grandfather. The patient's mother had history of COPD and father of emphysema. SOCIAL HISTORY: The patient has smoked a quarter pack per day or more for at least 45 to 50 years. 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 The patient's daughterErnestine/"Katlyn Nickerson " is her surrogate decision maker and can be reached at [phone]. PHYSICAL EXAMINATION GENERAL APPEARANCE: The patient is awake, alert, and oriented x3, not in acute distress. VITAL SIGNS: Shows the most recent vital signs of records with blood pressure of 107/61, 87 beats per minute heart rate, 22 per minute respiratory rate, saturating at 94% on room air. HEENT: Normocephalic, atraumatic. PERRLA. Extraocular muscles intact. Negative for icterus. Moist oral mucosa. Negative throat erythema. NECK: Soft, supple with no cervical lymphadenopathy. No JVD. HEART: S1, S2 within normal limits. Regular rate and rhythm. No murmurs, rubs , or gallops. CHEST: Clear to auscultation bilaterally. Good air entry. No wheezes, rales, or rhonchi. ABDOMEN: Soft, nondistended, nontender. Normoactive bowel sounds x4 quadrants. EXTREMITIES: No cyanosis, clubbing, or edema. PSYCHIATRIC: No active psychosis, depression, suicidal, or homicidal ideations. SKIN: Warm to touch. DIAGNOSTIC STUDIES/LAB DATA: Most recent and pertinent laboratories drawn show CBC with a WBC of 7.9, H and H of 12.5 and 37, platelets of 268. INR of 1.01. Sodium, potassium were found to be normal along with BUN and creatinine. Troponin is 0. LFTs were found to be normal. Brain CT shows no acute disease. Cervical CT shows mild degenerative left epiphyseal joints from C2 to C4 with no spinal nor foraminal stenosis seen. EKG shows 70 beats per minute sinus rhythm with no ST segment changes and QTc of 46 milliseconds. Chest x-ray shows no acute disease. ASSESSMENT AND PLAN: The patient is a 68-year-old lady with history of coronary artery disease, status post coronary artery bypass graft, chronic obstructive pulmonary disease, and depression being admitted for atypical chest pain and mild shortness of breath likely due to musculoskeletal pain with anxiety. 1. Atypical chest pain. The patient does have significant risk factors for her known coronary artery disease with a calculated JARRET score of 2 with an 8% estimated risk for 14 days of all cause mortality as well as HEART score of 4 despite being an atypical chest pain, we could not rule out that concomitant soft tissue injury and/or muscular sprain given her high risk factors with the possible acute coronary syndrome. We will admit the patient for chest pain and troponins and for cardiac stress test in a.m. We will place the patient on aspirin. Unclear why she is not on antiplatelets and beta blockers. 2. Coronary artery disease, status post coronary artery bypass grafting. We will place the patient on baby aspirin and as mentioned unclear why she is not on any beta blockers at this moment, but possibly due to her blood pressure being in the low side of normal. We will place the patient on [id number] DuoNeb and we will defer with respiratory titration, otherwise, unremarkable as well as chest x- ray with good air entry. 3. Depression, well controlled. Continue citalopram, bupropion, especially in the setting of nicotine craving. 4. Anxiety. Continue clonazepam p.r.n., otherwise stable. 5. Migraine. We will hold off on p.r.n. Sumatriptan at this point given the patient is currently being ruled out for acute coronary syndrome to avoid vas constriction that may affect stress test as well as her coronaries if in fact her chest pain might be due to an atypical angina and we will continue watchful waiting. 6. Insomnia. Continue tramadol, we will hold off on Zolpidem. 7. DVT prophylaxis: We will place the patient on Lovenox. 8. Disposition: As above. [id number]/[facility] #: [id number] MTDD
[2018-10-02] MEDS: Albuterol 2.5 MG/3 ML NEB.SOL* (0.083%) INH SCH ×3 (02:19→11:21)
[2018-10-02 06:23] LABS: ABS Lymphocytes 0.6 10^3/ul (1.0-4.8); ABS Monocytes 0.1 10^3/ul (0-0.8); ABS Neutrophils 6.3 10^3/ul (1.5-7.7); Hematocrit 37 % (35-47); Hemoglobin 12.3 g/dL (12.0-16.0); Mean Corpuscular HGB Conc 33 g/dL (31-36); Mean Corpuscular Hemoglobin 30 pg (27-31); Mean Corpuscular Volume 91 fL (80-97); Mean Platelet Volume 7.3 fL (7.4-10.4); Platelet Count 276 10^3/uL (150-450); Red Blood Count 4.06 10^6 /uL (3.70-4.87); Red Cell Distribution Width 14 % (10.5-15); White Blood Count 6.9 10^3/uL (3.5-10.8)
[2018-10-02 06:45] LABS: Albumin/Globulin Ratio 1.5 (1-3); BUN/Creatinine Ratio 16.9 (8-20); Calcium 9.2 mg/dL (8.6-10.3); EGFR African American 99.1 (>60); EGFR Non-African American 81.9 (>60); Globulin 2.6 g/dL (2-4); Magnesium 1.9 mg/dL (1.9-2.7); Phosphorus 3.2 mg/dL (2.5-5.0); Potassium 3.9 mmol/L (3.5-5.0); Total Bilirubin 0.2 mg/dL (0.2-1.0); Total Protein 6.6 g/dL (6.4-8.9)
--- NOTE | 2018-10-02 07:48 | PN ---
Subjective Date of Service: 10/02/18 Interval History: HD # 2 on 10/02 68 yo F with PMH CAD s/p PCI in 2017 COPD, anxiety admitted for atypical CP Overnight, no acute events, VSS Labs-Normal, trops flat This morning did have stress, results pending, still with mild vice like pain in L side of chest radiates to lower L chest. Unchanged, she says has felt this way in the past with bronchitis. No SOb no wheeze, no cough no GI or other complaints. Objective Active Medications: Acetaminophen (Tylenol Tab*) 650 mg PO Q6H PRN PRN Reason: Pain/Fever Albuterol (Ventolin Hfa Inhaler*) 1 puff INH Q4H PRN PRN Reason: SHORTNESS OF BREATH Albuterol (Ventolin 2.5 Mg/3 Ml Neb.Dali*) 2.5 mg INH RT.[id number]-[id number] AWAKE [facility] Last Admin: 10/02/18 07:10 Dose: 2.5 mg Aspirin (Aspirin 81 Mg Chew Tab*) 81 mg PO DAILY [facility] Bupropion HCl (Wellbutrin Xl *) 150 mg PO DAILY [facility] Citalopram Hydrobromide (Celexa Tab*) 40 mg PO DAILY [facility] Clonazepam (Klonopin Tab(*)) 1 mg PO BID [facility] Cyclobenzaprine HCl (Flexeril Tab*) 5 mg PO BEDTIME PRN PRN Reason: SPASMS - MUSCLE Dicyclomine HCl (Bentyl Cap*) 10 mg PO BID [facility] Enoxaparin Sodium (Lovenox(*)) 40 mg SUBCUT BEDTIME [facility] Last Admin: 10/02/18 01:17 Dose: 40 mg Guaifenesin/Codeine Phosphate (Robitussin Ac 100mg-10mg*) 10 ml PO Q4H PRN PRN Reason: COUGH Morphine Sulfate (Morphine Inj (Syringe))*) 0.5 mg IV Q6H PRN PRN Reason: PAIN - MILD Nitroglycerin (Nitroglycerin Tab 0.4 Mg*) 0.4 mg SL Q5M PRN PRN Reason: ANGINA Prednisone (Deltasone Tab*) 40 mg PO DAILY [facility] Trazodone HCl (Desyrel Tab*) 50 mg PO BEDTIME PRN PRN Reason: INSOMNIA Vital Signs - 8 hr 10/01/18 10/01/18 10/02/18 23:50 23:51 00:00 Temperature Pulse Rate 83 81 81 Respiratory 17 30 22 Rate Blood Pressure 103/69 (mmHg) O2 Sat by Pulse 96 95 95 Oximetry 10/02/18 10/02/18 10/02/18 00:19 00:52 01:50 Temperature 98.1 F 97.7 F Pulse Rate 79 78 81 Respiratory 17 17 16 Rate Blood Pressure 105/56 105/56 102/60 (mmHg) O2 Sat by Pulse 96 96 98 Oximetry 10/02/18 10/02/18 04:00 07:14 Temperature 97.5 F Pulse Rate 88 74 Respiratory 16 14 Rate Blood Pressure 111/62 (mmHg) O2 Sat by Pulse 96 98 Oximetry Oxygen Devices in Use Now: None Appearance: Very pleasant woman in NAD Eyes: No Scleral Icterus Ears/Nose/Mouth/Throat: NL Teeth, Lips, Gums, Clear Oropharnyx Neck: NL Appearance and Movements; NL JVP, Trachea Midline Respiratory: Symmetrical Chest Expansion and Respiratory Effort, - - Distatn but without wheze or rhonchi Cardiovascular: NL Sounds; No Murmurs; No JVD, RRR Abdominal: NL Sounds; No Tenderness; No Distention, No Hepatosplenomegaly Lymphatic: No Cervical Adenopathy, No Axillary Adenopathy Extremities: No Edema Skin: No Rash or Ulcers Neurological: Alert and Oriented x 3 Result Diagrams: 10/02/18 06:13 10/02/18 06:13 Assess/Plan/Problems-Billing Assessment: 68 yo F with PMH CAD s/p PCI in 2017, COPD, anxiety admitted for atypical CP - Patient Problems (1) Chest pain Current Visit: No Status: Acute Code(s): R07.9 - CHEST PAIN, UNSPECIFIED SNOMED Code(s): 17818794 Comment: -Hx PCI in 2017 80% proximal RCA lesion. She is s/p CARLYN placement in 2017 -Will follow up on stress, if negative plan to d/c -Treat with Toradol x 1 to see if benefit (2) Coronary artery disease Current Visit: No Status: Acute Code(s): I25.10 - ATHSCL HEART DISEASE OF [place] CORONARY ARTERY W/O ANG PCTRS SNOMED Code(s): 10829186 Comment: -s/p PCI -Asa, Statin, BB-not optimized on anything except ASA, will place on low dose statin (3) Anxiety Current Visit: Yes Status: Acute Code(s): F41.9 - ANXIETY DISORDER, UNSPECIFIED SNOMED Code(s): 59967345 Comment: -Home medications (4) Bronchitis Current Visit: No Status: Acute Code(s): J40 - BRONCHITIS, NOT SPECIFIED ACUTE OR CHRONIC SNOMED Code(s): 66416217 Comment: -Started on pred and bronchodialotrs, no abx (5) Tobacco abuse Current Visit: No Status: Acute Code(s): Z72.0 - TOBACCO USE SNOMED Code(s ): 547654754 Comment: -Pt advised to quit smoking and avoid second hand smoke. (6) DVT prophylaxis Current Visit: No Status: Acute Code(s): IID7202 - SNOMED Code(s): 807704745 Comment: -Lovenox (7) Full code status Current Visit: No Status: Acute Code(s): Z78.9 - OTHER SPECIFIED HEALTH STATUS SNOMED Code(s): 433798365 Status and Disposition: Likely able to d/c
[2018-10-02 07:59] VITALS: BP 115/58
[2018-10-02] MEDS ORDERED: BuPROPion XL* 150 MG TAB.XL PO SCH (09:00)
[2018-10-02] MEDS ORDERED: Aspirin 81 mg CHEW TAB* 81 MG TAB.CHEW PO SCH (09:00)
[2018-10-02] MEDS ORDERED: clonazePAM TAB(*) 1 MG PO SCH (09:00)
[2018-10-02] MEDS ORDERED: predniSONE TAB* 20 MG PO SCH (09:00)
[2018-10-02] MEDS ORDERED: Citalopram TAB* 40 MG PO SCH (09:00)
[2018-10-02] MEDS ORDERED: Dicyclomine CAP* 10 MG PO SCH (09:00)
[2018-10-02] MEDS ORDERED: Regadenoson* 0.4 MG/5 ML SYRINGE ONE (10:41)
[2018-10-02] MEDS ORDERED: Ketorolac INJ* 60 MG/2 ML VIAL IV PUSH ONE (11:39)
[2018-10-02] MEDS ORDERED: Atorvastatin* 10 MG TAB PO SCH (12:00)
--- NOTE | 2018-10-02 16:10 | DS ---
CC: Dr. John Trujillo DISCHARGE SUMMARY: DATE OF ADMISSION: 10/01/18 DATE OF DISCHARGE: 10/02/18 PRIMARY CARE PROVIDER: Dr. John Trujillo. PRIMARY DIAGNOSIS: Atypical chest pain. SECONDARY DIAGNOSIS: 1. Coronary artery disease with known prior CARLYN in 2017. 2. Anxiety. 3. Bronchitis. 4. Infrequent tobacco use disorder. 5. Chronic obstructive pulmonary disease. MEDICATIONS ON DISCHARGE: 1. Aspirin 81 mg p.o. daily. 2. Atorvastatin 10 mg p.o. q.h.s. 3. Albuterol nebs 2.5 mg inhaled q.4 hours p.r.n. for shortness of breath. 4. Albuterol inhaler 1 puff inhaled q. 4 hours p.r.n. for shortness of breath. 5. Bupropion 150 mg extended release p.o. daily. 6. Citalopram 40 mg p.o. daily. 7. Clonazepam 1 mg p.o. b.i.d. 8. Cyclobenzaprine 5 to 10 mg p.o. q.h.s. p.r.n. for muscle spasm. 9. Dicyclomine 10 mg p.o. b.i.d. 10. Guaifenesin-codeine syrup 100 mg/10 mg 10 mL p.o. q.4 hours p.r.n. for max of 3 days. 11. Nitroglycerin 0.4 mg tab q.5 minutes p.r.n. for chest pain. 12. Prednisone 40 mg p.o. daily x3 days. 13. Sumatriptan 6 mg subcutaneous p.r.n. for migraine headaches. 14. Trazodone 50 to 100 mg p.o. q.h.s. p.r.n. for insomnia. 15. Zolpidem 10 mg p.o. q.h.s. p.r.n. for insomnia. Medication changes in this hospitalization include those discharged on: 1. Atorvastatin 10 mg p.o. daily. 2. Aspirin 81 mg p.o. daily. 3. Prednisone 40 mg p.o. daily for additional 3 days status post discharge. HISTORY OF PRESENT ILLNESS AND HOSPITAL COURSE: A 68-year-old female with the above past medical history presented to the emergency room on 10/01/18 with complaint of vise-like chest pain, squeezing, starting in left upper chest, radiating to left back and left lower chest wall that had been present for several days off and on without any exacerbating or relieving factors. She has had increased cough and thought maybe she had an early bronchitis, although her chest pain continued and because she has a history of CAD, with status post distant PCI, her daughter who works at the cardiac unit in [place], [place], encouraged her to come to the emergency room and be evaluated. In the ER, EKG was negative for any acute ischemic changes and troponins were initially flat because the patient has cardiac history, JARRET risk mildly elevated at 2. The patient was admitted for atypical chest pain, rule out. HOSPITAL COURSE BY PROBLEM LIST: As follows: 1. Chest pain. Once again, the patient was trended on troponins, kept on telemetry, and had no acute events. Chest pain remained constant, described as a dull aching that was made worse by coughing. Ultimately, troponins remained at flat. She did receive a nuclear medicine stress test on 10/02/18 which was low risk for any reperfusion or ischemic changes. 2. CAD. The patient is status post CARLYN in 2017. For some reason, she is not taking aspirin, statin, or a beta-cortez and therefore at higher risk to have complications secondary to her not being able to tolerate (?) or for some reason not continued on secondary prevention with a history of known CAD. She is restarted on aspirin 81 mg p.o. daily, low-dose atorvastatin 10 mg which should be optimized to moderate or high intensity statin according to AHA guidelines. We will hold on beta-cortez initiation as the patient is overwhelmed with medication changes, although could be considered as an outpatient. 3. Anxiety. The patient is on citalopram, bupropion, clonazepam for longstanding anxiety, which she does not feel contributed to her current presentation. These were continued in the hospitalization along with her insomnia medications. 4. (?) bronchitis in the setting of known COPD. The patient has mild to moderate COPD at baseline and is on rescue inhalers only. She felt that this possibly could represent early bronchitis which she suffered from before and had similar pain. We started her on prednisone burst. Chest x-ray was done in ED, which showed hyperinflation with no acute consolidation. On day of discharge, the patient is tolerating diet. She has mild chest pain that seems more responsive to musculoskeletal pain relief with IV Toradol and she is reassured that this is not cardiac in nature. It will be treated as bronchitis and musculoskeletal chest pain and she can follow up with primary care provider to continue risk optimization of her known CAD. DATA OBTAINED DURING THIS HOSPITALIZATION: Labs obtained: CBC: White blood cell count 6.9, hemoglobin 12.3, hematocrit 37, platelets 276. Chemistries: Sodium 139, potassium 3.9, chloride 107, carbon dioxide 25, anion gap of 11, BUN 12, creatinine 0.71. Glucose 157. Lactic acid was flat. Troponin was 0 and 0 x2 consecutive readings. BNP is 16. LFTs are unremarkable. Imaging done included a chest x-ray which showed hyperinflation, but no acute cardiopulmonary disease. Noncontrast head CT was done as she did complain of headache which was negative for any acute intracranial pathology. A cervical spine CT was done given patient's complaint of left back pain that shows mild DJD C2 to C4 with no spinal or foraminal stenosis and otherwise negative CT cervical spine. EKG was done that shows normal sinus rhythm, possibly enlarged P waves consistent with left atrial enlargement, but no active signs of ischemia. A nuclear medicine stress test was done on 10/02/18, which showed no fixed or reversible perfusion deficits, assessment of a low risk stress test based on imaging criteria from ACC/AHA guidelines. ITEMS TO FOLLOW UP STATUS POST DISCHARGE: 1. CAD. Status post CARLYN to RCA in 2017, is not optimized on secondary prevention. Counseled the patient on the importance of re-trialing aspirin and statin in the setting of known CAD. We will continue to try to optimize her to prevent further cardiac events in the future. Furthermore, she has intermittent tobacco use still. She was counseled on total cessation and avoid second-hand smoke to help optimize her. She continues to work with primary care provider in this setting. 2. Atypical chest pain. Seems most consistent with musculoskeletal or possibly early bronchitis. She will be discharged on anti-inflammatories, prednisone 40 mg for additional 3 days and was given Toradol IV with some relief while here in the hospital. DISPOSITION AT THE TIME OF DISCHARGE: Stable to return to home. TIME SPENT: Thirty minutes was spent in the planning of this discharge with over half of that was spent directly at the bedside of the patient providing direct patient care. Plan of care was discussed with the patient and her family. They understand followup instructions to touch base with primary care provider as well as to return to hospitalist if any change in symptoms, worsening or increased shortness of breath. [id number]/CPS #: [id number] MTDD
== END 2018-10-02 14:54 | disposition home or self-care (01) ==
LOC: ED 19:16 → MEDTELE 23:40
PROVIDERS: ADMIT Student in an Organized Health Care Education/Training Program; ATTEND Internal Medicine
DX: R07.89 Other chest pain (principal); I25.10 Atherosclerotic heart disease of native coronary artery without angina pectoris; F41.9 Anxiety disorder, unspecified; J40 Bronchitis, not specified as acute or chronic; Z72.0 Tobacco use; J44.9 Chronic obstructive pulmonary disease, unspecified; Z79.82 Long term (current) use of aspirin; G47.00 Insomnia, unspecified; Z95.5 Presence of coronary angioplasty implant and graft; Z88.0 Allergy status to penicillin
CPT/HCPCS: 36415; 70450; 71045; 72125; 78452; 80053; 83605; 83735; 83880; 84100; 84484; 85025; 85610; 85730; 93005; 93017; 94640; 96372; 96374; 99284; A9270-GY; A9502; G0378; J1650; J1885; J2785; J7512

== ENCOUNTER → 2018-11-24 13:32 | Emergency (ER) | payer SELFPAY ==
[~2018-11-24 13:32] MED LIST: Albuterol/Ipratropium NEB.SOL* Albuterol 2.5 MG/Ipratropium 0.5 MG 3 ML INH ONE; Azithromycin TAB* 250 MG PO ONE; NS 0.9% 1000 ML** 1,000 ML IV ONE; guaiFENesin/CODIEN 100MG-10MG* 5 ML UDC PO ONE; predniSONE TAB* 20 MG PO ONE
--- NOTE | 2018-11-24 15:05 | ED ---
Asthma - HPI Summary HPI Summary: This patient is a 68 year old female presenting to [facility] with a chief complaint of SOB/wheezing since 3-4 days ago. She has a Hx of COPD and she believes this is exacerbation of it. The patient used her nebulizer at 1200 11/24/18. The patient went to her primary care provider and felt fine, then went to work and the exacerbation started where she was told to come here. Patient has audible wheezes and SOB at rest. She is having paroxysms of coughing in the room and reports pleuritic chest pain. She reports headache. Patient does not use home oxygen. The patient has a Hx of PE and states it does not feel like this. Vital signs in room: HR is 99 BPM. BP is 91/63. Citalopram TAB* [Celexa TAB*] 40 mg PO DAILY 01/04/16 [History Confirmed ] Cyclobenzaprine TAB* [Flexeril 10 MG TAB*] 5 - 10 mg PO BEDTIME PRN 01/04/16 [ History Confirmed 10/01/18] SUMAtriptan SQ* [Imitrex SQ*] 6 mg SUBCUT ONCE PRN 01/04/16 [History Confirmed 10/01/18] Zolpidem TAB* [Ambien*] 10 mg PO BEDTIME PRN 01/04/16 [History Confirmed ] clonazePAM TAB(*) [Klonopin TAB(*)] 1 mg PO BID 01/04/16 [History Confirmed ] traZODone TAB* [Desyrel TAB*] 50 - 100 mg PO BEDTIME PRN 01/04/16 [History Confirmed 10/01/18] Nitroglycerin TAB 0.4 MG* 0.4 mg SL Q5M PRN #60 tab 04/26/17 [Rx Confirmed 10/01] Albuterol HFA INHALER* [Ventolin HFA Inhaler*] 1 puff INH Q4H PRN #1 mdi [Rx Confirmed 10/01/18] Albuterol 2.5MG/3ML (0.083%)* [Ventolin 2.5 MG/3 ML NEB.VIKKI*] 2.5 mg INH Q4H PRN 02/05/18 [History Confirmed 10/01/18] Dicyclomine CAP* [Bentyl CAP*] 10 mg PO BID 02/05/18 [History Confirmed 10/01/18 ] guaiFENesin/CODIEN 100MG-10MG* [Robitussin AC 100Mg-10Mg*] 10 ml PO Q4H PRN 3 Days #120 udc MDD 40 ml 02/05/18 [Rx Confirmed 10/01/18] buPROPion HCl [Bupropion Xl] 1 tab PO DAILY 10/01/18 [History Confirmed 10/01/18 ] Aspirin [Aspir-Low] 81 mg PO DAILY #30 tablet. 10/02/18 [Rx] Atorvastatin* [Lipitor 10 MG*] 10 mg PO 1700 #30 tab 10/02/18 [Rx] predniSONE TAB* [Deltasone 20 MG TAB*] 40 mg PO DAILY #3 tab 10/02/18 [Rx] - History of Current Complaint Chief Complaint: EDUpperRespComplaint Stated Complaint: SOB/WHEEZING HAS COPD PER PT Time Seen by Provider: 11/24/18 14:43 Hx Obtained From: Patient Onset/Duration: Sudden Onset, Lasting Days Timing: Constant Initial Severity: Mild Current Severity: Mild Pain Intensity: 2 Pain Scale Used: 0-10 Numeric Location/Character: Wheezing - Allergy/Home Medications Allergies/Adverse Reactions: Allergies Allergy/AdvReac Type Severity Reaction Status Date / Time desvenlafaxine [From Pristiq] Allergy Unknown Verified 11/24/18 13:37 Reaction Details amoxicillin [From Augmentin] AdvReac GI Upset Verified 11/24/18 13:37 aripiprazole AdvReac GI Upset Verified 11/24/18 13:37 clavulanic acid AdvReac GI Upset Verified 11/24/18 13:37 [From Augmentin] lactose AdvReac GI Upset Verified 11/24/18 13:37 mirtazapine [From Remeron] AdvReac GI Upset Verified 11/24/18 13:37 PMH/Surg Hx/FS Hx/Imm Hx Endocrine/Hematology History: Denies: Hx Anticoagulant Therapy, Hx Blood Disorders, Hx Blood Transfusions, Hx Diabetes, Hx Sickle Cell Disease, Hx Thyroid Disease, Hx Anemia Cardiovascular History: Reports: Hx Deep Vein Thrombosis, Other Cardiovascular Problems/Disorders - cardiac stent Denies: Hx Aneurysm, Hx Angina, Hx Angioplasty, Hx Auto Implanted Cardiovert Defib, Hx Cardiac Arrest, Hx Cardiomegaly, Hx Congenital Heart Disease, Hx Congestive Heart Failure, Hx Coronary Artery Disease, Hx Embolism, Hx Hypercholesterolemia, Hx Hypertension, Hx Myocardial Infarction, Hx Valvular Heart Disease Respiratory History: Reports: Hx Chronic Bronchitis, Hx Chronic Obstructive Pulmonary Disease (COPD), Hx Pulmonary Embolism, Hx Seasonal Allergies, Other Respiratory Problems/Disorders - hx bronchitis Denies: Hx Asthma, Hx Cystic Fibrosis, Hx Pleural Effusion, Hx Pulmonary Edema GI History: Reports: Hx Diverticulosis Denies: Hx Crohn's Disease, Hx Gall Bladder Disease, Hx Gastroesophageal Reflux Disease, Hx Gastrointestinal Bleed, Hx Hiatal Hernia, Hx Irritable Bowel , Hx Jaundice, Hx Obstructive Bowel, Hx Ileostomy, Hx Pyloric Stenosis, Hx Ulcer History: Denies: Hx Renal Disease Musculoskeletal History: Reports: Hx Back Problems, Hx Orthopedic Injury Sensory History: Reports: Hx Contacts or Glasses Denies: Hx Eye Injury, Hx Eye Prosthesis, Hx Glaucoma, Hx Macular Degeneration, Hx Vision Problem, Hx Hearing Aid, Hx Hearing Problem, Other Sensory Impairments Opthamlomology History: Reports: Hx Contacts or Glasses Denies: Hx Eye Injury, Hx Eye Prosthesis, Hx Glaucoma, Hx Macular Degeneration, Hx Vision Problem, Other Sensory Impairments Neurological History: Reports: Hx Headaches, Hx Migraine Denies: Hx Dementia, Hx Developmental Delay, Hx Nerve Disease, Hx Seizures, Hx Spinal Cord Injury, Hx Transient Ischemic Attacks (TIA) Comment Only: Other Neuro Impairments/Disorders - insomnia Psychiatric History: Reports: Hx Anxiety, Hx Depression Denies: Hx Panic Disorder, Hx Post Traumatic Stress Disorder, Hx Inpatient Treatment, Hx Schizophrenia, Hx Suicide Attempt, Hx of Violent Episodes Against Others - Cancer History Cancer Type, Location and Year: ibs Hx Chemotherapy: No Hx Palliative Cancer Treatment: No - Surgical History Surgery Procedure, Year, and Place: tubal ligation, appendectomy - Immunization History Date of Tetanus Vaccine: unknown Date of Influenza Vaccine: none Infectious Disease History: No Infectious Disease History: Denies: Hx Clostridium Difficile, Hx Hepatitis, Hx Human Immunodeficiency Virus (HIV), Hx of Known/Suspected MRSA, Hx Shingles, Hx Tuberculosis, Hx Known/ Suspected VRE, Hx Known/Suspected VRSA, History Other Infectious Disease, Traveled Outside the [place] in Last 30 Days - Family History Known Family History: Positive: Cardiac Disease, Respiratory Disease - COPD ( Emphysema) Family History: FHx of COPD and emphysema - Social History Alcohol Use: None Hx Substance Use: No Substance Use Type: Reports: None Hx Tobacco Use: Yes Smoking Status (MU): Former Smoker Type: Cigarettes Amount Used/How Often: 1/4 packs a day Have You Smoked in the Last Year: Yes Review of Systems Positive: Chest Pain Positive: Shortness Of Breath, Cough Genitourinary: Negative Positive: Headache All Other Systems Reviewed And Are Negative: Yes Physical Exam - Summary Physical Exam Summary: Appearance: Ill-appearing, moderate pain distress, thin Skin: Warm, color reflects adequate perfusion, dry Head: Normal Head/Face inspection, atraumatic Eyes: Conjunctiva clear ENT: Normal inspection Neck: Supple, no nodes, no JVD Respiratory: Audible wheezing. SOB at rest. Cardio: RRR, No murmur, pulses normal, brisk capillary refill Abdomen: Soft, nontender Bowel sounds: Present Musculoskeletal: Strength Intact/ROM intact, no calf tenderness, no edema. Psychological: Normal Neuro: Alert, muscle tone normal, no focal deficit Triage Information Reviewed: Yes Vital Signs On Initial Exam: Initial Vitals Temp Pulse Resp BP Pulse Ox 98.4 F 114 20 154/85 95 11/24/18 13:34 11/24/18 13:34 11/24/18 13:34 11/24/18 13:34 11/24/18 13:34 Vital Signs Reviewed: Yes Diagnostics - Vital Signs Vital Signs Temp Pulse Resp BP Pulse Ox 11/24/18 13:34 98.4 F 114 20 154/85 95 - Laboratory Result Diagrams: 11/24/18 15:39 11/24/18 15:39 Lab Statement: Any lab studies that have been ordered have been reviewed, and results considered in the medical decision making process. - Radiology CXR Radiology Interpretation Completed By: Radiologist Summary of Radiographic Findings: No active cardiopulmonary disease is noted. ED Provider has reviewed this report. - EKG 1520 Cardiac Rate: NL - [address] Segment: Non-Specific Summary of EKG Findings: An EKG at 1520 reveals nml AV/IV CT, nml QTc, and nml axis. No acute changes.ED MD has reviewed and interpreted this EKG. Asthma Course/Dx - Course Course Of Treatment: This patient is a 68 year old female presenting to [facility] with a chief complaint of SOB/wheezing since 3-4 days ago. Vital signs reviewed. Home medications reviewed. Nurses note reviewed. EKG revealed RBBB. CXR was unremarkable for cardiopulmonary disease. She was administetered Albulterol, Robitussin, and Deltasone to treat her symptoms. A plan for discharge was discussed with the patient and she was agreeable with this plan. - Diagnoses Provider Diagnoses: COPD exacerbation Discharge - Sign-Out/Discharge Documenting (check all that apply): Patient Departure - Discharge Patient Received Moderate/Deep Sedation with Procedure: No - Discharge Plan Referrals: John Trujillo MD [Primary Care Provider] - - Attestation Statements Document Initiated by Scribe: Yes Documenting Scribe: Issa Lipscomb Provider For Whom Radhikaibe is Documenting (Include Credential): Tawnya Wolfe MD Scribe Attestation: Issa Chapin, scribed for Tawnya Wolfe MD on 11/24/18 at 1914. Status of Scribe Document: Ready
[2018-11-24 15:45] LABS: ABS Basophils 0.1 10^3/ul (0-0.2); ABS Eosinophils 0.4 10^3/ul (0-0.6); ABS Lymphocytes 2.2 10^3/ul (1.0-4.8); ABS Monocytes 0.7 10^3/ul (0-0.8); ABS Neutrophils 8.7 10^3/ul (1.5-7.7); Eosinophil % 2.9 %; Hematocrit 39 % (35-47); Hemoglobin 13.3 g/dL (12.0-16.0); Lymphocyte % 18.7 %; Mean Corpuscular HGB Conc 34 g/dL (31-36); Mean Corpuscular Hemoglobin 31 pg (27-31); Mean Corpuscular Volume 90 fL (80-97); Mean Platelet Volume 7.7 fL (7.4-10.4); Nucleated Red Blood Cells % 0.1; Platelet Count 315 10^3/uL (150-450); Red Blood Count 4.33 10^6 /uL (3.70-4.87); Red Cell Distribution Width 14 % (10-15)
[2018-11-24 15:55] LABS: Activated Partial Thrombo Time 34.1 seconds (26.0-38.0); INR 1.01 (0.82-1.09)
[2018-11-24 16:04] LABS: Albumin 4.2 g/dL (3.2-5.2); Albumin/Globulin Ratio 1.4 (1-3); BUN/Creatinine Ratio 14.1 (8-20); C Reactive Protein 18.48 mg/L (<8.01); Calcium 9.4 mg/dL (8.6-10.3); EGFR African American 111.7 (>60); EGFR Non-African American 92.3 (>60); Potassium 3.4 mmol/L (3.5-5.0); Total Bilirubin 0.3 mg/dL (0.2-1.0); Total Protein 7.2 g/dL (6.4-8.9)
[2018-11-24 16:08] LABS: CKMB ng/mL 2.2 ng/mL (0.6-6.3)
[2018-11-24 19:37] VITALS: BP 96/66
== END | disposition home or self-care (01) ==
LOC: ED 13:32
DX: J44.1 Chronic obstructive pulmonary disease with (acute) exacerbation (principal); G43.909 Migraine, unspecified, not intractable, without status migrainosus; G47.00 Insomnia, unspecified; F41.9 Anxiety disorder, unspecified; F32.9 Major depressive disorder, single episode, unspecified; Z79.82 Long term (current) use of aspirin; Z86.718 Personal history of other venous thrombosis and embolism; Z86.711 Personal history of pulmonary embolism; Z95.5 Presence of coronary angioplasty implant and graft; Z88.1 Allergy status to other antibiotic agents; Z88.8 Allergy status to other drugs, medicaments and biological substances; Z87.891 Personal history of nicotine dependence
CPT/HCPCS: 36415; 71046; 80053; 82550; 82553; 83605; 83880; 84484; 85025; 85610; 85730; 86140; 93005; 96360; 99283; A9270-GY; J7512

== ENCOUNTER 2018-12-14 11:07 | Emergency (ER) | payer SELFPAY ==
[2018-12-14 11:46] LABS: ABS Basophils 0.1 10^3/ul (0-0.2); ABS Eosinophils 0.5 10^3/ul (0-0.6); ABS Lymphocytes 1.6 10^3/ul (1.0-4.8); ABS Monocytes 0.5 10^3/ul (0-0.8); ABS Neutrophils 6.3 10^3/ul (1.5-7.7); Hematocrit 38 % (35-47); Mean Corpuscular HGB Conc 34 g/dL (31-36); Mean Corpuscular Hemoglobin 31 pg (27-31); Mean Corpuscular Volume 90 fL (80-97); Mean Platelet Volume 7.8 fL (7.4-10.4); Platelet Count 318 10^3/uL (150-450); Red Blood Count 4.25 10^6 /uL (3.70-4.87); Red Cell Distribution Width 14 % (10-15); White Blood Count 9.1 10^3/uL (3.5-10.8)
[2018-12-14 12:12] LABS: Albumin/Globulin Ratio 1.4 (1-3); BUN/Creatinine Ratio 9.7 (8-20); EGFR African American 97.5 (>60); EGFR Non-African American 80.6 (>60); Globulin 2.9 g/dL (2-4); Potassium 3.8 mmol/L (3.5-5.0); Total Bilirubin 0.3 mg/dL (0.2-1.0); Total Protein 6.9 g/dL (6.4-8.9)
--- NOTE | 2018-12-14 12:36 | ED ---
Shortness of Breath - HPI Summary HPI Summary: This pt is a 68 y/o female, with hx of COPD, presenting to [facility] c/o SOB for the past 4-5 days. Pt reports associated symptoms of nonproductive cough, wheezing, chest pain. Pt states she has chest pain all the time and is sore from coughing. She does not use oxygen at home. Pt has been using her albuterol treatment around the clock with no improvement. Denies fever, chills, sweats, erythema of eyes, sore throat, CP, SOB, cough, abd pain, nausea, vomiting, dysuria, hematuria, myalgia, edema, rash, or dizziness. Her PCP is Dr. Trujillo. - History of Current Complaint Chief Complaint: EDShortnessOfBreath Time Seen by Provider: 12/14/18 11:23 Hx Obtained From: Patient Onset/Duration: Lasting Days, Still Present Current Severity: Moderate Aggravating Factors: Nothing Alleviating Factors: Nothing Associated Signs & Symptoms: Cough (Nonproductive), Wheezing, Chest Pain w/Cough - Allergy/Home Medications Allergies/Adverse Reactions: Allergies Allergy/AdvReac Type Severity Reaction Status Date / Time desvenlafaxine [From Pristiq] Allergy Unknown Verified 11/24/18 13:37 Reaction Details amoxicillin [From Augmentin] AdvReac GI Upset Verified 11/24/18 13:37 aripiprazole AdvReac GI Upset Verified 11/24/18 13:37 clavulanic acid AdvReac GI Upset Verified 11/24/18 13:37 [From Augmentin] lactose AdvReac GI Upset Verified 11/24/18 13:37 mirtazapine [From Remeron] AdvReac GI Upset Verified 11/24/18 13:37 Home Medications: Home Medications Albuterol HFA INHALER* [Ventolin HFA Inhaler*] 2 puff INH Q4H PRN 12/14/18 [ History Confirmed 12/14/18] Fluticasone/Vilanterol MDI(NF) [Breo Ellipta MDI (NF)] 1 puff INH DAILY [History Confirmed 12/14/18] PMH/Surg Hx/FS Hx/Imm Hx Endocrine/Hematology History: Denies: Hx Anticoagulant Therapy, Hx Blood Disorders, Hx Blood Transfusions, Hx Diabetes, Hx Sickle Cell Disease, Hx Thyroid Disease, Hx Anemia Cardiovascular History: Reports: Hx Deep Vein Thrombosis, Other Cardiovascular Problems/Disorders - cardiac stent Denies: Hx Aneurysm, Hx Angina, Hx Angioplasty, Hx Auto Implanted Cardiovert Defib, Hx Cardiac Arrest, Hx Cardiomegaly, Hx Congenital Heart Disease, Hx Congestive Heart Failure, Hx Coronary Artery Disease, Hx Embolism, Hx Hypercholesterolemia, Hx Hypertension, Hx Myocardial Infarction, Hx Valvular Heart Disease Respiratory History: Reports: Hx Chronic Bronchitis, Hx Chronic Obstructive Pulmonary Disease (COPD), Hx Pulmonary Embolism, Hx Seasonal Allergies, Other Respiratory Problems/Disorders - hx bronchitis Denies: Hx Asthma, Hx Cystic Fibrosis, Hx Pleural Effusion, Hx Pulmonary Edema GI History: Reports: Hx Diverticulosis Denies: Hx Crohn's Disease, Hx Gall Bladder Disease, Hx Gastroesophageal Reflux Disease, Hx Gastrointestinal Bleed, Hx Hiatal Hernia, Hx Irritable Bowel , Hx Jaundice, Hx Obstructive Bowel, Hx Ileostomy, Hx Pyloric Stenosis, Hx Ulcer History: Denies: Hx Renal Disease Musculoskeletal History: Reports: Hx Back Problems, Hx Orthopedic Injury Sensory History: Reports: Hx Contacts or Glasses Denies: Hx Eye Injury, Hx Eye Prosthesis, Hx Glaucoma, Hx Macular Degeneration, Hx Vision Problem, Hx Hearing Aid, Hx Hearing Problem, Other Sensory Impairments Opthamlomology History: Reports: Hx Contacts or Glasses Denies: Hx Eye Injury, Hx Eye Prosthesis, Hx Glaucoma, Hx Macular Degeneration, Hx Vision Problem, Other Sensory Impairments Neurological History: Reports: Hx Headaches, Hx Migraine Denies: Hx Dementia, Hx Developmental Delay, Hx Nerve Disease, Hx Seizures, Hx Spinal Cord Injury, Hx Transient Ischemic Attacks (TIA) Comment Only: Other Neuro Impairments/Disorders - insomnia Psychiatric History: Reports: Hx Anxiety, Hx Depression Denies: Hx Panic Disorder, Hx Post Traumatic Stress Disorder, Hx Inpatient Treatment, Hx Schizophrenia, Hx Suicide Attempt, Hx of Violent Episodes Against Others - Cancer History Cancer Type, Location and Year: ibs Hx Chemotherapy: No Hx Palliative Cancer Treatment: No - Surgical History Surgery Procedure, Year, and Place: tubal ligation, appendectomy - Immunization History Date of Tetanus Vaccine: unknown Date of Influenza Vaccine: none Infectious Disease History: No Infectious Disease History: Denies: Hx Clostridium Difficile, Hx Hepatitis, Hx Human Immunodeficiency Virus (HIV), Hx of Known/Suspected MRSA, Hx Shingles, Hx Tuberculosis, Hx Known/ Suspected VRE, Hx Known/Suspected VRSA, History Other Infectious Disease, Traveled Outside the [place] in Last 30 Days - Family History Known Family History: Positive: Cardiac Disease, Respiratory Disease - COPD ( Emphysema) Family History: FHx of COPD and emphysema - Social History Alcohol Use: None Hx Substance Use: No Substance Use Type: Reports: None Hx Tobacco Use: Yes Smoking Status (MU): Former Smoker Type: Cigarettes Amount Used/How Often: 1/4 packs a day Have You Smoked in the Last Year: Yes Review of Systems Negative: Fever, Chills Negative: Erythema Negative: Sore Throat Positive: Chest Pain Positive: Shortness Of Breath, Cough Negative: Abdominal Pain, Vomiting, Nausea Negative: dysuria, hematuria Negative: Myalgia, Edema Negative: Rash Neurological: Other - NEGATIVE: dizziness All Other Systems Reviewed And Are Negative: Yes Physical Exam - Summary Physical Exam Summary: Constitutional: Well-developed, Well-nourished, Alert. (-) Distressed Skin: Warm, Dry HENT: Normocephalic; Atraumatic Eyes: Conjunctiva normal Neck: Musculoskeletal ROM normal neck. (-) JVD, (-) Stridor, (-) Tracheal deviation Cardio: Rhythm regular, rate normal, Heart sounds normal; Intact distal pulses; The pedal pulses are 2+ and symmetric. Radial pulses are 2+ and symmetric. (-) Murmur Pulmonary/Chest wall: Effort normal. (-) Respiratory distress, Expiratory wheezes and excessive coughing Abd: Soft, (-) tenderness, (-) Distension, (-) Guarding, (-) Rebound Musculoskeletal: (-) Edema Lymph: (-) Cervical adenopathy Neuro: Alert, Oriented x3 Psych: Mood and affect Normal Triage Information Reviewed: Yes Vital Signs On Initial Exam: Initial Vitals Temp Pulse Resp BP Pulse Ox 98.1 F 112 24 151/78 94 12/14/18 11:08 12/14/18 11:08 12/14/18 11:08 12/14/18 11:08 12/14/18 11:08 Vital Signs Reviewed: Yes Diagnostics - Vital Signs Vital Signs Temp Pulse Resp BP Pulse Ox 12/14/18 11:08 98.1 F 112 24 151/78 94 - Laboratory Lab Results: Lab Results 12/14/18 12/14/18 12/14/18 Range/Units 11:31 11:31 11:31 WBC 9.1 (3.5-10.8) 10^3/uL RBC 4.25 (3.70-4.87) 10^6 /uL Hgb 13.0 (12.0-16.0) g/dL Hct 38 (35-47) % MCV 90 (80-97) fL MCH 31 (27-31) pg MCHC 34 (31-36) g/dL RDW 14 (10-15) % Plt Count 318 (150-450) 10^3/uL MPV 7.8 (7.4-10.4) fL Neut % (Auto) 69.5 % Lymph % (Auto) 18.0 % [place] % (Auto) 5.9 % Eos % (Auto) 6.0 % Baso % (Auto) 0.6 % Absolute Neuts (auto) 6.3 (1.5-7.7) 10^3/ul Absolute Lymphs (auto) 1.6 (1.0-4.8) 10^3/ul Absolute Monos (auto) 0.5 (0-0.8) 10^3/ul Absolute Eos (auto) 0.5 (0-0.6) 10^3/ul Absolute Basos (auto) 0.1 (0-0.2) 10^3/ul Absolute Nucleated RBC 0.0 10^3/ul Nucleated RBC % 0.0 Sodium 138 (135-145) mmol/L Potassium 3.8 (3.5-5.0) mmol/L Chloride 104 (101-111) mmol/L Carbon Dioxide 23 (22-32) mmol/L Anion Gap 11 (2-11) mmol/L BUN 7 (6-24) mg/dL Creatinine 0.72 (0.51-0.95) mg/dL Est GFR ( Amer) 97.5 (>60) Est GFR (Non-Af Amer) 80.6 (>60) BUN/Creatinine Ratio 9.7 (8-20) Glucose 123 H (70-100) mg/dL Lactic Acid 1.8 (0.5-2.0) mmol/L Calcium 9.0 (8.6-10.3) mg/dL Total Bilirubin 0.30 (0.2-1.0) mg/dL AST 15 (13-39) U/L ALT 9 (7-52) U/L Alkaline Phosphatase 91 (34-104) U/L Troponin I 0.00 (<0.04) ng/mL Total Protein 6.9 (6.4-8.9) g/dL Albumin 4.0 (3.2-5.2) g/dL Globulin 2.9 (2-4) g/dL Albumin/Globulin Ratio 1.4 (1-3) Result Diagrams: 12/14/18 11:31 12/14/18 11:31 Lab Statement: Any lab studies that have been ordered have been reviewed, and results considered in the medical decision making process. - Radiology Chest XR Radiology Interpretation Completed By: Radiologist Summary of Radiographic Findings: IMPRESSION: Findings consistent with COPD, no evidence for acute disease. Dr. Cruz has reviewed this report. - EKG 11:45 Cardiac Rate: NL - at 90 bpm EKG Rhythm: Sinus Rhythm Summary of EKG Findings: No STEMI. Re-Evaluation - Re-Evaluation First Eval Re-Evaluation Time: 14:50 Change: Improved Comment: Pt is feeling better. She ambulated in the ED without difficulty. Course/Dx - Course Assessment/Plan: Pt is a 68 y/o female, with hx of COPD, presenting to [facility] c/ o SOB for the past 4-5 days. Pt reports associated symptoms of nonproductive cough, wheezing, chest pain. Pt states she has chest pain all the time and is sore from coughing. She does not use oxygen at home. Pt has been using her albuterol treatment around the clock with no improvement. Blood work is unremarkable. Chest XR shows findings consistent with COPD, no evidence for acute disease. In the ED course the pt was given duoneb treatment, decadron. On re-eval pt is feeling better. She ambulated in the ED without difficulty. Patient will be discharged home with follow up from her PCP in 2-3 days. She was given prescriptions for Doxycycline and Prednisone. She was instruted to return to the ED for any worsening or new symptoms. - Diagnoses Provider Diagnoses: COPD exacerbation Discharge - Sign-Out/Discharge Documenting (check all that apply): Patient Departure - Discharge home Patient Received Moderate/Deep Sedation with Procedure: No - Discharge Plan Condition: Stable Disposition: HOME Prescriptions: DOXYcycline CAP(*) [DOXYcycline 100MG CAP(*)] 100 mg PO BID #10 cap predniSONE TAB* [Deltasone 20 MG TAB*] 40 mg PO DAILY #4 tab Patient Education Materials: COPD (Chronic Obstructive Pulmonary Disease) (ED) Referrals: John Trujillo MD [Primary Care Provider] - Additional Instructions: Follow up with your primary care provider in 2-3 days. RETURN TO THE EMERGENCY DEPARTMENT FOR CHANGING OR WORSENING SYMPTOMS. - Attestation Statements Document Initiated by Scribe: Yes Documenting Scribe: Zoraida Garcia Provider For Whom Scribe is Documenting (Include Credential): Aj Cruz MD Scribe Attestation: Zoraida Chapin, scribed for Aj Cruz MD on 12/14/18 at 1451. Status of Scribe Document: Ready
[2018-12-14] MEDS ORDERED: Albuterol/Ipratropium NEB.SOL* Albuterol 2.5 MG/Ipratropium 0.5 MG 3 ML INH ONE (12:42)
[2018-12-14] MEDS ORDERED: Dexamethasone IV* 4 MG/ML 1 ML (4 MG) IV SLOW PU ONE (12:42)
[2018-12-14 15:20] VITALS: BP 109/65
== END 2018-12-14 15:20 | disposition home or self-care (01) ==
LOC: ED 11:07
DX: J44.1 Chronic obstructive pulmonary disease with (acute) exacerbation (principal); F41.9 Anxiety disorder, unspecified; F32.9 Major depressive disorder, single episode, unspecified; Z88.1 Allergy status to other antibiotic agents; Z88.8 Allergy status to other drugs, medicaments and biological substances; Z79.899 Other long term (current) drug therapy; Z87.891 Personal history of nicotine dependence
CPT/HCPCS: 36415; 71045; 80053; 83605; 84484; 85025; 87040; 93005; 96374; 99283; A9270-GY; J1100

== ENCOUNTER 2018-12-22 15:07 | Emergency (ER) | payer SELFPAY ==
[2018-12-22] MEDS ORDERED: methylPREDNISolone 125 MG* 2 ML VIAL IV ONE (16:17)
[2018-12-22] MEDS ORDERED: Albuterol/Ipratropium NEB.SOL* Albuterol 2.5 MG/Ipratropium 0.5 MG 3 ML INH PRN (16:17)
--- NOTE | 2018-12-22 16:19 | ED ---
Shortness of Breath - HPI Summary HPI Summary: Patient is a 68 y/o F w/ Hx of COPD who presents to the ED with complaints of SOB and cough for the past few days. Cough was productive of brown phlegm this morning, but later in the day her phlegm was yellow-colored. She additionally notes right sided, point chest pain. She states she is not a current smoker and reports that she does not have home o2. Patient states Sx are similar to her COPD exacerbations. She denies leg edema. Patient additionally claims that her cough was severe to the point that she had vomited previously. On triage, pain is rated 5/10, nothing is noted to aggravate/alleviate Sx. Home medications and allergies are reviewed. - History of Current Complaint Chief Complaint: EDShortnessOfBreath Time Seen by Provider: 12/22/18 16:05 Hx Obtained From: Patient Onset/Duration: Lasting Days, Still Present Timing: Constant Current Severity: Moderate Aggravating Factors: Nothing Alleviating Factors: Nothing Associated Signs & Symptoms: Cough (Productive) - Allergy/Home Medications Allergies/Adverse Reactions: Allergies Allergy/AdvReac Type Severity Reaction Status Date / Time desvenlafaxine [From Pristiq] Allergy Unknown Verified 12/22/18 15:13 Reaction Details amoxicillin [From Augmentin] AdvReac GI Upset Verified 12/22/18 15:13 aripiprazole AdvReac GI Upset Verified 12/22/18 15:13 clavulanic acid AdvReac GI Upset Verified 12/22/18 15:13 [From Augmentin] lactose AdvReac GI Upset Verified 12/22/18 15:13 mirtazapine [From Remeron] AdvReac GI Upset Verified 12/22/18 15:13 PMH/Surg Hx/FS Hx/Imm Hx Endocrine/Hematology History: Denies: Hx Anticoagulant Therapy, Hx Blood Disorders, Hx Blood Transfusions, Hx Diabetes, Hx Sickle Cell Disease, Hx Thyroid Disease, Hx Anemia Cardiovascular History: Reports: Hx Deep Vein Thrombosis, Other Cardiovascular Problems/Disorders - cardiac stent Denies: Hx Aneurysm, Hx Angina, Hx Angioplasty, Hx Auto Implanted Cardiovert Defib, Hx Cardiac Arrest, Hx Cardiomegaly, Hx Congenital Heart Disease, Hx Congestive Heart Failure, Hx Coronary Artery Disease, Hx Embolism, Hx Hypercholesterolemia, Hx Hypertension, Hx Myocardial Infarction, Hx Valvular Heart Disease Respiratory History: Reports: Hx Chronic Bronchitis, Hx Chronic Obstructive Pulmonary Disease (COPD), Hx Pulmonary Embolism, Hx Seasonal Allergies, Other Respiratory Problems/Disorders - hx bronchitis Denies: Hx Asthma, Hx Cystic Fibrosis, Hx Pleural Effusion, Hx Pulmonary Edema GI History: Reports: Hx Diverticulosis Denies: Hx Crohn's Disease, Hx Gall Bladder Disease, Hx Gastroesophageal Reflux Disease, Hx Gastrointestinal Bleed, Hx Hiatal Hernia, Hx Irritable Bowel , Hx Jaundice, Hx Obstructive Bowel, Hx Ileostomy, Hx Pyloric Stenosis, Hx Ulcer History: Denies: Hx Renal Disease Musculoskeletal History: Reports: Hx Back Problems, Hx Orthopedic Injury Sensory History: Reports: Hx Contacts or Glasses Denies: Hx Eye Injury, Hx Eye Prosthesis, Hx Glaucoma, Hx Macular Degeneration, Hx Vision Problem, Hx Hearing Aid, Hx Hearing Problem, Other Sensory Impairments Opthamlomology History: Reports: Hx Contacts or Glasses Denies: Hx Eye Injury, Hx Eye Prosthesis, Hx Glaucoma, Hx Macular Degeneration, Hx Vision Problem, Other Sensory Impairments Neurological History: Reports: Hx Headaches, Hx Migraine Denies: Hx Dementia, Hx Developmental Delay, Hx Nerve Disease, Hx Seizures, Hx Spinal Cord Injury, Hx Transient Ischemic Attacks (TIA) Comment Only: Other Neuro Impairments/Disorders - insomnia Psychiatric History: Reports: Hx Anxiety, Hx Depression Denies: Hx Panic Disorder, Hx Post Traumatic Stress Disorder, Hx Inpatient Treatment, Hx Schizophrenia, Hx Suicide Attempt, Hx of Violent Episodes Against Others - Cancer History Cancer Type, Location and Year: ibs Hx Chemotherapy: No Hx Palliative Cancer Treatment: No - Surgical History Surgery Procedure, Year, and Place: tubal ligation, appendectomy - Immunization History Date of Tetanus Vaccine: unknown Date of Influenza Vaccine: none Infectious Disease History: No Infectious Disease History: Denies: Hx Clostridium Difficile, Hx Hepatitis, Hx Human Immunodeficiency Virus (HIV), Hx of Known/Suspected MRSA, Hx Shingles, Hx Tuberculosis, Hx Known/ Suspected VRE, Hx Known/Suspected VRSA, History Other Infectious Disease, Traveled Outside the [place] in Last 30 Days - Family History Known Family History: Positive: Cardiac Disease, Respiratory Disease - COPD ( Emphysema) Family History: FHx of COPD and emphysema - Social History Alcohol Use: None Hx Substance Use: No Substance Use Type: Reports: None Hx Tobacco Use: Yes Smoking Status (MU): Former Smoker Type: Cigarettes Amount Used/How Often: 1/4 packs a day Have You Smoked in the Last Year: Yes Review of Systems Positive: Chest Pain Positive: Shortness Of Breath, Cough Positive: Vomiting Negative: Edema All Other Systems Reviewed And Are Negative: Yes Physical Exam - Summary Physical Exam Summary: VITAL SIGNS: Reviewed. GENERAL: Patient is a well-developed and nourished female who is lying comfortable in the stretcher. Patient is not in any acute respiratory distress. HEAD AND FACE: No signs of trauma. No ecchymosis, hematomas or skull depressions. No sinus tenderness. EYES: PERRLA, EOMI x 2, No injected conjunctiva, no nystagmus. EARS: Hearing grossly intact. Ear canals and tympanic membranes are within normal limits. MOUTH: Oropharynx within normal limits. NECK: Supple, trachea is midline, no adenopathy, no JVD, no carotid bruit, no c- spine tenderness, neck with full ROM. CHEST: Symmetric, no tenderness at palpation. LUNGS: Decreased breath sounds. Wheezes at the apexes of back. Crackles in lung bases. CVS: Regular rate and rhythm, S1 and S2 present, no murmurs or gallops appreciated. ABDOMEN: Soft, non-tender. No signs of distention. No rebound, no guarding, and no masses palpated. Bowel sounds are normal. EXTREMITIES: FROM in all major joints, no edema, no cyanosis or clubbing. NEURO: Alert and oriented x 3. No acute neurological deficits. Speech is normal and follows commands. SKIN: Dry and warm. Triage Information Reviewed: Yes Vital Signs On Initial Exam: Initial Vitals Temp Pulse Resp BP Pulse Ox 97.1 F 102 22 119/75 94 12/22/18 15:09 12/22/18 15:09 12/22/18 15:09 12/22/18 15:09 12/22/18 15:09 Vital Signs Reviewed: Yes Diagnostics - Vital Signs Vital Signs Temp Pulse Resp BP Pulse Ox 12/22/18 15:09 97.1 F 102 22 119/75 94 - Laboratory Result Diagrams: 12/22/18 16:27 12/22/18 16:27 Lab Statement: Any lab studies that have been ordered have been reviewed, and results considered in the medical decision making process. - Radiology CXR Radiology Interpretation Completed By: Radiologist Summary of Radiographic Findings: CXR IMPRESSION: COPD WITH MILD FIBROTIC CHANGES. THIS REPORT WAS REVIEWED BY DR. ZUNIGA - EKG 1621 Cardiac Rate: NL - rate of 88 BPM EKG Rhythm: Sinus Rhythm EKG Comparison: No Significant Change - compared to 12/14/18 Summary of EKG Findings: EKG showed sinus rhythm with rate of 88 BPM, no ST elevations, similar EKG compared to 12/14/18. Re-Evaluation - Re-Evaluation First Eval Re-Evaluation Time: 18:08 Change: Improved Comment: At this point the patient is feeling better, and she is hemodynamically stable. Therefore the patient will be discharged home with follow-up with PCP. Course/Dx - Course Assessment/Plan: Patient is a 68 y/o F w/ Hx of COPD who presents to the ED with complaints of SOB and cough for the past few days. Cough was productive of brown phlegm this morning, but later in the day her phlegm was yellow-colored. She additionally notes right sided, point chest pain. She states she is not a current smoker and reports that she does not have home o2. Patient states Sx are similar to her COPD exacerbations. She denies leg edema. Patient additionally claims that her cough was severe to the point that she had vomited previously. Blood work without any significant abnormality except for sodium 133. Troponin is negative, and the CRP is also negative. Chest x-ray shows no acute pathology. In the ED course the patient was given multiple DuoNebs and solu-medrol and the symptoms have significantly improved. At this point the patient is feeling better, and she is hemodynamically stable. Therefore the patient will be discharged home with follow-up with PCP. - Diagnoses Provider Diagnoses: COPD exacerbation Discharge - Sign-Out/Discharge Documenting (check all that apply): Patient Departure - discharge Patient Received Moderate/Deep Sedation with Procedure: No - Discharge Plan Condition: Stable Disposition: HOME Prescriptions: predniSONE TAB* [Deltasone 20 MG TAB*] 40 mg PO DAILY #8 tab Patient Education Materials: COPD (Chronic Obstructive Pulmonary Disease) (ED) Referrals: John Trujillo MD [Primary Care Provider] - 3 Days Additional Instructions: RETURN TO ED FOR ANY NEW OR WORSENING SYMPTOMS. FOLLOW UP WITH YOUR PRIMARY CARE PHYSICIAN WITHIN THREE DAYS. - Billing Disposition and Condition Condition: STABLE Disposition: Home - Attestation Statements Document Initiated by Scribe: Yes Documenting Scribe: KALANI ROPER Provider For Whom Tyler is Documenting (Include Credential): JUDAH ZUNIGA MD Scribe Attestation: I, KALANI ROPER, scribed for JUDAH ZUNIGA MD on 12/23/18 at 0743. Scribe Documentation Reviewed: Yes Provider Attestation: The documentation as recorded by the scribe, KALANI ROPER accurately reflects the service I personally performed and the decisions made by me, JUDAH ZUNIGA MD Status of Scribe Document: Viewed
[2018-12-22] MEDS ORDERED: Albuterol/Ipratropium NEB.SOL* Albuterol 2.5 MG/Ipratropium 0.5 MG 3 ML ONE (16:27)
[2018-12-22 16:33] LABS: ABS Basophils 0.1 10^3/ul (0-0.2); ABS Eosinophils 1.1 10^3/ul (0-0.6); ABS Lymphocytes 1.9 10^3/ul (1.0-4.8); ABS Monocytes 0.8 10^3/ul (0-0.8); ABS Neutrophils 5.2 10^3/ul (1.5-7.7); Eosinophil % 11.9 %; Hematocrit 40 % (35-47); Hemoglobin 13.6 g/dL (12.0-16.0); Lymphocyte % 21.2 %; Mean Corpuscular HGB Conc 35 g/dL (31-36); Mean Corpuscular Hemoglobin 31 pg (27-31); Mean Corpuscular Volume 89 fL (80-97); Mean Platelet Volume 7.1 fL (7.4-10.4); Platelet Count 369 10^3/uL (150-450); Red Blood Count 4.43 10^6 /uL (3.70-4.87); Red Cell Distribution Width 14 % (10-15)
[2018-12-22] MEDS ORDERED: Albuterol/Ipratropium NEB.SOL* Albuterol 2.5 MG/Ipratropium 0.5 MG 3 ML INH ONE (16:33)
[2018-12-22 16:54] LABS: Albumin 3.9 g/dL (3.2-5.2); Albumin/Globulin Ratio 1.3 (1-3); BUN/Creatinine Ratio 12.2 (8-20); C Reactive Protein 5.19 mg/L (<8.01); Calcium 9.4 mg/dL (8.6-10.3); EGFR African American 94.4 (>60); Potassium 3.9 mmol/L (3.5-5.0); Total Bilirubin 0.3 mg/dL (0.2-1.0); Total Protein 6.9 g/dL (6.4-8.9)
[2018-12-22 18:30] VITALS: BP 109/64
== END 2018-12-22 18:28 | disposition home or self-care (01) ==
LOC: ED 15:07
DX: J44.1 Chronic obstructive pulmonary disease with (acute) exacerbation (principal); F41.9 Anxiety disorder, unspecified; F32.9 Major depressive disorder, single episode, unspecified; Z87.891 Personal history of nicotine dependence; Z88.1 Allergy status to other antibiotic agents; Z88.8 Allergy status to other drugs, medicaments and biological substances
CPT/HCPCS: 36415; 71046; 80053; 83605; 83880; 84484; 85025; 86140; 93005; 96374; 99282; A9270-GY; J2930

== ENCOUNTER 2020-02-03 20:50 | Inpatient (IN) ==
[2020-02-03 22:39] LABS: Albumin 4.1 g/dL (3.2-5.2); Albumin/Globulin Ratio 1.3 (1-3); BUN/Creatinine Ratio 14.3 (8-20); Calcium 8.9 mg/dL (8.6-10.3); EGFR African American 81.3 (>60); EGFR Non-African American 67.2 (>60); Globulin 3.1 g/dL (2-4); Total Bilirubin 0.8 mg/dL (0.2-1.0); Total Protein 7.2 g/dL (6.4-8.9)
[2020-02-03 22:40] LABS: ABS Eosinophils 0.1 10^3/ul (0-0.6); ABS Lymphocytes 1.8 10^3/ul (1.0-4.8); ABS Monocytes 0.9 10^3/ul (0-0.8); ABS Neutrophils 13.7 10^3/ul (1.5-7.7); Eosinophil % 0.7 %; Hematocrit 39 % (35-47); Hemoglobin 13.3 g/dL (12.0-16.0); Lymphocyte % 10.6 %; Mean Corpuscular HGB Conc 34 g/dL (31-36); Mean Corpuscular Hemoglobin 32 pg (27-31); Mean Corpuscular Volume 93 fL (80-97); Nucleated Red Blood Cells % 0.2; Red Blood Count 4.17 10^6 /uL (3.70-4.87); Red Cell Distribution Width 15 % (10-15); White Blood Count 16.5 10^3/uL (3.5-10.8)
[2020-02-03 23:23] LABS: Mean Platelet Volume 7.9 fL (7.4-10.4); Platelet Count 297 10^3/uL (150-450)
[2020-02-04] MEDS ORDERED: NS 0.9% 1000 ml BAG 1,000 ML IV ONE (01:57)
[2020-02-04 03:31] LABS: Urine Appearance Cloudy; Urine Bilirubin Negative (Negative); Urine Blood 1+ (Negative); Urine Color Yellow; Urine Glucose Negative (Negative); Urine Ketones 1+ (Negative); Urine Nitrite Positive (Negative); Urine Protein Negative (Negative); Urine Specific Gravity 1.009 (1.010-1.030); Urine Urobilinogen Negative (Negative)
[2020-02-04 03:34] LABS: Urine Bacteria 3+ (Absent); Urine Red Blood Cell Trace(0-2/hpf) (Absent); Urine Squamous Epithelial Cell Present (Absent); Urine White Blood Cell 2+(11-20/hpf) (Absent)
[2020-02-04] MEDS ORDERED: cefTRIAXone 1 gm/50 mL NS BAG 1 GM/50 ML BAG IV ONE (03:52)
[2020-02-04] MEDS ORDERED: Albuterol/Ipratropium NEB.SOL (2.5/0.5 MG) 3 ML NEB.SOLN INH PRN (05:55)
[2020-02-04 07:59] LABS: Magnesium 2.3 mg/dL (1.9-2.7)
[2020-02-04 09:42] LABS: TSH Ultra Thyroid Stim Horm 3.37 mcIU/mL (0.34-5.60)
[2020-02-04] MEDS: Aspirin EC 81 mg TAB.EC (enteric coated) PO SCH (10:16)
[2020-02-04] MEDS: Enoxaparin 30 MG/0.3 ML SYR SUBCUT SCH (10:18)
[2020-02-04] MEDS: Mometasone/Formoter 100/5 MDI INH SCH ×2 (11:05→19:47)
[2020-02-04] MEDS ORDERED: Magnesium Hydroxide LIQ 30 ML UDC PO PRN (15:41)
[2020-02-04] MEDS ORDERED: Senna TAB 8.6 mg TAB PO PRN (15:41)
[2020-02-05] MEDS: cefTRIAXone 1 gm/50 mL NS BAG 1 GM/50 ML BAG IVPB SCH (04:15)
[2020-02-05] MEDS: Enoxaparin 30 MG/0.3 ML SYR SUBCUT SCH (05:27)
[2020-02-05] MEDS: Mometasone/Formoter 100/5 MDI INH SCH ×2 (07:50→19:48)
[2020-02-05] MEDS: Aspirin EC 81 mg TAB.EC (enteric coated) PO SCH (10:10)
[2020-02-06] MEDS: cefTRIAXone 1 gm/50 mL NS BAG 1 GM/50 ML BAG IVPB SCH (04:29)
[2020-02-06] MEDS: Enoxaparin 30 MG/0.3 ML SYR SUBCUT SCH (05:27)
[2020-02-06 06:39] LABS: CO2 Carbon Dioxide 18 mmol/L (22-32); Calcium 8.1 mg/dL (8.6-10.3); Chloride 105 mmol/L (101-111); Sodium 137 mmol/L (135-145)
[2020-02-06 06:44] LABS: BUN/Creatinine Ratio 7.2 (8-20); Blood Urea Nitrogen 5 mg/dL (6-24); EGFR African American 102.1 (>60); EGFR Non-African American 84.4 (>60); Glucose 79 mg/dL (70-100)
[2020-02-06 06:46] LABS: Anion Gap 14 mmol/L (2-11)
[2020-02-06 06:56] LABS: ABS Eosinophils 0.3 10^3/ul (0-0.6); ABS Lymphocytes 1.3 10^3/ul (1.0-4.8); ABS Monocytes 0.5 10^3/ul (0-0.8); ABS Neutrophils 3.7 10^3/ul (1.5-7.7); Hematocrit 37 % (35-47); Lymphocyte % 22.2 %; Mean Corpuscular HGB Conc 32 g/dL (31-36); Mean Corpuscular Hemoglobin 32 pg (27-31); Mean Corpuscular Volume 98 fL (80-97); Mean Platelet Volume 7.9 fL (7.4-10.4); Platelet Count 239 10^3/uL (150-450); Red Cell Distribution Width 15 % (10-15); White Blood Count 5.8 10^3/uL (3.5-10.8)
[2020-02-06] MEDS: Mometasone/Formoter 100/5 MDI INH SCH ×2 (07:33→19:49)
[2020-02-06 09:15] LABS: Potassium Redraw 3.6 mmol/L (3.5-5.0)
[2020-02-06] MEDS: Aspirin EC 81 mg TAB.EC (enteric coated) PO SCH (09:32)
[2020-02-07] MEDS: cefTRIAXone 1 gm/50 mL NS BAG 1 GM/50 ML BAG IVPB SCH (05:58)
[2020-02-07] MEDS: Enoxaparin 30 MG/0.3 ML SYR SUBCUT SCH (06:00)
[2020-02-07] MEDS: Mometasone/Formoter 100/5 MDI INH SCH (07:19)
[2020-02-07] MEDS: Aspirin EC 81 mg TAB.EC (enteric coated) PO SCH (08:50)
[2020-02-07 15:26] VITALS: BP 112/80
== END 2020-02-07 14:15 | disposition home health service (06) | DRG 947 ==
LOC: ED 20:50 → MED 02-04 05:55
PROVIDERS: ADMIT Internal Medicine; ATTEND Internal Medicine

== ENCOUNTER 2022-09-21 11:50 | Observation (INO) ==
[2022-09-21] MEDS ORDERED: Morphine 4 MG/ML VIAL (1 ml) IV ONE ×2 (15:39→17:04)
[2022-09-21] MEDS ORDERED: methylPREDNISolone SOD SUCC 125 mg 2 ML VIAL IV ONE (15:40)
[2022-09-21] MEDS ORDERED: Albuterol/Ipratropium NEB.SOL (2.5/0.5 MG) 3 ML NEB.SOLN INH ONE ×2 (15:40→18:39)
[2022-09-21 16:12] LABS: ABS Basophils 0.1 10^3/uL (0.0-0.1); ABS Eosinophils 0.1 10^3/uL (0.0-0.5); ABS Lymphocytes 1.7 10^3/uL (1.0-4.8); ABS Monocytes 0.5 10^3/uL (0.0-0.9); ABS Neutrophils 7.2 10^3/uL (1.5-7.6); ABS Nucleated RBC 0.01 10^3/ul; Eosinophil % 1.5 %; Hematocrit 38.7 % (35-45); Hemoglobin 12.8 g/dL (11.5-14.3); Mean Corpuscular Hemoglobin 30.1 pg (27-33); Mean Corpuscular Hgb Conc 33.1 g/dL (31-36); Mean Platelet Volume 7.7 fL (7.5-11.2); Nucleated Red Blood Cells % 0.1 /100 WBC (0.0-0.4); Platelet Count 363 10^3/uL (150-450); Red Blood Count 4.25 10^6/uL (3.63-4.92); Red Cell Distribution Width 13.7 % (12-17); White Blood Count 9.7 10^3/uL (3.8-11.8)
[2022-09-21] MEDS ORDERED: Albuterol/Ipratropium NEB.SOL (2.5/0.5 MG) 3 ML NEB.SOLN ONE (16:24)
[2022-09-21 16:26] LABS: Venous Bicarbonate HCO3 24.4 mmol/L (24-28)
[2022-09-21 16:32] LABS: INR 1.04 (0.88-1.18)
[2022-09-21 16:33] LABS: Urine Appearance Cloudy; Urine Bilirubin Negative (Negative); Urine Blood Negative (Negative); Urine Color Amber; Urine Glucose Negative (Negative); Urine Ketones 2+ (Negative); Urine Nitrite Positive (Negative); Urine Protein 1+(30 mg/dL) (Negative); Urine Specific Gravity 1.029 (1.002-1.030); Urine Urobilinogen Negative (Negative)
[2022-09-21] MEDS ORDERED: cefTRIAXone 1 gm/50 mL D5W 1 GM/50 ML BAG IV ONE (16:39)
[2022-09-21] MEDS ORDERED: Azithromycin 500 mg/250 ml NS 500 MG/250 ML BAG IVPB ONE (16:39)
[2022-09-21 16:41] LABS: Urine Bacteria 3+ (Absent); Urine Red Blood Cell Absent (Absent); Urine Squamous Epithelial Cell Present (Absent); Urine White Blood Cell 1+(6-10/hpf) (Absent)
[2022-09-21 17:05] LABS: Albumin 4.3 g/dL (3.2-5.2); Albumin/Globulin Ratio 1.5 (1-3); Calcium 9.6 mg/dL (8.6-10.3); Creatinine, Serum 0.65 mg/dL (0.51-0.95); Globulin 2.8 g/dL (2-4); Potassium 3.4 mmol/L (3.5-5.0); Total Bilirubin 0.5 mg/dL (0.2-1.0); Total Protein 7.1 g/dL (6.4-8.9); eGFR CKD-EPI 93.5 (>60)
[2022-09-21 17:32] LABS: High Sensitivity Troponin 1 Hr 4 pg/mL (<15)
[2022-09-21] MEDS ORDERED: Iohexol 350 (CONTRAST) 500 ML MDV IV ONE (17:40)
[2022-09-21] MEDS ORDERED: Magnesium Sulfate 2 gm BAG 2 GM/50 ML BAG IVPB ONE (18:39)
[2022-09-21] MEDS ORDERED: Albuterol 2.5mg/3 ml (0.083%) NEB.SOLN INH ONE (19:19)
[2022-09-21] MEDS ORDERED: Potassium Chlor 20 meq TAB.ER PO ONE (21:14)
[2022-09-21] MEDS: Enoxaparin 40 MG/0.4 ML SYR SUBCUT SCH (22:10)
[2022-09-22] MEDS: Levalbuterol HFA INHALER MDI INH PRN ×2 (04:16→23:00)
[2022-09-22 09:42] LABS: Calcium 9.2 mg/dL (8.6-10.3); Creatinine, Serum 0.73 mg/dL (0.51-0.95); Potassium 4.4 mmol/L (3.5-5.0); eGFR CKD-EPI 87.3 (>60)
[2022-09-22] MEDS: Tiotropium Brom/Olodaterol MDI (ACUTE) INH SCH (13:00)
[2022-09-22] MEDS ORDERED: Polyethylene Glycol 3350 17 GM PACKET PO PRN (14:14)
[2022-09-22] MEDS: Enoxaparin 40 MG/0.4 ML SYR SUBCUT SCH (20:36)
[2022-09-22] MEDS ORDERED: Senna TAB 8.6 mg TAB PO SCH (21:00)
[2022-09-23] MEDS: Levalbuterol HFA INHALER MDI INH PRN ×2 (05:29→09:46)
[2022-09-23] MEDS: Tiotropium Brom/Olodaterol MDI (ACUTE) INH SCH ×2 (07:15→09:50)
[2022-09-23 09:43] VITALS: BP 107/66
== END 2022-09-23 12:00 | disposition home or self-care (01) ==
LOC: ED 11:50 → EDHOLD 11:50 → SUATTDRO 20:58 → EDHOLD 22:29 → MED 22:53
PROVIDERS: ADMIT Hospitalist; ATTEND Internal Medicine

== ENCOUNTER 2023-07-02 19:43 | Inpatient (IN) ==
[2023-07-02] MEDS ORDERED: Albuterol 2.5mg/3 ml (0.083%) NEB.SOLN INH ONE ×2 (20:00→20:04)
[2023-07-02] MEDS: Albuterol 2.5mg/3 ml (0.083%) NEB.SOLN INH ONE (20:12)
[2023-07-02] MEDS: Albuterol 0.5% CONC CONTINUOUS NEB.SOL 5 mg/ml 20 ml BOT INH ONE (20:36)
[2023-07-02 20:42] LABS: Venous Bicarbonate HCO3 23.5 mmol/L (24-28)
[2023-07-02 20:52] LABS: ABS Lymphocytes 0.5 10^3/uL (1.0-4.8); ABS Monocytes 0.9 10^3/uL (0.0-0.9); Eosinophil % 0.1 %; Hematocrit 36.3 % (35-45); Hemoglobin 12.1 g/dL (11.5-14.3); Lymphocyte % 4.4 %; Mean Corpuscular Hemoglobin 30.6 pg (27-33); Mean Corpuscular Hgb Conc 33.4 g/dL (31-36); Mean Corpuscular Volume 91.7 fL (80-97); Mean Platelet Volume 7.4 fL (7.5-11.2); Platelet Count 324 10^3/uL (150-450); Red Blood Count 3.96 10^6/uL (3.63-4.92); Red Cell Distribution Width 14.2 % (12-17); White Blood Count 11.5 10^3/uL (3.8-11.8)
[2023-07-02 21:11] LABS: Albumin 4.3 g/dL (3.2-5.2); Albumin/Globulin Ratio 1.9 (1-3); C Reactive Protein 1.34 mg/L (<8.01); Calcium 8.9 mg/dL (8.6-10.3); Creatinine, Serum 0.64 mg/dL (0.51-0.95); Globulin 2.3 g/dL (2-4); Potassium 3.7 mmol/L (3.5-5.0); Total Bilirubin 0.3 mg/dL (0.2-1.0); Total Protein 6.6 g/dL (6.4-8.9); eGFR CKD-EPI 93.8 (>60)
[2023-07-02 22:04] LABS: High Sensitivity Troponin 1 Hr 131 pg/mL (<15)
[2023-07-02] MEDS ORDERED: Levalbuterol HFA INHALER MDI INH PRN ×2 (22:29→22:36)
[2023-07-02] MEDS ORDERED: Albuterol/Ipratropium NEB.SOL (2.5/0.5 MG) 3 ML NEB.SOLN INH PRN (22:36)
[2023-07-02] MEDS ORDERED: Polyethylene Glycol 3350 17 GM PACKET PO PRN (22:36)
[2023-07-02] MEDS: methylPREDNISolone SOD SUCC 40 mg/ml 1 ml VIAL IV SCH (22:56)
[2023-07-02] MEDS: Nitro 2% OINT (Nitroglycerin) 1 INCH/PAK TOPICAL ONE (22:56)
[2023-07-02 23:02] LABS: PCO2 Arterial 40 mmHg (35-45); PO2 Arterial 155 mmHg (80-100)
[2023-07-02 23:35] LABS: High Sensitivity Troponin 3 Hr 307 pg/mL (<15)
[2023-07-03] MEDS: Enoxaparin 60 MG/0.6 ML SYR SUBCUT SCH (00:19)
[2023-07-03] MEDS: cefTRIAXone 1 gm/50 mL D5W 1 GM/50 ML BAG IV SCH (00:44)
[2023-07-03] MEDS: DOXYcycline 100 MG in NS 0.9% 250 ml 250 ML IVPB SCH (00:50)
[2023-07-03 05:08] LABS: ABS Lymphocytes 0.5 10^3/uL (1.0-4.8); ABS Monocytes 0.5 10^3/uL (0.0-0.9); ABS Neutrophils 14.7 10^3/uL (1.5-7.6); Eosinophil % 0.1 %; Hematocrit 37.8 % (35-45); Hemoglobin 12.5 g/dL (11.5-14.3); Lymphocyte % 3.1 %; Mean Corpuscular Hemoglobin 30.7 pg (27-33); Mean Corpuscular Hgb Conc 32.9 g/dL (31-36); Mean Corpuscular Volume 93.3 fL (80-97); Mean Platelet Volume 7.7 fL (7.5-11.2); Platelet Count 474 10^3/uL (150-450); Red Blood Count 4.06 10^6/uL (3.63-4.92); Red Cell Distribution Width 14.3 % (12-17); White Blood Count 15.8 10^3/uL (3.8-11.8)
[2023-07-03 05:45] LABS: Calcium 8.7 mg/dL (8.6-10.3); Creatinine, Serum 0.64 mg/dL (0.51-0.95); HDL Cholesterol 80.2 mg/dL; Potassium 5.4 mmol/L (3.5-5.0); eGFR CKD-EPI 93.8 (>60)
[2023-07-03 05:57] LABS: TSH Ultra Thyroid Stim Horm 12.19 mcIU/mL (0.34-5.60)
[2023-07-03] MEDS: CMCS:FLUTICAS/UMECLI/VILANT 200-62.5-25 MDI (NF) INH SCH (07:07)
[2023-07-03] MEDS: Morphine 2 MG/ML SYRINGE IV ONE ×2 (07:12→13:40)
[2023-07-03] MEDS: Morphine 4 MG/ML VIAL (1 ml) ONE ×2 (07:36→13:48)
[2023-07-03] MEDS ORDERED: Sulfur Hexaflouride MICROSPHR 25 MG VIAL ONE (12:34)
[2023-07-03] MEDS: Albuterol/Ipratropium NEB.SOL (2.5/0.5 MG) 3 ML NEB.SOLN INH PRN (13:46)
[2023-07-03] MEDS: Furosemide 20 mg/2 ml IV VIAL IV SLOW PU ONE (13:47)
[2023-07-03] MEDS: Senna TAB 8.6 mg TAB PO SCH (19:51)
[2023-07-03] MEDS: Albuterol/Ipratropium NEB.SOL (2.5/0.5 MG) 3 ML NEB.SOLN INH SCH (19:59)
[2023-07-03] MEDS: Morphine 2 MG/ML SYRINGE IV PRN (23:30)
[2023-07-04 01:20] LABS: High Sensitivity Troponin 1 Hr 882 pg/mL (<15)
[2023-07-04 04:26] LABS: Creatinine, Serum 0.56 mg/dL (0.51-0.95); Potassium 4.6 mmol/L (3.5-5.0); eGFR CKD-EPI 96.9 (>60)
[2023-07-04 04:40] LABS: Hematocrit 36.4 % (35-45); Hemoglobin 12.1 g/dL (11.5-14.3); Mean Corpuscular Hemoglobin 30.7 pg (27-33); Mean Corpuscular Hgb Conc 33.3 g/dL (31-36); Mean Platelet Volume 8.3 fL (7.5-11.2); Platelet Count 359 10^3/uL (150-450); Red Blood Count 3.95 10^6/uL (3.63-4.92); Red Cell Distribution Width 14.3 % (12-17); White Blood Count 19.6 10^3/uL (3.8-11.8)
[2023-07-04 04:47] LABS: High Sensitivity Troponin 3 Hr 847 pg/mL (<15)
[2023-07-04] MEDS: Pantoprazole VIAL 40 MG VIAL IV SCH (09:53)
[2023-07-04] MEDS: Furosemide 40 mg/4 ml IV VIAL IV ONE (09:54)
[2023-07-04] MEDS: Albuterol/Ipratropium NEB.SOL (2.5/0.5 MG) 3 ML NEB.SOLN INH SCH (19:31)
[2023-07-05 04:59] LABS: Hematocrit 38.3 % (35-45); Hemoglobin 12.8 g/dL (11.5-14.3); Mean Corpuscular Hemoglobin 30.9 pg (27-33); Mean Corpuscular Hgb Conc 33.3 g/dL (31-36); Mean Corpuscular Volume 92.8 fL (80-97); Mean Platelet Volume 7.6 fL (7.5-11.2); Platelet Count 325 10^3/uL (150-450); Red Blood Count 4.13 10^6/uL (3.63-4.92); Red Cell Distribution Width 14.1 % (12-17); White Blood Count 14.8 10^3/uL (3.8-11.8)
[2023-07-05 05:39] LABS: Calcium 8.7 mg/dL (8.6-10.3); Creatinine, Serum 0.69 mg/dL (0.51-0.95); Potassium 4.5 mmol/L (3.5-5.0); eGFR CKD-EPI 92.2 (>60)
[2023-07-06 05:22] LABS: ABS Lymphocytes 0.4 10^3/uL (1.0-4.8); ABS Monocytes 0.5 10^3/uL (0.0-0.9); ABS Neutrophils 10.9 10^3/uL (1.5-7.6); ABS Nucleated RBC 0.01 10^3/ul; Eosinophil % 0.1 %; Hematocrit 34.2 % (35-45); Hemoglobin 11.6 g/dL (11.5-14.3); Lymphocyte % 3.8 %; Mean Corpuscular Hemoglobin 30.8 pg (27-33); Mean Corpuscular Hgb Conc 33.9 g/dL (31-36); Mean Corpuscular Volume 90.9 fL (80-97); Mean Platelet Volume 8.1 fL (7.5-11.2); Platelet Count 317 10^3/uL (150-450); Red Blood Count 3.77 10^6/uL (3.63-4.92); Red Cell Distribution Width 13.9 % (12-17); White Blood Count 11.8 10^3/uL (3.8-11.8)
[2023-07-06 06:04] LABS: Calcium 8.3 mg/dL (8.6-10.3); Creatinine, Serum 0.57 mg/dL (0.51-0.95); Magnesium 1.9 mg/dL (1.9-2.7); Potassium 4.1 mmol/L (3.5-5.0); eGFR CKD-EPI 96.5 (>60)
[2023-07-06] MEDS ORDERED: Sulfur Hexaflouride MICROSPHR 25 MG VIAL ONE (10:12)
[2023-07-06] MEDS ORDERED: Heparin 1,000 UNIT/ML 10 ml (10,000 UNITS) CATHLAB/DIALYSIS ONE (10:25)
[2023-07-06] MEDS ORDERED: VERAPAMIL 2.5 MG/ML 2 ML VIAL ** 5 mg/2 ml ONE (10:25)
[2023-07-06] MEDS ORDERED: nitroGLYCERIN DRIP 25,000 MCG/250 ML BTL ONE (10:26)
[2023-07-06] MEDS ORDERED: Iohexol 350 (CONTRAST) 100 ML PAK IV ONE (10:26)
[2023-07-06] MEDS ORDERED: Lidocaine 1% MPF 5 ML VIAL ONE (10:26)
[2023-07-06] MEDS ORDERED: Heparin 2 UNITS/ML 1000 mls 2,000 ML IV ONE (10:26)
[2023-07-06] MEDS ORDERED: fentaNYL 100 mcg/2 ml 50 MCG/ML VIAL ONE (10:39)
[2023-07-06] MEDS ORDERED: Midazolam 5 mg/5 ml VIAL 1 mg/ml 5 ml VIAL (5 mg) ONE (10:39)
[2023-07-06 10:45] LABS: Activated Partial Thrombo Time 22.9 seconds (26.0-38.0); INR 0.98 (0.83-1.13)
[2023-07-06] MEDS: NS 0.9% 1000 ml BAG 1,000 ML IV SCH (11:41)
[2023-07-06] MEDS: Albuterol/Ipratropium NEB.SOL (2.5/0.5 MG) 3 ML NEB.SOLN INH PRN (13:20)
[2023-07-06] MEDS: Albuterol/Ipratropium NEB.SOL (2.5/0.5 MG) 3 ML NEB.SOLN ONE (13:21)
[2023-07-06] MEDS: FLUTICAS/UMECLI/VILANT 200-62.5-25 MDI (NF) INH SCH (13:52)
[2023-07-06] MEDS ORDERED: Albuterol/Ipratropium NEB.SOL (2.5/0.5 MG) 3 ML NEB.SOLN INH SCH (19:00)
[2023-07-07 04:16] LABS: ABS Lymphocytes 1.1 10^3/uL (1.0-4.8); ABS Monocytes 1.3 10^3/uL (0.0-0.9); ABS Nucleated RBC 0.01 10^3/ul; Eosinophil % 0.1 %; Hematocrit 34.1 % (35-45); Hemoglobin 11.2 g/dL (11.5-14.3); Lymphocyte % 7.7 %; Mean Corpuscular Hemoglobin 30.1 pg (27-33); Mean Corpuscular Hgb Conc 32.9 g/dL (31-36); Mean Corpuscular Volume 91.3 fL (80-97); Mean Platelet Volume 7.7 fL (7.5-11.2); Platelet Count 332 10^3/uL (150-450); Red Blood Count 3.73 10^6/uL (3.63-4.92); Red Cell Distribution Width 14.3 % (12-17); White Blood Count 14.5 10^3/uL (3.8-11.8)
[2023-07-07 04:52] LABS: Calcium 8.1 mg/dL (8.6-10.3); Creatinine, Serum 0.6 mg/dL (0.51-0.95); Magnesium 1.8 mg/dL (1.9-2.7); Potassium 3.5 mmol/L (3.5-5.0); eGFR CKD-EPI 95.3 (>60)
[2023-07-07] MEDS: Magnesium Sulfate 2 gm BAG 2 GM/50 ML BAG ONE (05:53)
[2023-07-07] MEDS: Potassium Chlor 20 meq TAB.ER PO ONE (05:55)
[2023-07-07] MEDS: Magnesium Sulfate 2 gm BAG 2 GM/50 ML BAG IVPB ONE (05:55)
[2023-07-07 08:32] VITALS: BP 109/61
== END 2023-07-07 09:50 | disposition home or self-care (01) | DRG 280 ==
LOC: ED 19:43 → EDHOLD 22:23 → SUATTDRO 22:23 → ICU 23:24
PROVIDERS: ADMIT Internal Medicine; ATTEND Surgery Surgical Critical Care